=== PATIENT | male | born 1970 | race Two or more races ===

== ENCOUNTER 2024-01-07 17:06 | Inpatient (IN) | payer MEDICAID ==
[~2024-01-07] VITALS: Ht 162.6 cm; Wt 54.5 kg
[2024-01-07 18:02] LABS: Basophils # (auto) 0 10 ^3/uL (0-0.2); Basophils % (auto) 0.6 % (0.0-2.0); Eosinophils # (auto) 0.1 10 ^3/uL (0-0.8); Eosinophils % (auto) 0.9 % (0.0-7.0); Hematocrit 41.9 % (41.0-53.0); Hemoglobin 13.9 g/dL (13.5-17.5); Lymphocytes # (auto) 1.6 10 ^3/uL (0.4-5.4); Lymphocytes % (auto) 22.8 % (10.0-50.0); Mean Corpuscular Hgb Conc. 33.1 g/dL (32.0-36.0); Mean Corpuscular Volume 90.5 fL (80.0-100.0); Monocytes # (auto) 0.5 10 ^3/uL (0-1.3); Monocytes % (auto) 6.7 % (0.0-12.0); Neutrophils # (auto) 4.9 10 ^3/uL (1.6-8.6); Nucleated Red Blood Cells % 0.1 %; Red Blood Cells 4.63 10^6/uL (4.5-5.90); Red Cell Distribution Width 13.3 % (11.8-14.3); White Blood Cell 7.1 10^3/uL (4.4-10.8)
[2024-01-07 18:12] LABS: Chloride 102 mmol/L (98-107); Potassium 3.7 mmol/L (3.5-5.1); Sodium 135 mmol/L (136-145)
[2024-01-07 18:13] LABS: Anion Gap 7 (5-15); Carbon Dioxide 26 mmol/L (20-30)
[2024-01-07 18:14] LABS: Calcium 9.3 mg/dL (8.5-10.1)
[2024-01-07 18:18] LABS: BUN/Creatinine Ratio 11.3 (10.0-20.0); Blood Urea Nitrogen 9 mg/dL (9-23); Glucose 376 mg/dL (74-106)
[2024-01-07 18:24] LABS: Lactic Acid w/Reflex 3.9 mmol/L (0.4-2.0)
[2024-01-07] MEDS: SODIUM CHLORIDE 0.9% 1,650 ML IV ONE (20:32)
[2024-01-07] MEDS: VANCOMYCIN 1GM/200ML 200 ML IV ONE (20:32)
[2024-01-07] MEDS: cefTRIAXone 1GM/50ML D5W 50 ML IV ONE (20:32)
[2024-01-07] MEDS ORDERED: DEXTROSE (50%) 50ML SYRG IV PRN ×2 (22:15→22:30)
[2024-01-07] MEDS ORDERED: ONDANSETRON HCL 4 MG/2 ML VIAL IV PRN ×2 (22:15→22:30)
[2024-01-07] MEDS ORDERED: ACETAMINOPHEN 325 MG TAB PO PRN ×2 (22:15→22:30)
[2024-01-07] MEDS ORDERED: HYDROcodone-ACET 5/325MG TAB PO PRN (22:15)
[2024-01-07] MEDS: HYDROcodone-ACET 5/325MG TAB PO PRN (23:01)
[2024-01-08] MEDS ORDERED: InsuLIN REG 1unit/0.01ml Soln (100units/ml) SC SCH
[2024-01-08] MEDS ORDERED: ACCU-CHEK COMFORT CURVE STRIP VI SCH
[2024-01-08] MEDS: ACCU-CHEK COMFORT CURVE STRIP VI SCH (01:13)
[2024-01-08] MEDS: InsuLIN REG 1unit/0.01ml Soln (100units/ml) SC SCH (01:15)
[2024-01-08 02:52] VITALS: PULSE 93; RESP 15; O2SAT 100
[2024-01-08 04:32] LABS: Urine Bacteria NONE SEEN /hpf (None Seen); Urine Blood Negative /uL (Negative); Urine Clarity Clear (Clear); Urine Color Colorless (Yellow); Urine Protein, UAD Negative (Negative); Urine Specific Gravity 1.022 (1.001-1.035); Urine Urobilinogen Normal (Negative); Urine WBC 1 /hpf (0 - 3)
[2024-01-08] MEDS: CLINDAMYCIN 600MG IV 50 ML IV SCH (05:05)
[2024-01-08 05:16] LABS: Basophils # (auto) 0 10 ^3/uL (0-0.2); Basophils % (auto) 0.4 % (0.0-2.0); Eosinophils # (auto) 0.1 10 ^3/uL (0-0.8); Eosinophils % (auto) 1.3 % (0.0-7.0); Hematocrit 38.8 % (41.0-53.0); Hemoglobin 13.3 g/dL (13.5-17.5); Lymphocytes # (auto) 1.5 10 ^3/uL (0.4-5.4); Lymphocytes % (auto) 24.2 % (10.0-50.0); Mean Corpuscular Hemoglobin 30.6 pg (28.0-32.0); Mean Corpuscular Hgb Conc. 34.2 g/dL (32.0-36.0); Mean Corpuscular Volume 89.5 fL (80.0-100.0); Monocytes # (auto) 0.6 10 ^3/uL (0-1.3); Monocytes % (auto) 9.1 % (0.0-12.0); Nucleated Red Blood Cells % 0.1 %; Red Blood Cells 4.33 10^6/uL (4.5-5.90); Red Cell Distribution Width 13.2 % (11.8-14.3); White Blood Cell 6.1 10^3/uL (4.4-10.8)
[2024-01-08 05:42] LABS: Alanine Aminotransferase 12 U/L (7-40); Albumin 3.4 g/dL (3.2-4.8); Alkaline Phosphatase 176 U/L (46-116); Anion Gap 6 (5-15); Aspartate Aminotransferase 15 U/L (13-40); BUN/Creatinine Ratio 14.3 (10.0-20.0); Bilirubin, Total 0.5 mg/dL (0.2-1.0); Blood Urea Nitrogen 8 mg/dL (9-23); Calcium 9.3 mg/dL (8.7-10.4); Carbon Dioxide 26 mmol/L (20-30); Chloride 107 mmol/L (98-107); Potassium 3.1 mmol/L (3.5-5.1); Sodium 139 mmol/L (136-145); Total Protein 5.9 g/dL (5.7-8.2)
[2024-01-08 05:51] LABS: Glucose 118 mg/dL (74-106)
[2024-01-08] MEDS ORDERED: CLINDAMYCIN 600MG IV 50 ML IV SCH (06:00)
[2024-01-08] MEDS: hydrALAZINE HCL 20 MG/ML VL IV PRN (06:11)
[2024-01-08] MEDS: LISINOPRIL 5 MG TAB PO SCH (09:04)
[2024-01-08] MEDS ORDERED: LISINOPRIL 5 MG TAB PO SCH (10:00)
[2024-01-08 10:08] VITALS: PULSE 103; RESP 15
[2024-01-08] MEDS ORDERED: POTASSIUM EFFERVESENT TAB 25 MEQ GT ONE (11:00)
[2024-01-08 11:24] LABS: Triglycerides 163 mg/dL (< 150)
[2024-01-08 11:25] LABS: LDL Cholesterol 132 mg/dL (< 100)
[2024-01-08 11:26] LABS: Cholesterol 194 mg/dL (< 200); HDL Cholesterol 54 mg/dL (40-59)
[2024-01-08 12:07] VITALS: O2SAT 98
[2024-01-08] MEDS: ENOXAPARIN SOD 40 MG/0.4 ML SYRINGE SC ONE (12:25)
[2024-01-08] MEDS: POTASSIUM EFFERVESENT TAB 25 MEQ PO ONE (12:25)
[2024-01-08] MEDS: PANTOPRAZOLE 40 MG TAB PO ONE (12:26)
[2024-01-08] MEDS: ATORVASTATIN 20 MG TAB PO ONE (12:26)
[2024-01-08] MEDS ORDERED: CLIN-203 PO (13:47)
[2024-01-08] MEDS ORDERED: ERGO1CAP23 PO (14:57)
[2024-01-08] MEDS: CLINDAMYCIN HCL 150 MG CAP PO SCH (15:03)
[2024-01-08 16:15] VITALS: BP 154/98; TEMP 36.4
[2024-01-08] MEDS ORDERED: INSULIN LANTUS (GLARGINE) 1 /0.01ml (100units/ml) SC SCH (18:00)
[2024-01-08] MEDS ORDERED: ATORVASTATIN 20 MG TAB PO SCH (22:00)
[2024-01-09] MEDS ORDERED: ENOXAPARIN SOD 40 MG/0.4 ML SYRINGE SC SCH (10:00)
[2024-01-09] MEDS ORDERED: LISINOPRIL 5 MG TAB PO SCH (10:00)
[2024-01-09] MEDS ORDERED: PANTOPRAZOLE 40 MG TAB PO SCH (10:00)
== END 2024-01-08 17:44 | disposition home or self-care (01) | DRG 351 ==
LOC: ER 17:06 → OVERFLOW 22:22 → ER 22:22 → WEST WING 01-08 11:37
PROVIDERS: ADMIT Internal Medicine Pulmonary Disease; ATTEND Internal Medicine Pulmonary Disease
DX: M25.461 Effusion, right knee (principal); E87.20 Acidosis, unspecified; E11.621 Type 2 diabetes mellitus with foot ulcer; E11.65 Type 2 diabetes mellitus with hyperglycemia; L03.115 Cellulitis of right lower limb; L03.116 Cellulitis of left lower limb; F17.210 Nicotine dependence, cigarettes, uncomplicated; I10 Essential (primary) hypertension; E55.9 Vitamin D deficiency, unspecified; M48.061 Spinal stenosis, lumbar region without neurogenic claudication; Z79.4 Long term (current) use of insulin; Z90.49 Acquired absence of other specified parts of digestive tract
CPT/HCPCS: 36415; 72131; 73700; 73721; 80048; 80053; 80061; 81001; 82306; 82962; 83036; 83605; 84439; 84443; 85025; 87040; 93005; 96365; 96368; G0378; J1815; J3490

== ENCOUNTER 2024-01-18 20:10 | Inpatient (IN) | payer MEDICAID ==
[~2024-01-18] VITALS: Ht 165.1 cm; Wt 63.5 kg
[~2024-01-18 20:10] MED LIST: CLIN-203 PO; ERGO1CAP23 PO
[2024-01-18 21:28] LABS: Urine Bacteria None Seen /hpf (None Seen)
[2024-01-18 21:45] LABS: Urine Amorphous Crystal FEW /hpf (None Seen); Urine Blood Negative /uL (Negative); Urine Clarity Clear (Clear); Urine Color Light-Yellow (Yellow); Urine Protein, UAD Negative (Negative); Urine Specific Gravity 1.014 (1.001-1.035); Urine Urobilinogen Normal (Negative); Urine WBC 1 /hpf (0 - 3)
[2024-01-18 23:31] LABS: Basophils # (auto) 0 10 ^3/uL (0-0.2); Basophils % (auto) 0.3 % (0.0-2.0); Eosinophils # (auto) 0.1 10 ^3/uL (0-0.8); Eosinophils % (auto) 1.3 % (0.0-7.0); Hematocrit 39.8 % (41.0-53.0); Hemoglobin 13.4 g/dL (13.5-17.5); Lymphocytes # (auto) 1.6 10 ^3/uL (0.4-5.4); Lymphocytes % (auto) 16.4 % (10.0-50.0); Mean Corpuscular Hemoglobin 30.6 pg (28.0-32.0); Mean Corpuscular Hgb Conc. 33.6 g/dL (32.0-36.0); Mean Corpuscular Volume 91.1 fL (80.0-100.0); Monocytes # (auto) 0.7 10 ^3/uL (0-1.3); Monocytes % (auto) 7.5 % (0.0-12.0); Neutrophils # (auto) 7.4 10 ^3/uL (1.6-8.6); Neutrophils % (auto) 74.5 % (37.0-80.0); Red Blood Cells 4.36 10^6/uL (4.5-5.90); Red Cell Distribution Width 13.6 % (11.8-14.3); White Blood Cell 9.9 10^3/uL (4.4-10.8)
[2024-01-19 00:01] LABS: Alanine Aminotransferase 19 U/L (7-40); Albumin 3.8 g/dL (3.2-4.8); Alkaline Phosphatase 206 U/L (46-116); Anion Gap 6 (5-15); Aspartate Aminotransferase 20 U/L (13-40); BUN/Creatinine Ratio 10.3 (10.0-20.0); Bilirubin, Total 0.2 mg/dL (0.2-1.0); Blood Urea Nitrogen 12 mg/dL (9-23); Carbon Dioxide 27 mmol/L (20-30); Chloride 104 mmol/L (98-107); Glucose 294 mg/dL (74-106); Potassium 4.4 mmol/L (3.5-5.1); Sodium 137 mmol/L (136-145); Total Protein 6.7 g/dL (5.7-8.2)
[2024-01-19 00:14] LABS: Erythrocyte Sedimentation Rate 35 mm/hr (0-20)
[2024-01-19] MEDS: metroNIDAZOLE 500MG/100ML 100 ML IV ONE (06:38)
[2024-01-19 08:14] VITALS: O2SAT 99
[2024-01-19] MEDS: AMPICILLIN & SULBACTAM SODIUM 3 GM in SODIUM CHL 0.9% 100 ML IV SCH (08:43)
[2024-01-19] MEDS ORDERED: DEXTROSE (50%) 50ML SYRG IV PRN (09:15)
[2024-01-19] MEDS ORDERED: ONDANSETRON HCL 4 MG/2 ML VIAL IV PRN (09:15)
[2024-01-19] MEDS ORDERED: DOCUSATE SOD 100 MG CAP PO PRN (09:15)
[2024-01-19] MEDS: MORPHINE SULFATE INJ 2 MG/ml SYRG ONE ×2 (09:17→21:57)
[2024-01-19] MEDS: ONDANSETRON HCL 4 MG/2 ML VIAL ONE (09:17)
[2024-01-19] MEDS: MORPHINE SULFATE INJ 2 MG/ml SYRG IV ONE (09:20)
[2024-01-19] MEDS: ONDANSETRON HCL 4 MG/2 ML VIAL IV ONE (09:20)
[2024-01-19] MEDS: SODIUM CHLORIDE 0.9% 1,000 ML IV SCH (09:31)
[2024-01-19] MEDS: ENOXAPARIN SOD 40 MG/0.4 ML SYRINGE SC ONE (09:43)
[2024-01-19] MEDS: ENOXAPARIN SOD 40 MG/0.4 ML SYRINGE SC SCH (09:44)
[2024-01-19] MEDS ORDERED: LISINOPRIL 5 MG TAB PO ONE (11:45)
[2024-01-19] MEDS: ACCU-CHEK COMFORT CURVE STRIP VI SCH (12:22)
[2024-01-19] MEDS: InsuLIN REG 1unit/0.01ml Soln (100units/ml) ONE (12:24)
[2024-01-19] MEDS: LISINOPRIL 5 MG TAB ONE (12:25)
[2024-01-19] MEDS: PIPERACILLIN-TAZOB 3.375GM 100 ML IV ONE (12:25)
[2024-01-19] MEDS: LISINOPRIL 5 MG TAB PO ONE (12:27)
[2024-01-19] MEDS: InsuLIN REG 1unit/0.01ml Soln (100units/ml) SC SCH (12:27)
[2024-01-19] MEDS: PIPERACILLIN-TAZOB 3.375GM 100 ML IV SCH ×2 (12:27→21:57)
[2024-01-19 16:16] VITALS: PULSE 89; RESP 16; O2SAT 98
[2024-01-19] MEDS ORDERED: INSU100I70 SC (16:57)
[2024-01-19] MEDS ORDERED: INSU100I4 SC (16:57)
[2024-01-19] MEDS ORDERED: InsuLIN REG 1unit/0.01ml Soln (100units/ml) ONE (18:41)
[2024-01-19 21:00] VITALS: BP 125/98; PULSE 91; RESP 18; TEMP 97.9; O2SAT 98
[2024-01-19] MEDS: MORPHINE SULFATE INJ 2 MG/ml SYRG IV PRN (21:56)
[2024-01-20] VITALS (7 sets, daily range): BP systolic 109–148; BP diastolic 75–88; PULSE 89–96; RESP 17–19; TEMP 97.9–98.8; O2SAT 97–100
[2024-01-20] MEDS ORDERED: MORPHINE SULFATE INJ 2 MG/ml SYRG ONE ×3 (08:50→20:30)
[2024-01-20] MEDS: LISINOPRIL 5 MG TAB PO SCH (09:13)
[2024-01-20] MEDS ORDERED: LISINOPRIL 5 MG TAB PO SCH (10:00)
[2024-01-20] MEDS: InsuLIN REG 1unit/0.01ml Soln (100units/ml) ONE (11:55)
[2024-01-20 12:13] LABS: Basophils # (auto) 0 10 ^3/uL (0-0.2); Basophils % (auto) 0.5 % (0.0-2.0); Eosinophils # (auto) 0.1 10 ^3/uL (0-0.8); Eosinophils % (auto) 1.7 % (0.0-7.0); Hematocrit 35.9 % (41.0-53.0); Hemoglobin 11.8 g/dL (13.5-17.5); Lymphocytes # (auto) 1.5 10 ^3/uL (0.4-5.4); Lymphocytes % (auto) 22.6 % (10.0-50.0); Mean Corpuscular Hemoglobin 30.1 pg (28.0-32.0); Mean Corpuscular Volume 91.4 fL (80.0-100.0); Monocytes # (auto) 0.5 10 ^3/uL (0-1.3); Monocytes % (auto) 7.1 % (0.0-12.0); Neutrophils # (auto) 4.6 10 ^3/uL (1.6-8.6); Neutrophils % (auto) 68.1 % (37.0-80.0); Red Blood Cells 3.92 10^6/uL (4.5-5.90); Red Cell Distribution Width 13.8 % (11.8-14.3); White Blood Cell 6.8 10^3/uL (4.4-10.8)
[2024-01-20 12:25] LABS: Chloride 107 mmol/L (98-107); Potassium 3.6 mmol/L (3.5-5.1); Sodium 140 mmol/L (136-145)
[2024-01-20 12:26] LABS: Anion Gap 9 (5-15); Calcium 8.6 mg/dL (8.5-10.1); Carbon Dioxide 24 mmol/L (20-30)
[2024-01-20 12:31] LABS: BUN/Creatinine Ratio 18.3 (10.0-20.0); Blood Urea Nitrogen 11 mg/dL (9-23)
[2024-01-20 12:33] LABS: Glucose 143 mg/dL (74-106)
[2024-01-20] MEDS ORDERED: InsuLIN REG 1unit/0.01ml Soln (100units/ml) ONE (17:34)
[2024-01-21] VITALS (7 sets, daily range): BP systolic 112–163; BP diastolic 78–97; PULSE 88–98; RESP 18–20; TEMP 97.4–98.3; O2SAT 97–100
[2024-01-21] MEDS ORDERED: MORPHINE SULFATE INJ 2 MG/ml SYRG ONE (02:54)
[2024-01-21] MEDS: hydrALAZINE HCL 20 MG/ML VL IV PRN (06:41)
[2024-01-21 07:40] LABS: Basophils # (auto) 0 10 ^3/uL (0-0.2); Basophils % (auto) 0.7 % (0.0-2.0); Eosinophils # (auto) 0.1 10 ^3/uL (0-0.8); Eosinophils % (auto) 1.3 % (0.0-7.0); Hematocrit 39.4 % (41.0-53.0); Hemoglobin 12.6 g/dL (13.5-17.5); Lymphocytes # (auto) 1.4 10 ^3/uL (0.4-5.4); Lymphocytes % (auto) 20.8 % (10.0-50.0); Mean Corpuscular Hemoglobin 30.2 pg (28.0-32.0); Mean Corpuscular Hgb Conc. 31.9 g/dL (32.0-36.0); Mean Corpuscular Volume 94.7 fL (80.0-100.0); Monocytes # (auto) 0.6 10 ^3/uL (0-1.3); Monocytes % (auto) 8.2 % (0.0-12.0); Neutrophils # (auto) 4.8 10 ^3/uL (1.6-8.6); Nucleated Red Blood Cells % 0.1 %; Red Blood Cells 4.16 10^6/uL (4.5-5.90); White Blood Cell 6.9 10^3/uL (4.4-10.8)
[2024-01-21 07:51] LABS: Chloride 106 mmol/L (98-107)
[2024-01-21 07:52] LABS: Anion Gap 5 (5-15); Calcium 8.8 mg/dL (8.7-10.4); Carbon Dioxide 24 mmol/L (20-30)
[2024-01-21 07:57] LABS: Glucose 146 mg/dL (74-106); Magnesium 1.8 mg/dL (1.6-2.6)
[2024-01-21 08:01] LABS: BUN/Creatinine Ratio 8.9 (10.0-20.0); Blood Urea Nitrogen < 5 mg/dL (9-23); Sodium 135 mmol/L (136-145)
[2024-01-21] MEDS: LISINOPRIL 20 MG TAB PO SCH (10:06)
[2024-01-21] MEDS: HYDROcodone-ACET 5/325MG TAB PO ONE (11:22)
[2024-01-21] MEDS: HYDROcodone-ACET 5/325MG TAB PO PRN (16:01)
[2024-01-21] MEDS: MORPHINE SULFATE INJ 2 MG/ml SYRG IV PRN (21:13)
[2024-01-21 23:23] LABS: Amphetamine Screen, Urine Neg (NEGATIVE); Barbiturate Scree,Urine Neg (NEGATIVE); Benzodiazephine Screen, Urine Neg (NEGATIVE); Cocaine Screen, Urine Neg (NEGATIVE)
[2024-01-21 23:24] LABS: Cannabinoid Screen, Urine Pos (NEGATIVE); Opiate Scree,Urine Neg (NEGATIVE); Phencyclidine Screen, Urine Neg (NEGATIVE)
[2024-01-21 23:31] LABS: Urine Bacteria FEW /hpf (None Seen); Urine Blood 3+ /uL (Negative); Urine Clarity Turbid (Clear); Urine Color Colorless (Yellow); Urine Protein, UAD Negative (Negative); Urine Specific Gravity 1.017 (1.001-1.035); Urine Urobilinogen Normal (Negative); Urine WBC 8 /hpf (0 - 3); Urine pH 6.5 (5.0-9.0)
[2024-01-22 06:02] LABS: Basophils # (auto) 0 10 ^3/uL (0-0.2); Basophils % (auto) 0.4 % (0.0-2.0); Eosinophils # (auto) 0.1 10 ^3/uL (0-0.8); Eosinophils % (auto) 2.5 % (0.0-7.0); Hematocrit 32.9 % (41.0-53.0); Hemoglobin 11.2 g/dL (13.5-17.5); Lymphocytes # (auto) 1.2 10 ^3/uL (0.4-5.4); Mean Corpuscular Hemoglobin 30.8 pg (28.0-32.0); Mean Corpuscular Volume 90.5 fL (80.0-100.0); Monocytes # (auto) 0.6 10 ^3/uL (0-1.3); Monocytes % (auto) 10.7 % (0.0-12.0); Neutrophils # (auto) 3.8 10 ^3/uL (1.6-8.6); Neutrophils % (auto) 65.4 % (37.0-80.0); Red Blood Cells 3.63 10^6/uL (4.5-5.90); Red Cell Distribution Width 13.3 % (11.8-14.3); White Blood Cell 5.8 10^3/uL (4.4-10.8)
[2024-01-22 06:09] LABS: Anion Gap 4 (5-15); Carbon Dioxide 28 mmol/L (20-30); Chloride 102 mmol/L (98-107); Sodium 134 mmol/L (136-145)
[2024-01-22 06:10] LABS: Calcium 8.7 mg/dL (8.7-10.4)
[2024-01-22 06:11] VITALS: BP 155/96; PULSE 79; RESP 19; TEMP 98.7; O2SAT 97
[2024-01-22 06:15] LABS: BUN/Creatinine Ratio 12.7 (10.0-20.0); Blood Urea Nitrogen 8 mg/dL (9-23); Magnesium 1.7 mg/dL (1.6-2.6)
[2024-01-22 06:26] LABS: Glucose 344 mg/dL (74-106)
[2024-01-22 09:00] VITALS: BP 134/84; PULSE 90; RESP 20; TEMP 98.3; O2SAT 96
[2024-01-22] MEDS: INSULIN LANTUS (GLARGINE) 1 /0.01ml (100units/ml) SC SCH (10:00)
[2024-01-22 12:06] LABS: PSA Free 0.08 ng/mL; Prostate Specific Antigen 0.8 ng/mL (0.0-4.0)
[2024-01-22 12:45] VITALS: BP 130/69; PULSE 93; RESP 20; TEMP 98.2; O2SAT 97
[2024-01-22] MEDS ORDERED: KETOROLAC TROMETH 30 MG/ML 1ML VIAL IV PRN (14:00)
[2024-01-22] MEDS: HYDROcodone-ACET 7.5/325MG TAB PO PRN (16:29)
[2024-01-22] MEDS: cefTRIAXone 1GM/50ML D5W 50 ML IV ONE (16:29)
[2024-01-22 17:00] VITALS: BP 143/87; PULSE 85; RESP 18; TEMP 97.9; O2SAT 97
[2024-01-22] MEDS ORDERED: CIPR-214 PO (18:13)
[2024-01-22] MEDS ORDERED: LISI20TA56 PO (18:13)
[2024-01-23] MEDS ORDERED: cefTRIAXone 1GM/50ML D5W 50 ML IV SCH (09:00)
[2024-01-23 09:06] LABS: PSA Free 0.08 ng/mL; Prostate Specific Antigen 0.8 ng/mL (0.0-4.0)
== END 2024-01-22 20:50 | disposition home or self-care (01) | DRG 466 ==
LOC: ER 20:10 → OVERFLOW 01-19 11:40 → ER 01-19 11:40 → CENTRAL 01-19 16:00
PROVIDERS: ADMIT Internal Medicine Pulmonary Disease; ATTEND Internal Medicine Pulmonary Disease
DX: T83.511A Infection and inflammatory reaction due to indwelling urethral catheter, initial encounter (principal); E11.621 Type 2 diabetes mellitus with foot ulcer; L97.519 Non-pressure chronic ulcer of other part of right foot with unspecified severity; E11.65 Type 2 diabetes mellitus with hyperglycemia; D64.9 Anemia, unspecified; F17.210 Nicotine dependence, cigarettes, uncomplicated; N39.0 Urinary tract infection, site not specified; K52.9 Noninfective gastroenteritis and colitis, unspecified; R33.9 Retention of urine, unspecified; I10 Essential (primary) hypertension; M48.061 Spinal stenosis, lumbar region without neurogenic claudication; L97.529 Non-pressure chronic ulcer of other part of left foot with unspecified severity; Z90.49 Acquired absence of other specified parts of digestive tract
CPT/HCPCS: 36415; 71250; 72131; 72170; 73721; 74176; 76775; 80048; 80053; 80307; 81001; 82962; 83605; 83735; 83880; 84154; 84484; 85025; 85652; 87040; 87086; 97110; 97116; 97530; G0378; J1815; J2405; J2543; J3490

== ENCOUNTER 2024-09-12 18:00 | Inpatient (IN) | payer MEDICAID ==
[~2024-09-12] VITALS: Ht 170.2 cm; Wt 55.0 kg
[~2024-09-12 18:00] MED LIST changes: +CIPR-214 PO; +INSU100I4 SC; +INSU100I70 SC; +LISI20TA56 PO
[2024-09-12] MEDS: INSULIN LISPRO (HUMAN) 100 UNITS/ML ML SC ONE (18:15)
[2024-09-12 18:20] VITALS: PULSE 95; RESP 16; O2SAT 100
--- NOTE | 2024-09-12 18:25 | ED.PDOC ---
HPI Comments 54 y.o male with PMH of HTN and DM, presents to the ED via EMS for a chief complaint of sternal chest pain that started 2 hours ago. Patient describes pain as a pressure sensation, is non radiating and constant. EMS reports administrating one 324mg ASA and one NTG dose with some relief and state they later gave another NTG dose which brought patient's blood pressure down to 90/62. Patient received 500 bolus en route as well due to high blood glucose reading 557. Patient mentions he is not compliant with medications. No associating symptoms reported. Chief Complaint: Chest Pain Time Seen by MD: 18:15 Reviewed Notes: Nurses Notes, Job Setter Honing Notes, Medications, Allergies Allergies: Coded Allergies: NO KNOWN ALLERGIES (Unverified , 01/07/24) Home Meds Active Scripts Ciprofloxacin HCl (Ciprofloxacin Hydrochlori) 500 Mg Tab, 500 MG PO DAILY for 7 Days, #7 TAB Prov:CHARLIE ROJAS RESIDENT 01/22/24 Lisinopril (Lisinopril) 20 Mg Tab, 20 MG PO DAILY for 30 Days, #30 TAB Prov:CHARLIE ROJAS RESIDENT 01/22/24 Ergocalciferol (VITAMIN D 82314 UNIT) 50,000 [place], [address]87 UNIT PO ONCE A WEEK, #6 CAP Prov:JOSH TORREZ RESIDENT 01/08/24 Clindamycin HCl (Clindamycin Hydrochloride) 300 Mg Cap, 300 MG PO QID for 5 Days, #20 CAP Prov:JOSH TORERZ RESIDENT 01/08/24 Reported Medications Insulin Glargine-Yfgn (Insulin Glargine) 100 Unit/Ml Inj, 100 UNIT SC for DIABETES, INJ 01/19/24 Insulin Lispro (Humalog Kwikpen) 100 Unit/Ml Inj, 100 UNIT SC for DIABETES, INJ 01/19/24 Information Source: Patient, Emergency Med Personnel Mode of Arrival: EMS Severity: Moderate Timing: Hours Duration: Since onset Prehospital treatment: 12 Lead EKG, Accucheck (557), ASA, Service Center Representative, IVF, NTG (x2) Location: Substernal Radiation: No Radiation Quality: Pressure Onset: At Rest Cardiac Risk Factors: HTN, Diabetes PE Risk Factors: None History of: None Modifying Factors: Nothing Past Medical History PAST MEDICAL HISTORY: DM, HTN Surgical History: Appendectomy, Denies all surgeries Family History Family History: Reviewed,noncontributory to illness Social History Smoker: Cigarettes Alcohol: Occasionally Drugs: Marijuana Lives In: Home Constitutional: reports: weakness; denies: chills, diaphoresis, fatigue, fever, malaise, sweats, others EENTM: denies: blurred vision, double vision, ear bleeding, ear discharge, ear drainage, ear pain, ear ringing, eye pain, eye redness, hearing loss, mouth pain, mouth swelling, nasal discharge, nose bleeding, nose congestion, nose pain, photophobia, tearing, throat pain, throat swelling, voice changes, others Respiratory: denies: cough, hemoptysis, orthopnea, SOB at rest, shortness of breath, SOB with excertion, stridor, wheezing, others Cardiovascular: reports: chest pain; denies: dizzy spells, diaphoresis, Dyspnea on exertion, edema, irregular heart beat, left arm pain, lightheadedness, palpitations, PND, syncope, others Gastrointestinal: denies: abdomen distended, abdominal pain, blood streaked bowels, constipated, diarrhea, dysphagia, difficulty swallowing, hematemesis, melena, nausea, poor appetite, poor fluid intake, rectal bleeding, rectal pain, vomiting, others Genitourinary: denies: burning, dysuria, flank pain, frequency, hematuria, incontinence, penile discharge, penile sore, pain, testicle pain, testicle swelling, urgency, others Neurological: denies: dizziness, fainting, headache, left sided numbness, left sided weakness, numbness, paresthesia, pre-existing deficit, right sided numbness, right sided weakness, seizure, speech problems, tingling, tremors, weakness, others Musculoskeletal: denies: back pain, gout, joint pain, joint swelling, muscle pain, muscle stiffness, neck pain, others Integumetry: denies: bruises, change in color, change in hair/nails, dryness, laceration, lesions, lumps, rash, wounds, others Allergic/Immunocompromised: denies: Difficulty Healing, Frequent Infections, Hives, Itching, others Hematologic/Lymphatic: denies: anemia, blood clots, easy bleeding, easy bruising, swollen glands, others Endocrine: denies: excessive hunger, excessive sweating, excessive thirst, excessive urination, flushing, intolerance to cold, intolerance to heat, unexplained weight gain, unexplained weight loss, others Psychiatric: denies: anxiety, bipolar disorder, depression, hopeless, panic disorder, schizophrenia, sleepless, suicidal, others All Other Systems: Reviewed and Negative Physical Exam General Appearance: Moderate Distress (Moderate distress due to chest pain concerns.), Normal HEENT: Normal ENT Inspection, Pharynx Normal, TMs Normal Neck: Full Range of Motion, Non-Tender, Normal, Normal Inspection Respiratory: Chest Non-Tender, Lungs Clear, No Accessory Muscle Use, No Respiratory Distress, Normal Breath Sounds Cardiovascular: No Edema, No JVD, No Murmur, No Gallop, Normal Peripheral Puls es, Regular Rate/Rhythm Breast Exam: Deferred Gastrointestinal: No Organomegaly, Non Tender, No Pulsatile Mass, Normal Bowel Sounds, Soft Genitalia: Deferred Pelvic: Deferred Rectal: Deferred Extremities: No calf tenderness, Normal capillary refill, Normal inspection, Normal range of motion, Non-tender, No pedal edema Musculoskeletal : Apperance: Normal Neurologic: Alert, No Motor Deficits, Normal Affect, Normal Mood, No Sensory Deficits Cerebellar Function: Normal Reflexes: Normal Skin: Dry, Normal Color, Warm Lymphatic: No Adenopathy Was a procedure done? Was a procedure done?: No CP Differential Dx Differential Diagnosis: A-fib, Atrial Dysrhythmia, AV Block 1st Degree, VA, N/A Differential Diagnosis: Angina, Chest Wall Pain, Gastritis, Myocardial Infarction, Pericarditis, Pneumonia X-Ray, Labs, Meds, VS Vital Signs Date Time Temp Pulse Resp B/P (MAP) Pulse Ox O2 Delivery O2 Flow Rate FiO2 09/12/24 20:44 56 14 100 Room Air* 0 21 09/12/24 20:30 94 09/12/24 20:04 98.7 55 16 109/79 (89) 100 98.7 09/12/24 18:20 95 16 100 Room Air* 0 21 09/12/24 18:20 98.6 95 16 102/68 (79) 100 98.6 09/12/24 18:12 98.2 97 18 88/61 (70) 96 09/12/24 18:02 95 Lab Test 09/12/24 21:38 09/12/24 19:31 09/12/24 18:57 09/12/24 18:50 Range/Units Troponin I High Sensitivity 3 L < 3 L </=54 ng/L Urine Color Light-yellow Yellow Urine Clarity Clear Clear Urine pH 6.0 5.0-9.0 Urine Specific [place] 1.027 1.001-1.035 Urine Protein Negative Negative Urine Ketones Negative Negative Urine Blood Negative Negative /uL Urine Nitrite Negative Negative Urine Bilirubin Negative Negative Urine Urobilinogen Normal Negative mg/dL Urine Leukocyte Esterase Negative Negative /uL Urine RBC <1 0 - 3 /hpf Urine WBC 1 0 - 3 /hpf Urine Squamous Epithelial Cells Few <5 /hpf Urine Bacteria None seen None Seen /hpf Urine Glucose 4+ H Normal mg/dL Blood Gas Specimen Type Arterial Blood Gas Sample Site Left radial Blood Gas Patient Temperature 37.0 Arterial Blood Date Drawn [id number] Arterial Blood pH 7.418 7.350-7.450 Arterial Blood Partial Pressure CO2 37.7 35.0-48.0 mmHg Arterial Blood Partial Pressure O2 88.3 83.0-108.0 mmHg Arterial Blood HCO3 23.8 21.0-28.0 mmol/L Arterial Blood Oxygen Saturation 96.3 94.0-98.0 % Arterial Blood Base Excess -0.5 -2.0-3.0 mmol/L Arterial Blood Oxyhemoglobin 95.0 94.0-98.0 % Arterial Blood Carboxyhemoglobin 1.0 0.5-1.5 % Arterial Blood Methemoglobin 0.4 0.0-1.5 % Freeman Test Yes Blood Gas Total Hemoglobin 11.10 L 13.5-17.5 g/dL Blood Gas Liter Flow 3.00 Blood Gas Modality Nasal cannula FiO2 % 32.0 Test 09/12/24 18:27 Range/Units White Blood Count 7.0 4.4-10.8 10^3/uL Red Blood Count 3.90 L 4.5-5.90 10^6/uL Hemoglobin 11.0 L 13.5-17.5 g/dL Hematocrit 34.1 L 41.0-53.0 % Mean Corpuscular Volume 87.4 80.0-100.0 fL Mean Corpuscular Hemoglobin 28.2 28.0-32.0 pg Mean Corpuscular Hemoglobin Concent 32.2 32.0-36.0 g/dL Red Cell Distribution Width 14.7 H 11.8-14.3 % Platelet Count 402 140-450 10^3/uL Mean Platelet Volume 7.1 6.9-10.8 fL Neutrophils (%) (Auto) 64.7 37.0-80.0 % Lymphocytes (%) (Auto) 24.3 10.0-50.0 % Monocytes (%) (Auto) 9.6 0.0-12.0 % Eosinophils (%) (Auto) 1.0 0.0-7.0 % Basophils (%) (Auto) 0.4 0.0-2.0 % Neutrophils # (Auto) 4.5 1.6-8.6 10 ^3/uL Lymphocytes # (Auto) 1.7 0.4-5.4 10 ^3/uL Monocytes # (Auto) 0.7 0-1.3 10 ^3/uL Eosinophils # (Auto) 0.1 0-0.8 10 ^3/uL Basophils # (Auto) 0 0-0.2 10 ^3/uL Nucleated Red Blood Cells 0.0 % Prothrombin Time 10.6 9.3-11.8 sec Prothrombin Time INR 1.00 0.9-1.15 Activated Partial Thromboplast Time 25.3 24.5-34.5 SEC Sodium Level 133 L 136-145 mmol/L Potassium Level 4.8 3.5-5.1 mmol/L Chloride Level 99 98-107 mmol/L Carbon Dioxide Level 22 20-31 mmol/L Anion Gap 12 5-15 Blood Urea Nitrogen 16 9-23 mg/dL Creatinine 0.94 0.700-1.30 mg/dL Glomerular Filtration Rate Calc 96 >90 mL/min BUN/Creatinine Ratio 17.0 10.0-20.0 Serum Glucose 379 H 74-106 mg/dL Calcium Level 9.2 8.7-10.4 mg/dL Magnesium Level 1.4 L 1.6-2.6 mg/dL Total Bilirubin 0.4 0.2-1.0 mg/dL Aspartate Amino Transferase (AST) 10 L 13-40 U/L Alanine Aminotransferase (ALT) 12 7-40 U/L Alkaline Phosphatase 168 H 46-116 U/L Troponin I High Sensitivity < 3 L </=54 ng/L B-Type Natriuretic Peptide 49.80 0-100 pg/mL Total Protein 6.1 5.7-8.2 g/dL Albumin 3.6 3.2-4.8 g/dL Beta-Hydroxybutyric Acid 0.130 < 0.4 mmol/L Current Medications Medications (Trade) Dose Ordered Sig/Gemma Route Start Time Stop Time Status Last Admin Sodium Chloride 1,000 ml @ 200 mls/hr Q5H ONCE IV 09/12/24 18:15 09/12/24 23:14 09/12/24 18:43 Insulin Human Lispro (HumaLOG) 15 units ONCE ONCE SC 09/12/24 18:15 09/12/24 18:16 DC 09/12/24 18:15 X-Ray, Labs, Meds, VS Comment All studies performed the ED were evaluated by me personally. Imaging studies of chest were unremarkable for any acute process. No cardiomegaly or consolidation noted. EKG revealed a sinus rhythm with a rate of 95. Borderline right axis deviation with borderline T-wave abnormalities. SD interval 138 and a QT interval of 362. Laboratories revealed a mild anemia, hyponatremia and a hyperglycemic concern. Patient states he does not have medications available and has not been able to secure them through her primary care provider. Patient will be admitted for his significant hyperglycemic event as well as a cardiac evaluation to address his acute coronary syndrome. Time of 1ST Reevaluation: 22:47 Reevaluation 1ST: Improved Consultation: PCP, Cardiology Patient Education/Counseling: Diagnosis, Treatment, Prognosis Family Education/Counseling: Diagnosis, Treatment, No Family Present Departure 1 Departure Time of Disposition: 22:48 Impression: Primary Impression: Acute coronary syndrome Additional Impressions: Hyperglycemia due to diabetes mellitus Anemia Hyponatremia Disposition: ADMITTED INPATIENT Condition: Stable Discharged With: Self Critical Care Note Critical Care Time?: No Stability Stability form required: No Heart Score Heart Score: Heart Score Response (Comments) Value History Slightly Suspicious 0 EKG Normal 0 Age 45-64 1 Risk Factors >3 or Hx ASHD 2 Troponin Normal limit 0 Total 3 I personally scribed for NEIL HINTON PAC ([email or web address]) on 09/12/24 at 18:25. Electronically submitted by Aundrea Whipple ([facility]). NEIL HINTON PAC Sep 12, 2024 18:25
[2024-09-12] MEDS: SODIUM CHLORIDE 0.9% 1,000 ML IV ONE (18:43)
--- NOTE | 2024-09-12 18:50 | DVH ---
EXAM: XY CHEST PORTABLE TECHNIQUE: Single frontal chest radiograph CLINICAL HISTORY: cp COMPARISON: None Findings/Impression: Frontal chest radiograph demonstrates no acute osseous or superficial soft tissue abnormalities. The trachea is midline. The cardiac silhouette and mediastinum are within normal limits. No pneumothorax, pleural effusions, or consolidations.
[2024-09-12 18:51] LABS: Basophils # (auto) 0 10 ^3/uL (0-0.2); Basophils % (auto) 0.4 % (0.0-2.0); Eosinophils # (auto) 0.1 10 ^3/uL (0-0.8); Hematocrit 34.1 % (41.0-53.0); Lymphocytes # (auto) 1.7 10 ^3/uL (0.4-5.4); Lymphocytes % (auto) 24.3 % (10.0-50.0); Mean Corpuscular Hemoglobin 28.2 pg (28.0-32.0); Mean Corpuscular Hgb Conc. 32.2 g/dL (32.0-36.0); Mean Corpuscular Volume 87.4 fL (80.0-100.0); Monocytes # (auto) 0.7 10 ^3/uL (0-1.3); Monocytes % (auto) 9.6 % (0.0-12.0); Neutrophils # (auto) 4.5 10 ^3/uL (1.6-8.6); Neutrophils % (auto) 64.7 % (37.0-80.0); Platelet Count (auto) 402 10^3/uL (140-450); Red Cell Distribution Width 14.7 % (11.8-14.3)
[2024-09-12 19:03] LABS: Base Excess -0.5 mmol/L (-2.0-3.0)
[2024-09-12 19:04] LABS: Partial Thromboplastin Time 25.3 SEC (24.5-34.5); Prothrombin Time 10.6 sec (9.3-11.8)
[2024-09-12 19:13] LABS: Urine Bacteria None Seen /hpf (None Seen)
[2024-09-12 19:30] LABS: Urine Blood Negative /uL (Negative); Urine Clarity Clear (Clear); Urine Color Light-Yellow (Yellow); Urine Protein, UAD Negative (Negative); Urine Specific Gravity 1.027 (1.001-1.035); Urine Urobilinogen Normal (Negative); Urine WBC 1 /hpf (0 - 3)
[2024-09-12 20:03] LABS: Alanine Aminotransferase 12 U/L (7-40); Albumin 3.6 g/dL (3.2-4.8); Anion Gap 12 (5-15); Blood Urea Nitrogen 16 mg/dL (9-23); Calcium 9.2 mg/dL (8.7-10.4); Carbon Dioxide 22 mmol/L (20-31); Chloride 99 mmol/L (98-107); Potassium 4.8 mmol/L (3.5-5.1)
[2024-09-12 20:04] LABS: Bilirubin, Total 0.4 mg/dL (0.2-1.0); Total Protein 6.1 g/dL (5.7-8.2)
[2024-09-12 20:07] LABS: Alkaline Phosphatase 168 U/L (46-116); Aspartate Aminotransferase 10 U/L (13-40); Glucose 379 mg/dL (74-106); Sodium 133 mmol/L (136-145)
[2024-09-12 20:44] VITALS: PULSE 56; RESP 14; O2SAT 100
[2024-09-12] MEDS ORDERED: NITROGLYCERIN 0.4 MG SL TAB SL PRN (23:30)
[2024-09-12] MEDS ORDERED: ACETAMINOPHEN 325 MG TAB PO PRN (23:30)
[2024-09-12] MEDS ORDERED: MORPHINE SULFATE INJ 2 MG/ml SYRG IV PRN ×2 (23:30)
[2024-09-12] MEDS ORDERED: ONDANSETRON HCL 4 MG/2 ML VIAL IV PRN (23:30)
[2024-09-12] MEDS: ACCU-CHEK COMFORT CURVE STRIP VI ONE (23:45)
[2024-09-12] MEDS: DEXTROSE (50%) 50ML SYRG IV ONE (23:45)
[2024-09-12] MEDS: LACTATED RINGER'S 2,000 ML IV ONE (23:45)
[2024-09-13] VITALS (7 sets, daily range): BP systolic 120–139; BP diastolic 75–101; PULSE 77–90; RESP 16–20; TEMP 97.9–98.2; O2SAT 97–100
[2024-09-13] MEDS: ERGOCALCIFEROL 50,000 UNIT(1.25MG) CAP PO SCH (00:30)
[2024-09-13] MEDS: MAGNESIUM SULFATE 1GM/100ML 100 ML IV ONE ×2 (00:30→20:12)
[2024-09-13] MEDS: InsuLIN REG 1unit/0.01ml Soln (100units/ml) SC ONE (00:32)
[2024-09-13] MEDS: LACTATED RINGER'S 1,000 ML IV ONE (00:48)
[2024-09-13 00:53] LABS: Urine Bacteria None Seen /hpf (None Seen); Urine Blood Negative /uL (Negative); Urine Clarity Clear (Clear); Urine Color Light-Yellow (Yellow); Urine Hyaline Cast FEW /lpf (0 - 2); Urine Protein, UAD Negative (Negative); Urine Urobilinogen Normal (Negative); Urine WBC None Seen /hpf (0 - 3)
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
[2024-09-13] MEDS: INSULIN LANTUS (GLARGINE) 1 /0.01ml (100units/ml) SC SCH (06:20)
[2024-09-13 07:24] LABS: Basophils # (auto) 0 10 ^3/uL (0-0.2); Basophils % (auto) 0.3 % (0.0-2.0); Eosinophils # (auto) 0.1 10 ^3/uL (0-0.8); Eosinophils % (auto) 1.5 % (0.0-7.0); Hematocrit 33.1 % (41.0-53.0); Hemoglobin 10.7 g/dL (13.5-17.5); Lymphocytes # (auto) 1.4 10 ^3/uL (0.4-5.4); Lymphocytes % (auto) 24.1 % (10.0-50.0); Mean Corpuscular Hemoglobin 28.2 pg (28.0-32.0); Mean Corpuscular Hgb Conc. 32.4 g/dL (32.0-36.0); Monocytes # (auto) 0.5 10 ^3/uL (0-1.3); Monocytes % (auto) 8.1 % (0.0-12.0); Nucleated Red Blood Cells % 0.1 %; Platelet Count (auto) 397 10^3/uL (140-450); Red Blood Cells 3.81 10^6/uL (4.5-5.90)
[2024-09-13 07:31] LABS: INR 1.01 (0.9-1.15); Prothrombin Time 10.7 sec (9.3-11.8)
[2024-09-13 07:37] LABS: Albumin 3.6 g/dL (3.2-4.8); Anion Gap 7 (5-15); BUN/Creatinine Ratio 15.9 (10.0-20.0); Bilirubin, Total 0.5 mg/dL (0.2-1.0); Blood Urea Nitrogen 13 mg/dL (9-23); Calcium 9.2 mg/dL (8.7-10.4); Carbon Dioxide 27 mmol/L (20-31); Chloride 102 mmol/L (98-107); Sodium 136 mmol/L (136-145)
[2024-09-13 07:38] LABS: % Iron Saturation 9.4 % (20-55); Alanine Aminotransferase 9 U/L (7-40); Alkaline Phosphatase 149 U/L (46-116); Aspartate Aminotransferase < 8 U/L (13-40); Glucose 241 mg/dL (74-106)
[2024-09-13] MEDS ORDERED: DEXTROSE (50%) 50ML SYRG IV PRN (12:00)
[2024-09-13] MEDS: ACCU-CHEK COMFORT CURVE STRIP VI SCH (12:15)
[2024-09-13] MEDS: InsuLIN REG 1unit/0.01ml Soln (100units/ml) SC SCH (12:23)
--- NOTE | 2024-09-13 15:05 | DVHINCON2 ---
Date Seen: Sep 13, 2024 Referring Physician Allan Reason for Consultation Chest Pain, R/O ACS History of Present Illness 54-year-old male with PMH for HTN, poorly-controlled DM, lumbar spinal stenosis, tobacco use, presents to the hospital with chest pain. Patient states he got into argument with neighbor at home and started to have increased retrosternal chest pain sharp/pressure in nature, radiating to left side, that was constant, associated with shortness of breath and finally subsided when he was more calm. Patient denies ever having any previous cardiac symptoms of chest pain, palpitation, shortness of breath in the past. Upon evaluation in the ER patient noted to be hypotensive with BP of 88/61. Glucose 379. Troponin trending negative x3. Negative proBNP. Past Medical History HTN HLD Diabetes Diabetic foot ulcers Tobacco use Lumbar spine stenosis Past Surgical History Gallbladder surgery Toe amputation Family History: Patient reports no known family medical history. Family History Denies pertinent family cardiac history Social History Patient endorses continues to smoke occasionally, does occasionally binge drink, and has a history of amphetamine/cocaine use states more than 10 years ago. Allergies: Coded Allergies: NO KNOWN ALLERGIES (Unverified , 01/07/24) Home Meds Active Scripts Ciprofloxacin HCl (Ciprofloxacin Hydrochlori) 500 Mg Tab, 500 MG PO DAILY for 7 Days, #7 TAB Prov:CHARLIE ROJAS RESIDENT 01/22/24 Lisinopril (Lisinopril) 20 Mg Tab, 20 MG PO DAILY for 30 Days, #30 TAB Prov:CHARLIE ROJAS RESIDENT 01/22/24 Ergocalciferol (VITAMIN D 68165 UNIT) 50,000 [place], [address] UNIT PO ONCE A WEEK, #6 CAP Prov:JOSH TORREZ RESIDENT 01/08/24 Clindamycin HCl (Clindamycin Hydrochloride) 300 Mg Cap, 300 MG PO QID for 5 Days, #20 CAP Prov:JOSH TORREZ RESIDENT 01/08/24 Reported Medications Insulin Glargine-Yfgn (Insulin Glargine) 100 Unit/Ml Inj, 100 UNIT SC for DIABETES, INJ 01/19/24 Insulin Lispro (Humalog Kwikpen) 100 Unit/Ml Inj, 100 UNIT SC for DIABETES, INJ 01/19/24 Current Medications Current Medications Medications (Trade) Dose Ordered Sig/Gemma Route PRN Reason Start Time Stop Time Status Last Admin Ondansetron HCl (Zofran) 4 mg Q4HP PRN IV NAUSEA / VOMITING 09/12/24 23:30 Acetaminophen (Tylenol Tablet) 650 mg Q6HP PRN PO PAIN SCALE 1-3 OR TEMP>100.4 09/12/24 23:30 Morphine Sulfate 2 mg Q4HPRN PRN IV SEVERE PAIN (7-10 PAIN SCALE) 09/12/24 23:30 Nitroglycerin (Ntrostat Sublingual) 0.4 mg Q5MINP PRN SL FOR CHEST PAIN 09/12/24 23:30 Morphine Sulfate 2 mg Q30M PRN IV FOR CHEST PAIN 09/12/24 23:30 Insulin Glargine (Lantus) 15 units QAM SC 09/13/24 07:00 09/13/24 06:20 Ergocalciferol (Vitamin D 50,000 Unit) 50,000 unit Q7D PO 09/12/24 23:45 09/13/24 00:30 Atorvastatin Calcium (Lipitor) 40 mg DAILY@DINNER PO 09/13/24 17:30 Diagnostic Test (Pha) (Accu-Chek Comfort Curve T) 1 strip IQ4HR 09/13/24 12:00 09/13/24 12:15 Insulin Human Regular (InsuLIN R) IQ4HR SC 09/13/24 12:00 09/13/24 12:23 Dextrose 50 ml UD PRN IV Blood Sugar LESS THAN 60 09/13/24 12:00 Review of Systems Constitutional: No: Fever, Chills, Sweats, Weakness, Malaise, Other Eyes: No: Pain, Vision change, Conjunctivae inflammation, Eyelid inflammation, Other, Redness ENT: No: Ear pain, Ear discharge, Nose pain, Nose discharge, Nose congestion, Mouth pain, Mouth swelling, Throat pain, Throat swelling, Other Respiratory: No: Cough, Dry, Shortness of breath, SOB with exertion, Wheezing, Hemoptysis, Pleuritic Pain, Sputum, Wheezing, Other Cardiovascular: ; No: Chest Pain Palpitations, Orthopnea, Paroxysmal Noc. Dyspnea, Edema, Lt Headedness, Other Gastrointestinal: No: Nausea, Vomiting, Abdominal Pain, Diarrhea, Constipation, Melena, Hematochezia, Other Genitourinary: No Dysuria, No Frequency, No Incontinence, No Hematuria, No Retention, No Other Musculoskeletal: neck pain; No: other, shoulder pain, arm pain, back pain, hand pain, leg pain, foot pain Skin: No: Rash, Lesions, Jaundice, Bruising, Other Neurological: Other (Dizziness, headache.); No: Weakness, Numbness, Incoordination, Change in speech, Confusion, Seizures Vital Signs Vital Signs Date Time Temp Pulse Resp B/P (MAP) Pulse Ox O2 Delivery O2 Flow Rate FiO2 09/13/24 14:48 98.0 89 14 108/83 (91) 100 98.0 09/13/24 08:00 Room Air* 0 21 Physical Exam General appearance: Patient is well-developed, well-nourished, in no acute distress. HEENT: Exam shows: Normocephalic, atraumatic, PERRLA, EOMI Neck: Supple, no bruits Chest: Equal chest excursion bilaterally. Breath sounds normal-no rales or wheezes. Heart: Rhythm: Regular rate; no murmur or gallop Abdomen: Exam shows: Soft, nontender, nondistended Musculoskeletal: No clubbing, no cyanosis, no lower extremity edema Dermatology: Skin warm, moist. Neurological: Exam shows: Alert and oriented x4, normal speech Available prior records, labs, EKG, rhythm strips reviewed and interpreted Labs/Diagnostic Data Labs Test 09/13/24 12:14 09/13/24 06:30 09/12/24 21:38 09/12/24 20:39 Range/Units POC Glucose 232 H 70-106 mg/dl White Blood Count 6.0 4.4-10.8 10^3/uL Red Blood Count 3.81 L 4.5-5.90 10^6/uL Hemoglobin 10.7 L 13.5-17.5 g/dL Hematocrit 33.1 L 41.0-53.0 % Mean Corpuscular Volume 87.0 80.0-100.0 fL Mean Corpuscular Hemoglobin 28.2 28.0-32.0 pg Mean Corpuscular Hemoglobin Concent 32.4 32.0-36.0 g/dL Red Cell Distribution Width 15.0 H 11.8-14.3 % Platelet Count 397 140-450 10^3/uL Mean Platelet Volume 7.3 6.9-10.8 fL Neutrophils (%) (Auto) 66.0 37.0-80.0 % Lymphocytes (%) (Auto) 24.1 10.0-50.0 % Monocytes (%) (Auto) 8.1 0.0-12.0 % Eosinophils (%) (Auto) 1.5 0.0-7.0 % Basophils (%) (Auto) 0.3 0.0-2.0 % Neutrophils # (Auto) 4.0 1.6-8.6 10 ^3/uL Lymphocytes # (Auto) 1.4 0.4-5.4 10 ^3/uL Monocytes # (Auto) 0.5 0-1.3 10 ^3/uL Eosinophils # (Auto) 0.1 0-0.8 10 ^3/uL Basophils # (Auto) 0 0-0.2 10 ^3/uL Nucleated Red Blood Cells 0.1 % Prothrombin Time 10.7 9.3-11.8 sec Prothrombin Time INR 1.01 0.9-1.15 Sodium Level 136 136-145 mmol/L Potassium Level 4.0 3.5-5.1 mmol/L Chloride Level 102 98-107 mmol/L Carbon Dioxide Level 27 20-31 mmol/L Anion Gap 7 5-15 Blood Urea Nitrogen 13 9-23 mg/dL Creatinine 0.82 0.700-1.30 mg/dL Glomerular Filtration Rate Calc 104 >90 mL/min BUN/Creatinine Ratio 15.9 10.0-20.0 Serum Glucose 241 #H 74-106 mg/dL Hemoglobin A1c 10.9 H <5.7 % A1C Calcium Level 9.2 8.7-10.4 mg/dL Iron Level 28 L 65-175 ug/dL Total Iron Binding Capacity 299 250-425 ug/dL Percent Iron Saturation 9.4 L 20-55 % Ferritin 10.4 L 22-322 ng/mL Total Bilirubin 0.5 0.2-1.0 mg/dL Aspartate Amino Transferase (AST) < 8 L 13-40 U/L Alanine Aminotransferase (ALT) 9 7-40 U/L Alkaline Phosphatase 149 H 46-116 U/L Total Protein 6.0 5.7-8.2 g/dL Albumin 3.6 3.2-4.8 g/dL Thyroid Stimulating Hormone (TSH) 2.13 0.55-4.78 uIU/mL Troponin I High Sensitivity 3 L </=54 ng/L Urine Color Light-yellow Yellow Urine Clarity Clear Clear Urine pH 6.0 5.0-9.0 Urine Specific [place] 1.020 1.001-1.035 Urine Protein Negative Negative Urine Ketones Negative Negative Urine Blood Negative Negative /uL Urine Nitrite Negative Negative Urine Bilirubin Negative Negative Urine Urobilinogen Normal Negative mg/dL Urine Leukocyte Esterase Negative Negative /uL Urine RBC None seen 0 - 3 /hpf Urine WBC None seen 0 - 3 /hpf Urine Squamous Epithelial Cells None seen <5 /hpf Urine Bacteria None seen None Seen /hpf Urine Hyaline Casts Few 0 - 2 /lpf Urine Glucose 4+ H Normal mg/dL Test 09/12/24 18:50 09/12/24 18:27 Range/Units Blood Gas Specimen Type Arterial Blood Gas Sample Site Left radial Blood Gas Patient Temperature 37.0 Arterial Blood Date Drawn [id number] Arterial Blood pH 7.418 7.350-7.450 Arterial Blood Partial Pressure CO2 37.7 35.0-48.0 mmHg Arterial Blood Partial Pressure O2 88.3 83.0-108.0 mmHg Arterial Blood HCO3 23.8 21.0-28.0 mmol/L Arterial Blood Oxygen Saturation 96.3 94.0-98.0 % Arterial Blood Base Excess -0.5 -2.0-3.0 mmol/L Arterial Blood Oxyhemoglobin 95.0 94.0-98.0 % Arterial Blood Carboxyhemoglobin 1.0 0.5-1.5 % Arterial Blood Methemoglobin 0.4 0.0-1.5 % Freeman Test Yes Blood Gas Total Hemoglobin 11.10 L 13.5-17.5 g/dL Blood Gas Liter Flow 3.00 Blood Gas Modality Nasal cannula FiO2 % 32.0 Activated Partial Thromboplast Time 25.3 24.5-34.5 SEC Magnesium Level 1.4 L 1.6-2.6 mg/dL B-Type Natriuretic Peptide 49.80 0-100 pg/mL Beta-Hydroxybutyric Acid 0.130 < 0.4 mmol/L Assessment * Chest Pain - troponins negative. EKG negative for acute ischemic changes. Continue on aspirin and statin. Follow up echo. Due to comorbidities recommend ischemic workup with coronary angiogram, we will plan for Sunday. * Hx HTN - stable, continue trending. * HLD - statin * Uncontrolled DM - management per primary team * Toabcco use - counseled and strongly advised cessation of use * Hypokalemia - monitoring replace electrolytes Case Discussed with Dr Shoemaker. Chest pain, rule out ACS. Troponin negative. Follow-up echo. Plan for coronary angiogram on Sunday. Continue aspirin and statin. NPO after midnight 09/15/2024 Critical care, time spent: 48 minutes This medical document was created using an electronic medical record system with voice recognition software and computerized dictation system. Although this document has been carefully reviewed, there might still be some phonetic and typographical errors. Occasional wrong-word or ``sound-alike substitutions may have occurred due to the inherent limitations of voice recognition software. These areas are purely typographical due to imperfections of the software programs and do not reflect any compromise in the patient's medical care. Mendel donnelly read the chart carefully and recognize, using context, where these substitutions have occurred. Plan discussed with: Patient Date of Service: Sep 13, 2024 Billing Provider: GETACHEW SHOEMAKER MD Cardiology Common Codes: 84996-[id number] INP/OBS CARE (High), [id number] CARE 30-74 MIN CONSTANCE DENNISON AGACN Sep 13, 2024 15:04
--- NOTE | 2024-09-13 17:22 | ECG ---
[facility] Test Date: 2024-09-12 Test Time: 18:02:04 Pat Name: ISAIAH RAMOS Department: er Room: [facility]0T B Gender: M Health Care Coach: myranda : 1970 Requested By: NEIL HINTON Order Number: [id number] Reading MD: Julian Alvarez Measurements Intervals [place] Rate: 95 P: 55 DE: 138 QRS: 98 QRSD: 95 T: -10 QT: 362 QTc: 455 Interpretive Statements Sinus rhythm Borderline right axis deviation Borderline T wave abnormalities Electronically Signed On 09-19-2024 12:13:01 PST by Julian Alvarez Please click the below link to view image of tracing.
[2024-09-13] MEDS ORDERED: OMEP-434 PO (18:05)
[2024-09-13] MEDS ORDERED: NIC21P TOP (18:06)
[2024-09-13] MEDS ORDERED: GABA-1250 PO (18:08)
[2024-09-13] MEDS ORDERED: HYDR-4902 PO (18:09)
[2024-09-13 18:13] LABS: Amphetamine Screen, Urine Neg (NEGATIVE); Barbiturate Scree,Urine Neg (NEGATIVE); Benzodiazephine Screen, Urine Neg (NEGATIVE); Cannabinoid Screen, Urine Neg (NEGATIVE); Cocaine Screen, Urine Neg (NEGATIVE); Opiate Scree,Urine Neg (NEGATIVE)
[2024-09-13] MEDS: ATORVASTATIN 20 MG TAB PO SCH (18:37)
[2024-09-13 19:13] LABS: Phencyclidine Screen, Urine Neg (NEGATIVE)
[2024-09-13] MEDS: GABAPENTIN 300 MG CAP PO SCH (20:12)
--- NOTE | 2024-09-13 20:20 | DVHPNRES ---
Progress Note Date Seen: Sep 13, 2024 Resident Creating Document: SLAVA CARRINGTONTELLY RESIDENT Medical Necessity Reason Pt with a Central, PICC or Fol: No Subjective Review of Systems Patient is a 54-year-old male with a past medical history as described below came to the ED with a chief complaint chest pain for a few hours prior to admission. Patient reported that 1 day prior to admission, patient reported t hat a person came to his house and had an argument after which the patient got anxious and started shivering and had chest pain which was substernal pressure- like, radiating to the left shoulder, associated with the shortness of breath and palpitations, denied nausea, vomiting, sweating, lasted for 10-15 mins and that relieved due in the EMS gave him tablet to put under his tongue. Patient has a history of lumbar stenosis with multiple level degenerative changes and since the past 1 year has not been able to walk and uses wheelchair to move around. Twelve lead ECG was done which revealed sinus rhythm without evidence of acute ischemia, no ST segment changes. Troponin levels were within normal limits. The patient is wheelchair-bound due to chronic pain in the lower extremities . Imaging from previous admission revealed: -6 mm subcortical cyst in the right femoral hip (MRI from January 21). 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 Home medications: Insulin lispro 4 units 3 times before meals and 24 units insulin Lantus once daily, lisinopril 20 mg daily, gabapentin 300 mg p.o. t.i.d. Review of systems Patient seen and examined at the bedside. Alert and oriented x4. At the time of examination patient denies chest pain, palpitations, shortness of breath. Vitals stable. Objective vital signs Vital Sign Date Time Temp Pulse Resp B/P (MAP) Pulse Ox O2 Delivery O2 Flow Rate FiO2 09/13/24 17:23 85 20 100 Room Air* 0 21 09/13/24 16:20 97.9 126/75 (92) 97.9 medications Current Medications Medications Dose Ordered Sig/Gemma Route Start Time Stop Time Status Last Admin Dose Admin Ondansetron HCl 4 mg Q4HP PRN IV 09/12/24 23:30 Acetaminophen 650 mg Q6HP PRN PO 09/12/24 23:30 Morphine Sulfate 2 mg Q4HPRN PRN IV 09/12/24 23:30 Nitroglycerin 0.4 mg Q5MINP PRN SL 09/12/24 23:30 Morphine Sulfate 2 mg Q30M PRN IV 09/12/24 23:30 Insulin Glargine 15 units QAM SC 09/13/24 07:00 09/13/24 06:20 15 UNITS Ergocalciferol 50,000 unit Q7D PO 09/12/24 23:45 09/13/24 00:30 50,000 UNIT Atorvastatin Calcium 40 mg DAILY@DINNER PO 09/13/24 17:30 09/13/24 18:37 40 MG Diagnostic Test (Pha) 1 strip IQ4HR 09/13/24 12:00 09/13/24 18:24 1 STRIP Insulin Human Regular IQ4HR SC 09/13/24 12:00 09/13/24 18:37 9 UNITS Dextrose 50 ml UD PRN IV 09/13/24 12:00 Examination Physical Examination Gen - no pallor, no icterus, no cyanosis, no clubbing, no LAD, no edema . Skin - Patients skin is warm and dry. HEENT - normocephalic, atraumatic, moist mucous membranes. Neck - full ROM, no LAD, no JVD. Pulmonary - B/L vesicular breath sounds. no crackles , no wheezing, no stridor. cardiovascular - normal S1,S2 heard. no murmurs heard. peripheral pulses radial 2+, pedal 1+. capillary refill normal <2 secs. GI - soft abdomen without tenderness to palpation. no hepatosplenomegaly. Bowel sounds normoactive Neurological - Patient is A/O X 3. Bilateral upper extremity strength 5/5, bilateral lower extremity strength 3/5, no facial droop, normal speech, no tremor, decreased touch sensation in the bilateral lower extremities. laboratory and microbiology Laboratory Tests 09/13/24 06:30 Test 09/13/24 06:30 Range/Units Serum Glucose 241 #H 74-106 mg/dL Labs and/or images reviewed: Labs reviewed by me, Image(s) reviewed by me Problem List/Assessment/Plan Problem List/Assessment/Plan Assessment and plan # Acute chest pain- Typical chest pain ?Unstable angina - 12 lead EKG showed partial LBBB, with no acute ischemic change - troponin negative - echo report pending - high risk factors like uncontrolled T2DM, smoking, immobility - cardiology consulted with Dr. Pierce who recommended patient may benefit from a coronary angiogram given typical chest pain and high-risk factors. - echocardiogram showed LVEF 60%, grade 1 diastolic dysfunction. - coronary angiogram to be done on Sunday09/15/24 - on aspirin 81 mg and atorvastatin 40 mg daily - nitroglycerin p.r.n. for chest pain # uncontrolled type 2 diabetes mellitus with hyperglycemia - insulin Lantus 18 units once daily - moderate insulin sliding scale q.4 hours - goal blood glucose level 140-180 mg/dL # hypertensive heart disease - on lisinopril 20 mg once daily # peripheral neuropathy - on gabapentin 300 mg t.i.d. # mild anemia likely due to iron-deficiency - hemoglobin 10.7 - iron panel showed low iron and ferritin #Tobacco use disorder Counseled on cessation for 18 minutes Goals of care discussed with the patient for 20 minutes with the help of a sheeter waxer operator. Full code Plan discussed with Plan discussed with: Patient, Other (Nurse) My Orders My Orders Orders - HORACIO CARRINGTON RESIDENT Procedure Category Date Status Time Glucose Blood PHA 09/13/24 In Process (Accu-Chek Comfort 12:00 Insulin R (Human) PHA 09/13/24 In Process (Insulin R) 12:00 Dextrose 50% Syringe PHA 09/13/24 In Process 12:00 Addendum Addendum Addendum I was physically present for the sandoval portions of the service provided to patient by THE RESIDENT. I have reviewed the documentation, discussed the case with resident and agree with the resident's documentation except as noted. Also the patient's clinical case was discussed with the patient's nurse. This medical document was created using an electronic medical record system with computerized dictation system. Although this document has been carefully reviewed, there might still be some phonetic and typographical errors. These areas are purely typographical due to imperfections of the software programs, and do not reflect any compromise in the patient's medical care. Late signature. Date of Service: Sep 13, 2024 Billing Provider: EUN RIVAS MD Common Visit Codes: [id number] INP/OBS CARE(HIGH) Secondary Visit Codes: [id number] CHNG SMOKING >10MIN (18 minutes), 51858- ADVANCED CARE PLAN 30 MINUTES (20 Minutes) HORACIO CARRINGTON RESIDENT Sep 13, 2024 20:20 EUN RIVAS MD Sep 15, 2024 11:16
--- NOTE | 2024-09-13 21:23 | DVHSR ---
APPROVED REPORT EXAM: Two-dimensional and M-mode echocardiogram with Doppler and color Doppler. Blood Pressure: 127/80 mmHg INDICATION Acute coronary syndrome RISK FACTORS Height: 5'7", Weight: 150 DIMENSIONS LVDd4.3 (3.8-5.7cm)LA (2D)3.7 (1.9-4.0cm)Aortic Root3.6 (2.0-3.7cm) LVDs3.3 (2.5-4.0cm)LA (MM) (1.9-4.0cm)Aortic Cusp Exc1.9 (1.5-2.0cm) EF (%) 47.0 (55-70%)Rt. Atrium3.8 (1.9-4.0cm)Asc. Aorta cm IVSd1.0 (0.7-1.1cm)RV (D)3.6 (1.8-2.4cm) PWd1.0 (0.7-1.1cm) Mitral Valve MitralMitral Stenosis E wave0.67m/sMV Mean GR.mmHg A wave1.03m/sMV Peak GR.mmHg E/A ratio0.72D MVAcm2 DECEL [id number] 1/2 Timems Aortic Valve Aortic ValveAortic Stenosis V10.89m/Telly Mean GR.2mmHg V21.00m/Telly Peak GR.4mmHg LVOT Diameter2.1 (1.8-2.4cm)Doppler AVA3.08cm2 Pulmonic Valve V20.86m/s Other Information Technically limited study due to body habitus, patient restless and moving during study. Conclusion Normal left ventricular size and dimension. Normal left ventricular systolic function estimated ejec tion fraction of 60%. There is a grade 1 diastolic dysfunction. Normal l right ventricular size and dimension. Normal right ventricular systolic function. Normal biatrial size and dimension. Normal aortic valve structure and function. Normal mitral valve structure and function.. Normal tricuspid structure and function. The pulmonary valve is grossly normal. No pericardial effusion.
[2024-09-14] VITALS (8 sets, daily range): BP systolic 92–131; BP diastolic 65–73; PULSE 60–94; RESP 17–20; TEMP 98–98.1; O2SAT 92–98
[2024-09-14] MEDS: INSULIN LANTUS (GLARGINE) 1 /0.01ml (100units/ml) SC SCH (05:08)
[2024-09-14 06:33] LABS: Basophils # (auto) 0 10 ^3/uL (0-0.2); Basophils % (auto) 0.3 % (0.0-2.0); Eosinophils # (auto) 0.1 10 ^3/uL (0-0.8); Eosinophils % (auto) 1.2 % (0.0-7.0); Hematocrit 34.6 % (41.0-53.0); Hemoglobin 11.3 g/dL (13.5-17.5); Lymphocytes # (auto) 1.1 10 ^3/uL (0.4-5.4); Lymphocytes % (auto) 15.8 % (10.0-50.0); Mean Corpuscular Hemoglobin 28.2 pg (28.0-32.0); Mean Corpuscular Hgb Conc. 32.8 g/dL (32.0-36.0); Mean Corpuscular Volume 85.9 fL (80.0-100.0); Monocytes # (auto) 0.7 10 ^3/uL (0-1.3); Monocytes % (auto) 9.7 % (0.0-12.0); Neutrophils # (auto) 5.3 10 ^3/uL (1.6-8.6); Platelet Count (auto) 409 10^3/uL (140-450); Red Blood Cells 4.03 10^6/uL (4.5-5.90); Red Cell Distribution Width 14.9 % (11.8-14.3); White Blood Cell 7.3 10^3/uL (4.4-10.8)
[2024-09-14 06:52] LABS: Alanine Aminotransferase 10 U/L (7-40); Anion Gap 5 (5-15); BUN/Creatinine Ratio 18.3 (10.0-20.0); Blood Urea Nitrogen 15 mg/dL (9-23); Calcium 9.3 mg/dL (8.7-10.4); Carbon Dioxide 28 mmol/L (20-31); Chloride 102 mmol/L (98-107); Magnesium 1.8 mg/dL (1.6-2.6); Potassium 4.6 mmol/L (3.5-5.1)
[2024-09-14 06:53] LABS: Albumin 3.5 g/dL (3.2-4.8); Bilirubin, Total 0.5 mg/dL (0.2-1.0); Total Protein 6.1 g/dL (5.7-8.2)
[2024-09-14 06:55] LABS: Glucose 224 mg/dL (74-106); Sodium 135 mmol/L (136-145)
[2024-09-14 06:56] LABS: Alkaline Phosphatase 149 U/L (46-116); Aspartate Aminotransferase < 8 U/L (13-40)
[2024-09-14] MEDS: LISINOPRIL 20 MG TAB PO SCH (09:44)
[2024-09-14] MEDS: ASPirin 81 mg TAB PO SCH (09:45)
--- NOTE | 2024-09-14 13:33 | DVHPN2 ---
Consult Progress Note Subjective Patient reports: No new complaints Other Systems: Denies current or overnight cardiac symptoms of chest pain, palpitation, shortness of breath, diaphoresis, lightheadedness. Objective vital signs Vital Sign Date Time Temp Pulse Resp B/P (MAP) Pulse Ox O2 Delivery O2 Flow Rate FiO2 09/14/24 09:44 153/96 09/14/24 09:00 98.1 88 17 98 98.1 09/14/24 08:00 Room Air* 0 21 Total Intake and Output 09/13/24 09/13/24 09/14/24 15:00 23:00 07:00 Intake Total 300 ml Output Total 400 ml Balance -100 ml medications Current Medications Medications Dose Ordered Sig/Gemma Route Start Time Stop Time Status Last Admin Dose Admin Ondansetron HCl 4 mg Q4HP PRN IV 09/12/24 23:30 Acetaminophen 650 mg Q6HP PRN PO 09/12/24 23:30 Morphine Sulfate 2 mg Q4HPRN PRN IV 09/12/24 23:30 Nitroglycerin 0.4 mg Q5MINP PRN SL 09/12/24 23:30 Morphine Sulfate 2 mg Q30M PRN IV 09/12/24 23:30 Ergocalciferol 50,000 unit Q7D PO 09/12/24 23:45 09/13/24 00:30 50,000 UNIT Atorvastatin Calcium 40 mg DAILY@DINNER PO 09/13/24 17:30 09/13/24 18:37 40 MG Diagnostic Test (Pha) 1 strip IQ4HR 09/13/24 12:00 09/14/24 11:22 1 STRIP Insulin Human Regular IQ4HR SC 09/13/24 12:00 09/14/24 11:27 6 UNITS Dextrose 50 ml UD PRN IV 09/13/24 12:00 Insulin Glargine 18 units QAM SC 09/14/24 07:00 Gabapentin 300 mg TID PO 09/13/24 22:00 09/14/24 05:00 300 MG Lisinopril 20 mg DAILY PO 09/14/24 10:00 09/14/24 09:44 20 MG Aspirin 81 mg DAILY PO 09/14/24 10:00 09/14/24 09:45 81 MG Examination: CVS:Normal (Telemetry consistent with sinus rhythm at 81 beats per minute.) laboratory and microbiology Laboratory Tests 09/14/24 05:23 Test 09/14/24 05:23 Range/Units Serum Glucose 224 H 74-106 mg/dL Problem List/Assessment/Plan Problem List/Assessment/Plan * Chest Pain - troponins negative. EKG negative for acute ischemic changes. Continue on aspirin and statin. Follow up echo. Due to comorbidities recommend ischemic workup with coronary angiogram, we will plan for Sunday. * Hx HTN - stable, continue trending. * HLD - statin * Uncontrolled DM - management per primary team * Toabcco use - counseled and strongly advised cessation of use * Hypokalemia - monitoring replace electrolytes Case Discussed with Dr Pierce. Chest pain, rule out ACS. Troponin negative. Follow-up echo shows normal EF 60%, no significant valvular structural abnormalities noted. Recommend cardiac catheterization +/- PCI. All risks, benefits, and alternatives of cardiac catheterization explained to the patient including the risk of stroke, ID, , coronary perforation, pericardial tamponade, contrast induced nephropathy, need for emergent CABG, mechanical support, mechanical ventilation, and bleeding from vascular complications from the procedure. Patient is agreeable to proceed with procedure. Continue aspirin and statin. NPO after midnight. Critical care, time spent: 37 minutes This medical document was created using an electronic medical record system with voice recognition software and computerized dictation system. Although this document has been carefully reviewed, there might still be some phonetic and typographical errors. Occasional wrong-word or ``sound-alike substitutions may have occurred due to the inherent limitations of voice recognition software. These areas are purely typographical due to imperfections of the software programs and do not reflect any compromise in the patient's medical care. Please read the chart carefully and recognize, using context, where these substitutions have occurred. Plan discussed with: Patient Date of Service: Sep 14, 2024 Billing Provider: GETACHEW PIERCE MD Common Visit Codes: [id number] INP/OBS CARE(HIGH) [facility] Sep 14, 2024 13:33
--- NOTE | 2024-09-14 16:03 | DVHPNRES ---
Progress Note Date Seen: Sep 14, 2024 Resident Creating Document: WANDER MERCER RESIDENT Medical Necessity Reason Pt with a Central, PICC or Fol: No Subjective Review of Systems Patient seen and examined at the bedside. Alert and oriented x4. At the time of examination patient denies chest pain, palpitations, shortness of breath. Patient will be NPO tonight after midnight, left heart catheterization will be performed tomorrow morning. Objective vital signs Vital Sign Date Time Temp Pulse Resp B/P (MAP) Pulse Ox O2 Delivery O2 Flow Rate FiO2 09/14/24 13:00 98.1 94 17 92/65 (74) 98 98.1 09/14/24 08:00 Room Air* 0 21 Total Intake and Output 09/13/24 09/13/24 09/14/24 15:00 23:00 07:00 Intake Total 300 ml Output Total 400 ml Balance -100 ml medications Current Medications Medications Dose Ordered Sig/Gemma Route Start Time Stop Time Status Last Admin Dose Admin Ondansetron HCl 4 mg Q4HP PRN IV 09/12/24 23:30 Acetaminophen 650 mg Q6HP PRN PO 09/12/24 23:30 Morphine Sulfate 2 mg Q4HPRN PRN IV 09/12/24 23:30 Nitroglycerin 0.4 mg Q5MINP PRN SL 09/12/24 23:30 Morphine Sulfate 2 mg Q30M PRN IV 09/12/24 23:30 Ergocalciferol 50,000 unit Q7D PO 09/12/24 23:45 09/13/24 00:30 50,000 UNIT Atorvastatin Calcium 40 mg DAILY@DINNER PO 09/13/24 17:30 09/13/24 18:37 40 MG Diagnostic Test (Pha) 1 strip IQ4HR 09/13/24 12:00 09/14/24 11:22 1 STRIP Insulin Human Regular IQ4HR SC 09/13/24 12:00 09/14/24 11:27 6 UNITS Dextrose 50 ml UD PRN IV 09/13/24 12:00 Insulin Glargine 18 units QAM SC 09/14/24 07:00 Gabapentin 300 mg TID PO 09/13/24 22:00 09/14/24 13:51 300 MG Lisinopril 20 mg DAILY PO 09/14/24 10:00 09/14/24 09:44 20 MG Aspirin 81 mg DAILY PO 09/14/24 10:00 09/14/24 09:45 81 MG Examination General: Awake, alert, comfortable appearing, in no acute distress. HEENT: Head is normocephalic and atraumatic. Pupils are equal, round, and reactive to light. Extraocular muscles are intact. No nasal discharge. No facial trauma. Intraoral exam shows moist mucous membranes with no tonsillar enlargement or exudate. Neck: Supple with no cervical lymphadenopathy No meningismus. No goiter. Heart: Regular rate without murmur, rub, or gallop. Lungs: Equal breath sounds bilaterally with no wheezing, rales, or rhonchi. There is no chest wall tenderness or instability. Abdomen: No external sign of injury. Bowel sounds are present. Abdomen is soft, nontender. No rebound, no guarding, no rigidity. There are no palpable masses. There is no flank pain on exam. Extremities: Strong peripheral pulses. There is no clubbing, no cyanosis, and no edema. Skin: No rash. Neurologic: Cranial nerves II-XII intact without motor, sensory, or cerebellar deficit, no asterixis. laboratory and microbiology Laboratory Tests 09/14/24 05:23 Test 09/14/24 05:23 Range/Units Serum Glucose 224 H 74-106 mg/dL Labs and/or images reviewed: Labs reviewed by me, Image(s) reviewed by me Problem List/Assessment/Plan Problem List/Assessment/Plan # Acute chest pain- Typical chest pain ?Unstable angina - 12 lead EKG showed partial LBBB, with no acute ischemic change - troponin negative - echo report shows ejection fraction of 60% - high risk factors like uncontrolled T2DM, smoking, immobility - cardiology consulted with Dr. Pierce who recommended patient may benefit from a coronary angiogram given typical chest pain and high-risk factors. - echocardiogram showed LVEF 60%, grade 1 diastolic dysfunction. - coronary angiogram to be done on Sunday09/15/24 - on aspirin 81 mg and atorvastatin 40 mg daily - nitroglycerin p.r.n. for chest pain # uncontrolled type 2 diabetes mellitus with hyperglycemia - insulin Lantus 18 units once daily - moderate insulin sliding scale q.4 hours - goal blood glucose level 140-180 mg/dL # hypertensive heart disease - on lisinopril 20 mg once daily # peripheral neuropathy - on gabapentin 300 mg t.i.d. # mild anemia likely due to iron-deficiency - hemoglobin 10.7 - iron panel showed low iron and ferritin #Tobacco use disorder Counseled on cessation Plan discussed with Plan discussed with: Patient, Other (RN) My Orders My Orders Orders - WANDER MERCER RESIDENT Procedure Category Date Status Time * Cashier Receptionist CONS 09/14/24 Transmitted Consult Basic Metabolic Panel LAB 09/15/24 Verified 04:00 Addendum Addendum Addendum I was physically present for the sandoval portions of the service provided to patient by THE RESIDENT. I have reviewed the documentation, discussed the case with resident and agree with the resident's documentation except as noted. Also the patient's clinical case was discussed with the patient's nurse. This medical document was created using an electronic medical record system with computerized dictation system. Although this document has been carefully reviewed, there might still be some phonetic and typographical errors. These areas are purely typographical due to imperfections of the software programs, and do not reflect any compromise in the patient's medical care. Late signature. Date of Service: Sep 14, 2024 Billing Provider: EUN RIVAS MD Common Visit Codes: [id number] INP/OBS CARE(HIGH) WANDER MERCER RESIDENT Sep 14, 2024 16:03 EUN RIVAS MD Sep 15, 2024 11:22
[2024-09-15] VITALS (10 sets, daily range): BP systolic 75–127; BP diastolic 30–88; PULSE 72–89; RESP 12–18; TEMP 97.5–98.6; O2SAT 95–100
[2024-09-15 06:25] LABS: Anion Gap 4 (5-15); Carbon Dioxide 28 mmol/L (20-31); Chloride 105 mmol/L (98-107); Potassium 4.4 mmol/L (3.5-5.1); Sodium 137 mmol/L (136-145)
[2024-09-15 06:26] LABS: Calcium 9.3 mg/dL (8.7-10.4)
[2024-09-15 06:32] LABS: Blood Urea Nitrogen 18 mg/dL (9-23)
[2024-09-15 06:41] LABS: Glucose 161 mg/dL (74-106)
[2024-09-15 09:27] LABS: Hepatitis B Surface Antigen Negative (Negative)
[2024-09-15 09:49] LABS: Hepatitis C Antibody Negative (Negative)
[2024-09-15] MEDS ORDERED: HEPARIN IN NS 1000Units/500mL 1,500 ML ONE (11:56)
[2024-09-15] MEDS ORDERED: IODIXANOL 320MG/ML 100ML BTL IV ONE (11:56)
[2024-09-15] MEDS ORDERED: fentaNYL CITRATE 100 MCG/2 ML VL ONE (13:11)
[2024-09-15] MEDS ORDERED: ANGIOMAX 250 MG VIAL IV ONE (13:11)
[2024-09-15] MEDS ORDERED: HEPARIN SODIUM (PORCINE) 5000 UNITS/ML 1ML VIAL ONE (13:11)
[2024-09-15] MEDS ORDERED: VERAPAMIL 2.5MG/ML INJ 2ML VIAL IV ONE (13:11)
[2024-09-15] MEDS ORDERED: MIDAZOLAM HCL 2MG/2ML 2ml VIAL (1mg/ml) ONE (13:11)
[2024-09-15] MEDS ORDERED: SODIUM CHL 0.9% 50 ML ONE (13:12)
[2024-09-15] MEDS ORDERED: LIDOCAINE 2%HCL (LOCAL ANESTH.) INJ 20ML MDV ONE (13:12)
[2024-09-15] MEDS ORDERED: CLOPIDOGREL BISULFATE 75 MG TAB ONE (13:58)
--- NOTE | 2024-09-15 14:32 | DVHOP2 ---
Operative Report -Cardiology Report Details Date: 09/15/24 Preop Diagnosis: Non ST-elevation myocardial infarction. Postop Diagnosis: Coronary angiography revealed sluggish flow to all three-vessel is involving the left system. There is an ostial diagonal 75% stenosis in the small vessels which left for medical therapy. There is chronic total occlusion of the right coronary artery with a all the collateral from the left system. Attempted PTCA to the chronically occluded right coronary artery is failed. Patient will be better treated with a aggressive medical therapy at this point in time. Surgeon: Dre Pierce MD Anesthesiologist: Conscious sedation using25 mcg of fentanyl as well as a mg IV midazolam. It was given under my direct supervision in the presence of nurses. The patient total monitored time was 45 minutes without obvious complication. Anesthesia: Local Consent: The patient was informed of the risks and benefits of the procedure. These i nclude but are not limited to complications of anesthesia, postoperative infection, incomplete relief of symptoms, recurrence of symptoms, damage to blood vessels, nerves and tendons, deep venous thrombosis, pulmonary embolism and possible need for repeat surgery in the future. Indications for Surgery: 54-year-old male with PMH for HTN, poorly-controlled DM, lumbar spinal stenosis, tobacco use, presents to the hospital with chest pain. Patient states he got into argument with neighbor at home and started to have increased retrosternal chest pain sharp/pressure in nature, radiating to left side, that was constant, associated with shortness of breath and finally subsided when he was more calm. Patient denies ever having any previous cardiac symptoms of chest pain, palpitation, shortness of breath in the past. Upon evaluation in the ER patient noted to be hypotensive with BP of 88/61. Glucose 379. Troponin trending negative x3. Negative proBNP. Name of Procedure Performed 1. Left heart catheterization with left ventricular end-diastolic pressure measurement. 2. Selective right and left coronary angiography utilizing right transradial approach. 3. Conscious sedation using25 mcg of fentanyl as well as a mg IV midazolam. 4. Attempted PTCA to right coronary artery chronic occlusion is failed due to inability to cross the distal cap of the lesion. Procedure Details Procedure Details: Procedure note and vascular access: After informed consent was obtained, risks, benefits, complications, and alternatives were discussed in details with the patient who agrees to have the procedure done. At the beginning of the procedure, the right wrist and the right groin area were prepped and draped in the regular sterile fashion. Patient received total of 2 cc of 1% xylocaine to the right wrist area before a six Micronesian sheath was used using modified Seldinger technique. Patient also received conscious sedation during the procedure. At the beginning of the procedure, a cocktail of 2.5 mg of verapamil as well as 100 mcg of nitroglycerin were given intra-arterial to prevent vasospasm. A diagnostic tiger as well as the J-tip wire were used to cross the aortic valve and measured left ventricular end-diastolic pressure. Before a Danny right guiding catheter was used to engage right coronary system for attempted PTCA to chronically occluded mid RCA lesion. Findings were as follows: 1. Left heart catheterization with left ventricular end-diastolic pressure measurement: With the help of a tiger five Micronesian catheter as well as a J-tip wire we were able to cross the aortic valve and measured left ventricular end-diastolic pressure which was low at 7 mm of mercury. There was no significant gradient across the aortic valve on the pullback. 2. Selective right and left coronary angiography utilizing right transradial approach: 1. Right coronary artery comes off the right coronary cusp, it has diffuse long lesion proximal to mid segment at 80% followed by a chronic total occlusion after the mid segment followed by a 2nd occlusion distally. There is collateral from the left to right coronary system via the left circumflex system. 2. The left main comes off the left coronary cusp it is widely patent it bifurcates distally into large left anterior descending artery and medium-sized left circumflex vessel. Left main has no significant stenosis. 3. The left anterior descending artery is a large with a transapical course, it gives rise to a medium-sized 1st diagonal branch of the ostium of the diagonal branch there is an ostial 75% stenosis. 4. The left circumflex artery bifurcates into large 1st and 2nd obtuse marginal branches both of which has mild irregularity but no significant stenosis. 3. Attempted PTCA to chronically occluded right coronary artery: The diagnostic catheter was exchanged for a guiding catheter, it was a Danny right four, six Micronesian system, and a C-arm blue wire was used to traverse the lesion, despite multiple attempts to pass the wire through the distal cap we could not achieve crossing. Procedure omitted, and patient received a loading dose of 100 Plavix as well as 162 of aspirin. But this point in time patient denies any chest pain. Impression and plan: 1. Non ST-elevation myocardial infarction secondary to likely acute on chronic right coronary artery occlusion attempted PTCA failed due to we will organize the calcific lesion of the distal part of the right coronary artery. His medical therapy was warranted. 2. Patient would need aggressive medical therapy including diabetes control, hyperlipidemia with the LDL target of less than 50 with a moderate to high intensity statins. 3. Patient would need an echocardiogram to assess left ventricular ejection fraction and proceed with goal-directed therapy as needed. Condition Good [facility] Clinical Frailty Scale [facility] Clinical Frailty Scale: Managing Well Dominance Dominance: Right HELLEN HELLEN Flow: Post- Intervention (HELLEN-0), Pre-Intervention (HELLEN-0) Lesion Residual Stenosis post procedu: Other Disposition DRE PIERCE MD Sep 15, 2024 14:32
[2024-09-15] MEDS ORDERED: ASPI-325 PO (16:52)
[2024-09-15] MEDS ORDERED: ATOR20TA50 PO (16:52)
[2024-09-15] MEDS ORDERED: METO25TA93 PO (16:52)
[2024-09-15] MEDS ORDERED: CLOP75TA28 PO (16:52)
--- NOTE | 2024-09-15 17:38 | DVHPN2 ---
Consult Progress Note Date Seen: Sep 15, 2024 Subjective Review of Systems: CVS:Normal, RESPIRATORY:Normal, NEURO:Normal Objective vital signs Vital Sign Date Time Temp Pulse Resp B/P (MAP) Pulse Ox O2 Delivery O2 Flow Rate FiO2 09/15/24 17:10 97.5 83 17 106/65 (79) 100 97.5 09/15/24 08:00 Room Air* 0 21 Total Intake and Output 09/14/24 09/14/24 09/15/24 15:00 23:00 07:00 Intake Total 750 ml 480 ml Output Total 500 ml Balance 750 ml 480 ml -500 ml medications Current Medications Medications Dose Ordered Sig/Gemma Route Start Time Stop Time Status Last Admin Dose Admin Ondansetron HCl 4 mg Q4HP PRN IV 09/12/24 23:30 Acetaminophen 650 mg Q6HP PRN PO 09/12/24 23:30 Morphine Sulfate 2 mg Q4HPRN PRN IV 09/12/24 23:30 Nitroglycerin 0.4 mg Q5MINP PRN SL 09/12/24 23:30 Morphine Sulfate 2 mg Q30M PRN IV 09/12/24 23:30 Ergocalciferol 50,000 unit Q7D PO 09/12/24 23:45 09/13/24 00:30 50,000 UNIT Atorvastatin Calcium 40 mg DAILY@DINNER PO 09/13/24 17:30 09/14/24 16:40 40 MG Diagnostic Test (Pha) 1 strip IQ4HR 09/13/24 12:00 09/15/24 03:45 1 STRIP Insulin Human Regular IQ4HR SC 09/13/24 12:00 09/14/24 23:48 9 UNITS Dextrose 50 ml UD PRN IV 09/13/24 12:00 Insulin Glargine 18 units QAM SC 09/14/24 07:00 Gabapentin 300 mg TID PO 09/13/24 22:00 09/14/24 20:37 300 MG Lisinopril 20 mg DAILY PO 09/14/24 10:00 09/14/24 09:44 20 MG Aspirin 81 mg DAILY PO 09/14/24 10:00 09/14/24 09:45 81 MG Examination: LUNGS:Normal, CVS:Normal, NEURO:Normal laboratory and microbiology Laboratory Tests 09/15/24 05:11 09/14/24 05:23 Test 09/15/24 05:11 Range/Units Serum Glucose 161 H 74-106 mg/dL Problem List/Assessment/Plan Problem List/Assessment/Plan (Dr. Shoemaker) * Chest Pain s/p [facility] with [employer]IPMENT [employer]CH[employer]IC of the RCA and ostial diagonal with 75% stenosis * Continue DAPT, lipid-lowering agent, and BB. * Counseled on Mediterranean diet, medical compliance * Hx HTN - stable, continue trending. * HLD - statin * Uncontrolled DM, HgbA1C 10.9 - management per primary team. Tight glycemic control. * Toabcco use - counseled and strongly advised cessation of use * Hypokalemia - monitoring replace electrolytes Coronary artery disease with acute on chronic right coronary artery occlusion attempted PTCA failed due to we will organize the calcific lesion of the distal part of the right coronary artery. Patient would need aggressive medical therapy including diabetes control, hyperlipidemia with the LDL target of less than 50 with a moderate to high intensity statins. Transthoracic echocardiogram revealed left ventricular ejection fraction of 60%. There is no further cardiac work-up indicated at this time. Kindly call in need to re-consult. This medical document was created using an electronic medical record system with voice recognition software and computerized dictation system. Although this document has been carefully reviewed, there might still be some phonetic and typographical errors. Occasional wrong-word or ``sound-alike substitutions may have occurred due to the inherent limitations of voice recognition software. These areas are purely typographical due to imperfections of the software programs and do not reflect any compromise in the patient's medical care. Please read the chart carefully and recognize, using context, where these substitutions have occurred. Plan discussed with: Patient, Other Dietary Evaluation Review Comments: 1) Consider a CCHO 60g diet 2) Consider APURVA 1 pkt BID 3) Continue current plan of care Expected Outcomes/Goals: F/U in 3-5 days Date of Service: Sep 15, 2024 Billing Provider: GETACHEW SHOEMAKER MD Cardiology Common Codes: 05724-HTK/OBS SAME DATE (Mod) NESSA CALLAHAN SKEIN BANDER Sep 15, 2024 17:38
--- NOTE | 2024-09-15 19:10 | DVHDSRES ---
Discharge Summary Date of Admission Resident Creating Document: HORACIO CARRINGTON RESIDENT Sep 12, 2024 at 23:25 Date of Discharge: Sep 15, 2024 Admitting Diagnosis #Acute chest pain likely noncardiac, underlying coronary artery disease can not be ruled out given risk factors, HELLEN score 1 point, ASCVD 20 25%(high-risk due to diabetes and hypertension) HEART score 4 points #?Stress related or musculoskeletal chest pain #Hypokalemia 3.3 #Uncontrolled type 2 diabetes, glucose level at admission 379 mg/dL #History of amputation of the right hallux #Lumbar spinal stenosis #Essential Hypertension stage I, BP 139/101 mm Hg #History of wheelchair-bound, currently uses a walker #Hypochromic normocytic anemia #Psychosocial support Wounds: no wounds Labs/Diagnostic Data: Laboratory Results Test 09/15/24 08:44 09/15/24 05:11 09/14/24 05:23 09/13/24 21:00 POC Glucose 183 mg/dl (70-106) Sodium Level 137 mmol/L (136-145) Potassium Level 4.4 mmol/L (3.5-5.1) Chloride Level 105 mmol/L (98-107) Carbon Dioxide Level 28 mmol/L (20-31) Anion Gap 4 (5-15) Blood Urea Nitrogen 18 mg/dL (9-23) Creatinine 0.90 mg/dL (0.700-1.30) Glomerular Filtration Rate Calc 101 mL/min (>90) BUN/Creatinine Ratio 20.0 (10.0-20.0) Serum Glucose 161 mg/dL (74-106) Calcium Level 9.3 mg/dL (8.7-10.4) White Blood Count 7.3 10^3/uL (4.4-10.8) Red Blood Count 4.03 10^6/uL (4.5-5.90) Hemoglobin 11.3 g/dL (13.5-17.5) Hematocrit 34.6 % (41.0-53.0) Mean Corpuscular Volume 85.9 fL (80.0-100.0) Mean Corpuscular Hemoglobin 28.2 pg (28.0-32.0) Mean Corpuscular Hemoglobin Concent 32.8 g/dL (32.0-36.0) Red Cell Distribution Width 14.9 % (11.8-14.3) Platelet Count 409 10^3/uL (140-450) Mean Platelet Volume 7.3 fL (6.9-10.8) Neutrophils (%) (Auto) 73.0 % (37.0-80.0) Lymphocytes (%) (Auto) 15.8 % (10.0-50.0) Monocytes (%) (Auto) 9.7 % (0.0-12.0) Eosinophils (%) (Auto) 1.2 % (0.0-7.0) Basophils (%) (Auto) 0.3 % (0.0-2.0) Neutrophils # (Auto) 5.3 10 ^3/uL (1.6-8.6) Lymphocytes # (Auto) 1.1 10 ^3/uL (0.4-5.4) Monocytes # (Auto) 0.7 10 ^3/uL (0-1.3) Eosinophils # (Auto) 0.1 10 ^3/uL (0-0.8) Basophils # (Auto) 0 10 ^3/uL (0-0.2) Nucleated Red Blood Cells 0.0 % Magnesium Level 1.8 mg/dL (1.6-2.6) Total Bilirubin 0.5 mg/dL (0.2-1.0) Aspartate Amino Transferase (AST) < 8 U/L (13-40) Alanine Aminotransferase (ALT) 10 U/L (7-40) Alkaline Phosphatase 149 U/L (46-116) Total Protein 6.1 g/dL (5.7-8.2) Albumin 3.5 g/dL (3.2-4.8) Hepatitis B Surface Antigen Negative (Negative) Hepatitis C Antibody Negative (Negative) Test 09/13/24 06:30 09/12/24 21:38 09/12/24 20:39 09/12/24 20:30 Prothrombin Time 10.7 sec (9.3-11.8) Prothrombin Time INR 1.01 (0.9-1.15) Hemoglobin A1c 10.9 % A1C (<5.7) Iron Level 28 ug/dL (65-175) Total Iron Binding Capacity 299 ug/dL (250-425) Percent Iron Saturation 9.4 % (20-55) Ferritin 10.4 ng/mL (22-322) Thyroid Stimulating Hormone (TSH) 2.13 uIU/mL (0.55-4.78) Troponin I High Sensitivity 3 ng/L (</=54) Urine Color Light-yellow (Yellow) Urine Clarity Clear (Clear) Urine pH 6.0 (5.0-9.0) Urine Specific [place] 1.020 (1.001-1.035) Urine Protein Negative (Negative) Urine Ketones Negative (Negative) Urine Blood Negative /uL (Negative) Urine Nitrite Negative (Negative) Urine Bilirubin Negative (Negative) Urine Urobilinogen Normal mg/dL (Negative) Urine Leukocyte Esterase Negative /uL (Negative) Urine RBC None seen /hpf (0 - 3) Urine WBC None seen /hpf (0 - 3) Urine Squamous Epithelial Cells None seen /hpf (<5) Urine Bacteria None seen /hpf (None Seen) Urine Hyaline Casts Few /lpf (0 - 2) Urine Glucose 4+ mg/dL (Normal) Urine Opiates Screen Neg (NEGATIVE) Urine Fentanyl Screen Neg (NEGATIVE) Urine Barbiturates Screen Neg (NEGATIVE) Urine Phencyclidine Screen Neg (NEGATIVE) Urine Amphetamines Screen Neg (NEGATIVE) Urine Benzodiazepines Screen Neg (NEGATIVE) Urine Cocaine Screen Neg (NEGATIVE) Urine Cannabinoids Screen Neg (NEGATIVE) Test 09/12/24 18:50 09/12/24 18:27 Blood Gas Specimen Type Arterial Blood Gas Sample Site Left radial Blood Gas Patient Temperature 37.0 Arterial Blood Date Drawn [id number] Arterial Blood pH 7.418 (7.350-7.450) Arterial Blood Partial Pressure CO2 37.7 mmHg (35.0-48.0) Arterial Blood Partial Pressure O2 88.3 mmHg (83.0-108.0) Arterial Blood HCO3 23.8 mmol/L (21.0-28.0) Arterial Blood Oxygen Saturation 96.3 % (94.0-98.0) Arterial Blood Base Excess -0.5 mmol/L (-2.0-3.0) Arterial Blood Oxyhemoglobin 95.0 % (94.0-98.0) Arterial Blood Carboxyhemoglobin 1.0 % (0.5-1.5) Arterial Blood Methemoglobin 0.4 % (0.0-1.5) Freeman Test Yes Blood Gas Total Hemoglobin 11.10 g/dL (13.5-17.5) Blood Gas Liter Flow 3.00 Blood Gas Modality Nasal cannula FiO2 % 32.0 Activated Partial Thromboplast Time 25.3 SEC (24.5-34.5) B-Type Natriuretic Peptide 49.80 pg/mL (0-100) Beta-Hydroxybutyric Acid 0.130 mmol/L (< 0.4) Other Laboratory Tests 09/15/24 05:11 09/14/24 05:23 Brief Hx & Hospital Course: HPI Patient is a 54-year-old male with a past medical history as described below came to the ED with a chief complaint chest pain for a few hours prior to admission. Patient reported that 1 day prior to admission, patient reported t hat a person came to his house and had an argument after which the patient got anxious and started shivering and had chest pain which was substernal pressure- like, radiating to the left shoulder, associated with the shortness of breath and palpitations, denied nausea, vomiting, sweating, lasted for 10-15 mins and that relieved due in the EMS gave him tablet to put under his tongue. Patient has a history of lumbar stenosis with multiple level degenerative changes and since the past 1 year has not been able to walk and uses wheelchair to move around. The patient is wheelchair-bound due to chronic pain in the lower extremities . Imaging from previous admission revealed:-6 mm subcortical cyst in the right femoral hip (MRI from January 21), Multilevel degenerative changes in the lumbar spine with narrowing of the disc space and moderate to severe neural foraminal stenosis at L4-L5 and L5-S1( CT lumbar spine from January 17) Past medical history: Hypertension, type 2 diabetes mellitus, lumbar stenosis with multiple level degenerative changes, osteoarthritis, right femoral hip subcortical cyst, prior amputation of right hallux due to ulcer Past surgical history: Right great toe amputation Social history: Lives with family and reports occasional alcohol use, smokes a pack of cigarettes once a week has a history of 15 pack year. Home medications: Insulin lispro 4 units 3 times before meals and 24 units insulin Lantus once daily, lisinopril 20 mg daily, gabapentin 300 mg p.o. t.i.d. Hospital course In the ER. Twelve lead ECG was done which revealed sinus rhythm without evidence of acute ischemia, no ST segment changes. Troponin levels were within normal limits. Patient was started on aspirin and atorvastatin was continued on home medications with insulin Lantus and moderate insulin sliding scale with a goal blood glucose level in the hospital 140-180 mg/dL. Cardiology were consulted with Dr. Pierce, who recommended with the patient may benefit from a coronary angiogram. The procedure was done and reported right coronary artery occlusion at 80%, PTCA failed due to well organized calcific lesion of the distal part of the coronary artery despite multiple attempts to pass the wire through the distal, procedure was admitted and the patient received a loading dose of Plavix 100 mg and aspirin 162 mg, patient denied any chest pain. Patient was observed in the post cath was stable and was sent to [facility]. Patient was stable and denied any chest pain. Patient sent home in stable condition and was advised to follow up in the discharge clinic and in the cardiology Outpatient Clinic. Review of Systems Patient seen and examined at the bedside. Alert and oriented x4. At the time of examination patient denies chest pain, palpitations, shortness of breath. Physical Examination Gen - no pallor, no icterus, no cyanosis, no clubbing, no LAD, no edema . Skin - Patients skin is warm and dry. HEENT - normocephalic, atraumatic, moist mucous membranes. Neck - full ROM, no LAD, no JVD. Pulmonary - B/L vesicular breath sounds. no crackles , no wheezing, no stridor. cardiovascular - normal S1,S2 heard. no murmurs heard. peripheral pulses radial 2+, pedal 1+. capillary refill normal <2 secs. GI - soft abdomen without tenderness to palpation. no hepatosplenomegaly. Bowel sounds normoactive Neurological - Patient is A/O X 3. Bilateral upper extremity strength 5/5, bilateral lower extremity strength 3/5, no facial droop, normal speech, no tremor, decreased touch sensation in the bilateral lower extremities. Discharge plan Patient discharged in stable condition to home advised to follow up in the discharge clinic in 1 week and will be referred to the cardiology outpatient clinic in 2 weeks Medications prescribed: Aspirin 81 mg daily, clopidogrel 75 mg daily, atorvastatin 40 mg HS, metoprolol succinate 25 mg daily. . Lisinopril and continued on rest of the home medications Consults/Reason for consult Cardiology consultation for Acute chest pain Operations or Procedures Operative Report -Cardiology Report Details Date: 09/15/24 Preop Diagnosis: Non ST-elevation myocardial infarction. Postop Diagnosis: Coronary angiography revealed sluggish flow to all three-vessel is involving the left system. There is an ostial diagonal 75% stenosis in the small vessels which left for medical therapy. There is chronic total occlusion of the right coronary artery with a all the collateral from the left system. Attempted PTCA to the chronically occluded right coronary artery is failed. Patient will be better treated with a aggressive medical therapy at this point in time. Surgeon: Dre Pierce MD Anesthesiologist: Conscious sedation using25 mcg of fentanyl as well as a mg IV midazolam. It was given under my direct supervision in the presence of nurses. The patient total monitored time was 45 minutes without obvious complication. Anesthesia: Local Consent: The patient was informed of the risks and benefits of the procedure. These include but are not limited to complications of anesthesia, postoperative infection, incomplete relief of symptoms, recurrence of symptoms, damage to blood vessels, nerves and tendons, deep venous thrombosis, pulmonary embolism and possible need for repeat surgery in the future. Indications for Surgery: 54-year-old male with PMH for HTN, poorly-controlled DM, lumbar spinal stenosis, tobacco use, presents to the hospital with chest pain. Patient states he got into argument with neighbor at home and started to have increased retrosternal chest pain sharp/pressure in nature, radiating to left side, that was constant, associated with shortness of breath and finally subsided when he was more calm. Patient denies ever having any previous cardiac symptoms of chest pain, palpitation, shortness of breath in the past. Upon evaluation in the ER patient noted to be hypotensive with BP of 88/61. Glucose 379. Troponin trending negative x3. Negative proBNP. Name of Procedure Performed 1. Left heart catheterization with left ventricular end-diastolic pressure measurement. 2. Selective right and left coronary angiography utilizing right transradial approach. 3. Conscious sedation using25 mcg of fentanyl as well as a mg IV midazolam. 4. Attempted PTCA to right coronary artery chronic occlusion is failed due to inability to cross the distal cap of the lesion. Procedure Details Procedure Details: Procedure note and vascular access: After informed consent was obtained, risks, benefits, complications, and alternatives were discussed in details with the patient who agrees to have the procedure done. At the beginning of the procedure, the right wrist and the right groin area were prepped and draped in the regular sterile fashion. Patient received total of 2 cc of 1% xylocaine to the right wrist area before a six Ghanaian sheath was used using modified Seldinger technique. Patient also received conscious sedation during the procedure. At the beginning of the procedure, a cocktail of 2.5 mg of verapamil as well as 100 mcg of nitroglycerin were given intra-arterial to prevent vasospasm. A diagnostic tiger as well as the J-tip wire were used to cross the aortic valve and measured left ventricular end-diastolic pressure. Before a Danny right guiding catheter was used to engage right coronary system for attempted PTCA to chronically occluded mid RCA lesion. Findings were as follows: 1. Left heart catheterization with left ventricular end-diastolic pressure measurement: With the help of a tiger five Ghanaian catheter as well as a J-tip wire we were able to cross the aortic valve and measured left ventricular end-diastolic pressure which was low at 7 mm of mercury. There was no significant gradient across the aortic valve on the pullback. 2. Selective right and left coronary angiography utilizing right transradial approach: 1. Right coronary artery comes off the right coronary cusp, it has diffuse long lesion proximal to mid segment at 80% followed by a chronic total occlusion after the mid segment followed by a 2nd occlusion distally. There is collateral from the left to right coronary system via the left circumflex system. 2. The left main comes off the left coronary cusp it is widely patent it bifurcates distally into large left anterior descending artery and medium-sized left circumflex vessel. Left main has no significant stenosis. 3. The left anterior descending artery is a large with a transapical course, it gives rise to a medium-sized 1st diagonal branch of the ostium of the diagonal branch there is an ostial 75% stenosis. 4. The left circumflex artery bifurcates into large 1st and 2nd obtuse marginal branches both of which has mild irregularity but no significant stenosis. 3. Attempted PTCA to chronically occluded right coronary artery: The diagnostic catheter was exchanged for a guiding catheter, it was a Danny right four, six Ghanaian system, and a C-arm blue wire was used to traverse the lesion, despite multiple attempts to pass the wire through the distal cap we could not achieve crossing. Procedure omitted, and patient received a loading dose of 100 Plavix as well as 162 of aspirin. But this point in time patient denies any chest pain. Impression and plan: 1. Non ST-elevation myocardial infarction secondary to likely acute on chronic right coronary artery occlusion attempted PTCA failed due to we will organize the calcific lesion of the distal part of the right coronary artery. His medical therapy was warranted. 2. Patient would need aggressive medical therapy including diabetes control, hyperlipidemia with the LDL target of less than 50 with a moderate to high intensity statins. 3. Patient would need an echocardiogram to assess left ventricular ejection fraction and proceed with goal-directed therapy as needed. Condition at Discharge: Good Final Diagnosis/Problems List # Acute chest pain- Typical chest pain , ?unstable angina # NSTEMI # uncontrolled type 2 diabetes mellitus with hyperglycemia # hypertensive heart disease # peripheral neuropathy # mild anemia likely due to iron-deficiency #Tobacco use disorder Discharge Disposition: Home Discharge Instruct/Medications Diet: Cardiac 2g Na,low cholest Activity: No Restrictions, As Tolerated Follow Up/Referral: Follow up in the discharge clinic in one week Follow up in the outpatient cardiology clinic in 2-4 weeks Medications: as per EMR Discharge Statement: "Patient was advised to return to the ER or call 911 if any headaches, dizziness, shortness of breath, chest pain, abdominal pain, bleeding, fevers, or worsening of medical condition. Patient was counseled about treatment plan, medications, possible side effects, patientverbalized understanding. All questions were answered to the best of my ability. This discharge took greater then 30 minutes in planning, reviewing documentation, counseling the patient, and discussing with other team members." ASSESSMENT ASSESSMENT Assessment # Acute chest pain- Typical chest pain , ?unstable angina # NSTEMI # uncontrolled type 2 diabetes mellitus with hyperglycemia # hypertensive heart disease # peripheral neuropathy # mild anemia likely due to iron-deficiency #Tobacco use disorder Date of Service: Sep 15, 2024 Billing Provider: JANET MACEDO MD Common Visit Codes: 07200-ADS/OBS DISCH DAY >30min HORACIO CARRINGTON RESIDENT Sep 15, 2024 19:10 JANET MACEDO MD Sep 17, 2024 10:30
== END 2024-09-15 17:05 | disposition home or self-care (01) | DRG 190 ==
LOC: EDBD 18:00 → ER 18:00 → TELE 23:25 → TELE-WESTW 09-13 16:20
PROVIDERS: ADMIT Student in an Organized Health Care Education/Training Program; ATTEND Student in an Organized Health Care Education/Training Program
PROC: 4A023N7 Measurement of Cardiac Sampling and Pressure, Left Heart, Percutaneous Approach (ICD-10-PCS; principal; 2024-09-15)
PROC: B211YZZ Fluoroscopy of Multiple Coronary Arteries using Other Contrast (ICD-10-PCS; 2024-09-15)
DX: I21.4 Non-ST elevation (NSTEMI) myocardial infarction (principal); E44.0 Moderate protein-calorie malnutrition; E11.42 Type 2 diabetes mellitus with diabetic polyneuropathy; I95.9 Hypotension, unspecified; E11.65 Type 2 diabetes mellitus with hyperglycemia; I11.9 Hypertensive heart disease without heart failure; D50.9 Iron deficiency anemia, unspecified; E78.5 Hyperlipidemia, unspecified; E87.6 Hypokalemia; G89.29 Other chronic pain; F17.210 Nicotine dependence, cigarettes, uncomplicated; I25.110 Atherosclerotic heart disease of native coronary artery with unstable angina pectoris; Z79.899 Other long term (current) drug therapy; Z68.1 Body mass index [BMI] 19.9 or less, adult
CPT/HCPCS: 36415; 36600; 71045; 80048; 80053; 80307; 81001; 82010; 82728; 82805; 82962; 83036; 83540; 83550; 83735; 83880; 84443; 84484; 85025; 85610; 85730; 86803; 86850; 86900; 86901; 87340; 93005; 93306; 93458; 97163; 99152; G0378; J1815; J2250; Q9967

== ENCOUNTER 2024-11-01 22:33 | Inpatient (IN) | payer MEDICAID ==
[~2024-11-01] VITALS: Ht 152.4 cm; Wt 58.7 kg
[2024-11-01] MEDS: CEFEPIME 2GM/50ML NS 50 ML IV ONE (04:26)
[~2024-11-01 22:33] MED LIST changes: +ASPI-325 PO; +ATOR20TA50 PO; -CIPR-214 PO; -CLIN-203 PO; +CLOP75TA28 PO; +GABA-1250 PO; +HYDR-4902 PO; -LISI20TA56 PO; +METO25TA93 PO; +NIC21P TOP; +OMEP-434 PO
[2024-11-01] MEDS: ONDANSETRON HCL 4 MG/2 ML VIAL IV ONE (23:15)
--- NOTE | 2024-11-01 23:18 | ED.PDOC ---
History of Present Illness(SKN HPI Comments 54-year-old male came to emergency room for wound check. Patient is homeless, has history of hypertension and diabetes, status post amputation of right great toe. He is wheelchair bound. Patient claims he started developing ulcerations/ blisters/ rashes just yesterday. Noted ulcerations on his right foot, forehead and penile head. Denies any fever. Chief Complaint: Wound Check Time Seen by MD: 23:17 Primary Care Provider: NONE History of Present Illness: Nurses Notes Allergies: Coded Allergies: NO KNOWN ALLERGIES (Unverified , 01/07/24) Home Meds Active Scripts Metoprolol Succinate (Metoprolol Succinate Er) 25 Mg Tab, 1 TAB PO DAILY for 30 Days, #30 TAB 1 Refill Prov:WANDER MERCER RESIDENT 09/15/24 Clopidogrel Bisulfate (Plavix) 75 Mg Tab, 1 TAB PO DAILY for 30 Days, #30 TAB 2 Refills Prov:WANDER MERCER RESIDENT 09/15/24 Atorvastatin Calcium (ATORVASTATIN CALCIUM) 20 Mg Tab, 40 MG PO DAILY@DINNER for 30 Days, #60 TAB 1 Refill Prov:WANDER MERCER RESIDENT 09/15/24 Aspirin (Aspirin Low Dose) 81 Mg Tab, 81 MG PO DAILY for 30 Days, #30 TAB 1 Refill Prov:WANDER MERCER RESIDENT 09/15/24 Ergocalciferol (VITAMIN D 29997 UNIT) 50,000 [place], [address] UNIT PO ONCE A WEEK, #6 CAP Prov:JOSH TORREZ RESIDENT 01/08/24 Reported Medications Hydrocodone-Acetaminophen (Hydrocodone Bitartrate/AC 5-325 mg) 1 Tab Tab, 1 TAB PO, TAB 09/13/24 Gabapentin (Gabapentin) 300 Mg Cap, 300 MG PO TID for 30 Days, MG 09/13/24 Nicotine (Nicoderm 21MG/24HR) 1 Patch Ph, 1 PATCH TOP DAILY, #28 PATCH 1 Refill 09/13/24 Omeprazole Magnesium (Omeprazole) 20 Mg Tab, 20 MG PO, TAB 09/13/24 Insulin Glargine-Yfgn (Insulin Glargine) 100 Unit/Ml Inj, 100 UNIT SC for DIABETES, INJ 01/19/24 Insulin Lispro (Humalog Kwikpen) 100 Unit/Ml Inj, 100 UNIT SC for DIABETES, INJ 01/19/24 Information Source: Patient Mode of Arrival: Wheelchair Severity: Moderate Timing: Days Duration: Since onset Prehospital treatment: None Location: Extremities (right foot), Face, Pelvis (penis) Mechanism: Spontaneous Onset Developed: Generalized erythema, Rash Associated Signs and Symptoms: Redness, Swelling Past Medical History PAST MEDICAL HISTORY: DM, HTN Past Medical History (Other): Wheelchair-bound Surgical History: Appendectomy, Denies all surgeries Surgical History (Other): Amputation right great toe Family History Family History: Reviewed,noncontributory to illness Social History Smoker: Cigarettes Alcohol: Denies ETOH Use Drugs: Denies Drug Use Lives In: Homeless Constitutional: denies: chills, diaphoresis, fatigue, fever, malaise, sweats, weakness, others EENTM: denies: blurred vision, double vision, ear bleeding, ear discharge, ear drainage, ear pain, ear ringing, eye pain, eye redness, hearing loss, mouth pain, mouth swelling, nasal discharge, nose bleeding, nose congestion, nose pain, photophobia, tearing, throat pain, throat swelling, voice changes, others Respiratory: denies: cough, hemoptysis, orthopnea, SOB at rest, shortness of breath, SOB with excertion, stridor, wheezing, others Cardiovascular: denies: chest pain, dizzy spells, diaphoresis, Dyspnea on exertion, edema, irregular heart beat, left arm pain, lightheadedness, palpitations, PND, syncope, others Gastrointestinal: denies: abdomen distended, abdominal pain, blood streaked bowels, constipated, diarrhea, dysphagia, difficulty swallowing, hematemesis, melena, nausea, poor appetite, poor fluid intake, rectal bleeding, rectal pain, vomiting, others Genitourinary: denies: burning, dysuria, flank pain, frequency, hematuria, incontinence, penile discharge, penile sore, pain, testicle pain, testicle s welling, urgency, others Musculoskeletal: denies: back pain, gout, joint pain, joint swelling, muscle pain, muscle stiffness, neck pain, others Integumetry: reports: wounds (Right foot, penis, forehead); denies: bruises, change in color, change in hair/nails, dryness, laceration, lesions, lumps, rash, others Allergic/Immunocompromised: denies: Difficulty Healing, Frequent Infections, Hives, Itching, others Hematologic/Lymphatic: denies: anemia, blood clots, easy bleeding, easy bruising, swollen glands, others Endocrine: denies: excessive hunger, excessive sweating, excessive thirst, excessive urination, flushing, intolerance to cold, intolerance to heat, unexplained weight gain, unexplained weight loss, others Psychiatric: denies: anxiety, bipolar disorder, depression, hopeless, panic disorder, schizophrenia, sleepless, suicidal, others Physical Exam General Appearance: No Apparent Distress, Normal HEENT: Normal ENT Inspection, Pharynx Normal, TMs Normal Neck: Full Range of Motion, Non-Tender, Normal, Normal Inspection Respiratory: Chest Non-Tender, Lungs Clear, No Accessory Muscle Use, No Respiratory Distress, Normal Breath Sounds Cardiovascular: No Edema, No JVD, No Murmur, No Gallop, Normal Peripheral Pulses, Regular Rate/Rhythm Breast Exam: Deferred Gastrointestinal: No Organomegaly, Non Tender, No Pulsatile Mass, Normal Bowel Sounds, Soft Genitalia: Deferred Pelvic: Deferred Rectal: Deferred Extremities: No calf tenderness, Normal capillary refill, Normal inspection, Normal range of motion, Non-tender, No pedal edema Musculoskeletal : Apperance: Normal Neurologic: Alert, speech and language clinician II-XII nml as Tested, No Motor Deficits, Normal Affect, Normal Mood, No Sensory Deficits Cerebellar Function: Normal Reflexes: Normal Skin: Dry, Warm, Wounds (Ulceration/blisters at the right foot, penis and forehead) Lymphatic: No Adenopathy Was a procedure done? Was a procedure done?: No Differential Diagnosis (INTG) Differential Diagnosis: Abscess, Candidiasis, Cellulitis, Contact Dermatitis, Herpes Zoster/Simplex, Osteomyelitis Differential Diagnosis: Cellulitis Abscess: Abscess, Cellulitis X-Ray, Labs, Meds, VS Vital Signs Date Time Temp Pulse Resp B/P (MAP) Pulse Ox O2 Delivery O2 Flow Rate FiO2 11/02/24 00:47 99.6 11/01/24 23:13 97.4 100 14 105/74 (84) 99 Lab Test 11/01/24 23:29 Range/Units White Blood Count 9.4 4.4-10.8 10^3/uL Red Blood Count 4.42 L 4.5-5.90 10^6/uL Hemoglobin 11.8 L 13.5-17.5 g/dL Hematocrit 36.4 L 41.0-53.0 % Mean Corpuscular Volume 82.5 80.0-100.0 fL Mean Corpuscular Hemoglobin 26.8 L 28.0-32.0 pg Mean Corpuscular Hemoglobin Concent 32.5 32.0-36.0 g/dL Red Cell Distribution Width 16.4 H 11.8-14.3 % Platelet Count 392 140-450 10^3/uL Mean Platelet Volume 7.2 6.9-10.8 fL Neutrophils (%) (Auto) 78.9 37.0-80.0 % Lymphocytes (%) (Auto) 12.2 10.0-50.0 % Monocytes (%) (Auto) 8.0 0.0-12.0 % Eosinophils (%) (Auto) 0.5 0.0-7.0 % Basophils (%) (Auto) 0.4 0.0-2.0 % Neutrophils # (Auto) 7.4 1.6-8.6 10 ^3/uL Lymphocytes # (Auto) 1.1 0.4-5.4 10 ^3/uL Monocytes # (Auto) 0.8 0-1.3 10 ^3/uL Eosinophils # (Auto) 0.1 0-0.8 10 ^3/uL Basophils # (Auto) 0 0-0.2 10 ^3/uL Nucleated Red Blood Cells 0.0 % Sodium Level 138 136-145 mmol/L Potassium Level 3.1 L 3.5-5.1 mmol/L Chloride Level 104 98-107 mmol/L Carbon Dioxide Level 26 20-31 mmol/L Anion Gap 8 5-15 Blood Urea Nitrogen 10 9-23 mg/dL Creatinine 0.77 0.700-1.30 mg/dL Glomerular Filtration Rate Calc 106 >90 mL/min BUN/Creatinine Ratio 13.0 10.0-20.0 Serum Glucose 125 H 74-106 mg/dL Lactic Acid Level 3.1 *H 0.4-2.0 mmol/L Calcium Level 9.4 8.7-10.4 mg/dL Total Bilirubin 0.6 0.2-1.0 mg/dL Aspartate Amino Transferase (AST) 24 13-40 U/L Alanine Aminotransferase (ALT) 16 7-40 U/L Alkaline Phosphatase 205 H 46-116 U/L Troponin I High Sensitivity 3 L </=54 ng/L B-Type Natriuretic Peptide 15.89 0-100 pg/mL Total Protein 7.0 5.7-8.2 g/dL Albumin 4.1 3.2-4.8 g/dL Lipase 28 12-53 U/L Rapid Plasma Reagin Pending Current Medications Medications (Trade) Dose Ordered Sig/Gemma Route Start Time Stop Time Status Last Admin Sodium Chloride 1,000 ml @ 1,000 mls/hr Q1H ONCE IV 11/01/24 23:15 11/02/24 00:14 DC 11/02/24 00:46 Vancomycin HCl 200 ml @ 200 mls/hr ONCE ONCE IV 11/01/24 23:15 11/02/24 00:14 DC 11/02/24 00:46 Acetaminophen (Tylenol Tablet) 650 mg ONCE ONCE PO 11/01/24 23:15 11/01/24 23:16 DC 11/02/24 00:47 XY R FOOT 3 VIEW XRAY, INDICATION: ulcers TECHNICAL DATA: Frontal, oblique and lateral views were obtained of the right foot. COMPARISON: None Findings/ IMPRESSION: Status post amputation of the 1st digit. Amputation versus erosive changes of the 2nd digit distal phalanx. No acute fracture or dislocation. CHEST RADIOGRAPH Indication: weakness Technique: Single frontal view of the chest was obtained Comparison: XY CHEST PORTABLE on DOS: 09/12/24 FINDINGS: Lines and Tubes: None Lungs: Clear Pleura: No effusion. No pneumothorax. Cardiomediastinal contours: Unremarkable Bones: Unremarkable IMPRESSION: Clear lungs. Time of 1ST Reevaluation: 23:07 Reevaluation 1ST: Unchanged Patient Education/Counseling: Diagnosis, Treatment Family Education/Counseling: No Family Present Departure 1 Departure Time of Disposition: 01:19 (Patient with worsening ulcerations and generalized weakness. Is concerning for sepsis. We will cover patient with antibiotics give fluids admit patient for further workup) Impression: Primary Impression: Ulcers of both lower extremities Qualified Codes: L97.913 - Non-pressure chronic ulcer of unspecified part of right lower leg with necrosis of muscle; L97.923 - Non-pressure chronic ulcer of unspecified part of left lower leg with necrosis of muscle Additional Impressions: Penile ulcer Generalized weakness Cellulitis Qualified Codes: L03.119 - Cellulitis of unspecified part of limb Disposition: ADMITTED INPATIENT Admit to: Med Surg Condition: Serious Critical Care Note Critical Care Time?: No Stability Stability form required: No Heart Score Heart Score: Heart Score Response (Comments) Value History N/A 0 EKG N/A 0 Age N/A 0 Risk Factors N/A 0 Troponin N/A 0 Total 0 I personally scribed for MAK ARREDONDO MD ([facility]) on 11/01/24 at 23:18. Electronically submitted by Jaden Hernández ([facility]). I personally scribed for MAK ARREDONDO MD ([facility]) on 11/02/24 at 01:14. Electronically submitted by Jaden Hernández ([facility] I personally scribed for MAK ARREDONDO MD ([facility]) on 11/02/24 at 01:17. Electronically submitted by Jaden Hernández ([facility]). MAK ARREDONDO MD Nov 01, 2024 23:18
[2024-11-01 23:44] LABS: Eosinophils # (auto) 0.1 10 ^3/uL (0-0.8); Hemoglobin 11.8 g/dL (13.5-17.5); Monocytes # (auto) 0.8 10 ^3/uL (0-1.3); White Blood Cell 9.4 10^3/uL (4.4-10.8)
[2024-11-01 23:45] LABS: Basophils # (auto) 0 10 ^3/uL (0-0.2); Basophils % (auto) 0.4 % (0.0-2.0); Eosinophils % (auto) 0.5 % (0.0-7.0); Hematocrit 36.4 % (41.0-53.0); Lymphocytes # (auto) 1.1 10 ^3/uL (0.4-5.4); Lymphocytes % (auto) 12.2 % (10.0-50.0); Mean Corpuscular Hemoglobin 26.8 pg (28.0-32.0); Mean Corpuscular Hgb Conc. 32.5 g/dL (32.0-36.0); Mean Corpuscular Volume 82.5 fL (80.0-100.0); Neutrophils # (auto) 7.4 10 ^3/uL (1.6-8.6); Neutrophils % (auto) 78.9 % (37.0-80.0); Platelet Count (auto) 392 10^3/uL (140-450); Red Blood Cells 4.42 10^6/uL (4.5-5.90); Red Cell Distribution Width 16.4 % (11.8-14.3)
[2024-11-02 00:02] LABS: Alanine Aminotransferase 16 U/L (7-40); Albumin 4.1 g/dL (3.2-4.8); Anion Gap 8 (5-15); Aspartate Aminotransferase 24 U/L (13-40); Blood Urea Nitrogen 10 mg/dL (9-23); Calcium 9.4 mg/dL (8.7-10.4); Carbon Dioxide 26 mmol/L (20-31); Chloride 104 mmol/L (98-107); Lipase 28 U/L (12-53); Sodium 138 mmol/L (136-145)
[2024-11-02 00:03] LABS: Alkaline Phosphatase 205 U/L (46-116); Bilirubin, Total 0.6 mg/dL (0.2-1.0); Glucose 125 mg/dL (74-106); Potassium 3.1 mmol/L (3.5-5.1)
[2024-11-02 00:05] LABS: Lactic Acid w/Reflex 3.1 mmol/L (0.4-2.0)
[2024-11-02] MEDS: SODIUM CHLORIDE 0.9% 1,000 ML IV ONE (00:46)
[2024-11-02] MEDS: VANCOMYCIN 1GM/250ML KIT 200 ML IV ONE (00:46)
[2024-11-02] MEDS: ACETAMINOPHEN 325 MG TAB PO ONE (00:47)
--- NOTE | 2024-11-02 00:49 | DVH ---
CHEST RADIOGRAPH Indication: weakness Technique: Single frontal view of the chest was obtained Comparison: XY CHEST PORTABLE on DOS: 09/12/24 FINDINGS: Lines and Tubes: None Lungs: Clear Pleura: No effusion. No pneumothorax. Cardiomediastinal contours: Unremarkable Bones: Unremarkable IMPRESSION: Clear lungs.
--- NOTE | 2024-11-02 00:56 | DVH ---
XY R FOOT 3 VIEW XRAY, INDICATION: ulcers TECHNICAL DATA: Frontal, oblique and lateral views were obtained of the right foot. COMPARISON: None Findings/ IMPRESSION: Status post amputation of the 1st digit. Amputation versus erosive changes of the 2nd digit distal ph alanx. No acute fracture or dislocation.
[2024-11-02 01:30] VITALS: PULSE 100; RESP 14; O2SAT 99
[2024-11-02] MEDS: SODIUM CHLORIDE 0.9% 2,000 ML IV ONE (04:26)
[2024-11-02 07:30] VITALS: PULSE 79; RESP 16; O2SAT 100
[2024-11-02] MEDS ORDERED: ONDANSETRON HCL 4 MG/2 ML VIAL IV PRN (08:15)
[2024-11-02] MEDS ORDERED: HYDROcodone-ACET 5/325MG TAB PO PRN (08:15)
[2024-11-02] MEDS ORDERED: ACETAMINOPHEN 325 MG TAB PO PRN (08:15)
--- NOTE | 2024-11-02 08:15 | DVHHP2 ---
History of Present Illness Reason for Visit: Wound check History of Present Illness This 54-year-old male presents in the ED for a wound check. The patient with past medical history of uncontrolled diabetes, status post amputation of right great toe, presents in the ED with a chief complaint of multiple open sores. The patient is currently homeless, wheelchair-bound, states multiple open sores from possible bedbugs bites. Denies fever, chest pain, shortness of breath, or other acute symptoms. Past medical history of hypertension, CAD s/p pci, diabetes type 2, hyperlipidemia, tobacco abuse, and obesity. Past Medical History As stated in HPI Past Surgical History Right great toe amputation Family History Reviewed, non-contributory to the management of this case. Past Social History Tobacco use Review of Systems Constitutional: Yes: Malaise; No: Fever, Chills, Sweats, Weakness, Other Eyes: No: Pain, Vision change, Conjunctivae inflammation, Eyelid inflammation, Other, Redness ENT: No: Ear pain, Ear discharge, Nose pain, Nose discharge, Nose congestion, Mouth pain, Mouth swelling, Throat pain, Throat swelling, Other Respiratory: No: Cough, Dry, Shortness of breath, SOB with excertion, Wheezing, Hemoptysis, Pleuritic Pain, Sputum, Wheezing, Other Cardiovascular: No: Chest Pain, Palpitations, Orthopnea, Paroxysmal Noc. Dyspnea, Edema, Lt Headedness, Other Gastrointestinal: No: Nausea, Vomiting, Abdominal Pain, Diarrhea, Constipation, Melena, Hematochezia, Other Genitourinary: No Dysuria, No Frequency, No Incontinence, No Hematuria, No Retention, No Other Musculoskeletal: No: other, neck pain, shoulder pain, arm pain, back pain, hand pain, leg pain, foot pain Skin: Rash, Lesions, Other (Diabetic foot ulcer, multiple open sores) Neurological: No: Weakness, Numbness, Incoordination, Change in speech, Confusion, Seizures, Other Allergies: Coded Allergies: NO KNOWN ALLERGIES (Unverified , 01/07/24) Exam Vital Signs Vital Signs Date Time Temp Pulse Resp B/P (MAP) Pulse Ox O2 Delivery O2 Flow Rate FiO2 11/02/24 07:30 79 16 100 Room Air* 0 21 11/02/24 07:30 97.9 161/92 (115) 97.9 General Appearance: Alert, Oriented X3, Cooperative, mild distress HEENT: Atraumatic, PERRLA, EOMI Respiratory: Clear to auscultation, Normal air movement Cardiovascular: Regular rate, Normal S1, Normal S2 Abdominal: Normal bowel sounds, Soft, No tenderness Extremities: Other (Diabetic foot ulcer bilateral foot, lesions on right foot, forehead, and penile head) Neuro: Normal speech, Strength at 5/5 X4 ext, Normal tone Psych/Mental Status: Mental status NL Labs/Xrays Labs Test 11/02/24 01:25 11/01/24 23:29 Range/Units Lactic Acid Level 1.0 0.4-2.0 mmol/L White Blood Count 9.4 4.4-10.8 10^3/uL Red Blood Count 4.42 L 4.5-5.90 10^6/uL Hemoglobin 11.8 L 13.5-17.5 g/dL Hematocrit 36.4 L 41.0-53.0 % Mean Corpuscular Volume 82.5 80.0-100.0 fL Mean Corpuscular Hemoglobin 26.8 L 28.0-32.0 pg Mean Corpuscular Hemoglobin Concent 32.5 32.0-36.0 g/dL Red Cell Distribution Width 16.4 H 11.8-14.3 % Platelet Count 392 140-450 10^3/uL Mean Platelet Volume 7.2 6.9-10.8 fL Neutrophils (%) (Auto) 78.9 37.0-80.0 % Lymphocytes (%) (Auto) 12.2 10.0-50.0 % Monocytes (%) (Auto) 8.0 0.0-12.0 % Eosinophils (%) (Auto) 0.5 0.0-7.0 % Basophils (%) (Auto) 0.4 0.0-2.0 % Neutrophils # (Auto) 7.4 1.6-8.6 10 ^3/uL Lymphocytes # (Auto) 1.1 0.4-5.4 10 ^3/uL Monocytes # (Auto) 0.8 0-1.3 10 ^3/uL Eosinophils # (Auto) 0.1 0-0.8 10 ^3/uL Basophils # (Auto) 0 0-0.2 10 ^3/uL Nucleated Red Blood Cells 0.0 % Sodium Level 138 136-145 mmol/L Potassium Level 3.1 L 3.5-5.1 mmol/L Chloride Level 104 98-107 mmol/L Carbon Dioxide Level 26 20-31 mmol/L Anion Gap 8 5-15 Blood Urea Nitrogen 10 9-23 mg/dL Creatinine 0.77 0.700-1.30 mg/dL Glomerular Filtration Rate Calc 106 >90 mL/min BUN/Creatinine Ratio 13.0 10.0-20.0 Serum Glucose 125 H 74-106 mg/dL Calcium Level 9.4 8.7-10.4 mg/dL Total Bilirubin 0.6 0.2-1.0 mg/dL Aspartate Amino Transferase (AST) 24 13-40 U/L Alanine Aminotransferase (ALT) 16 7-40 U/L Alkaline Phosphatase 205 H 46-116 U/L Troponin I High Sensitivity 3 L </=54 ng/L B-Type Natriuretic Peptide 15.89 0-100 pg/mL Total Protein 7.0 5.7-8.2 g/dL Albumin 4.1 3.2-4.8 g/dL Lipase 28 12-53 U/L PROCEDURE(s): CXRP - CHEST PORTABLE REASON: weakness ORDER NUMBER(s): [id number], ACCESSION NUMBER(s): [id number] CHEST RADIOGRAPH Indication: weakness Technique: Single frontal view of the chest was obtained Comparison: XY CHEST PORTABLE on DOS: 09/12/24 FINDINGS: Lines and Tubes: None Lungs: Clear Pleura: No effusion. No pneumothorax. Cardiomediastinal contours: Unremarkable Bones: Unremarkable IMPRESSION: Clear lungs. Assessment/Plan Assessment/Plan # diabetic foot ulcer # multiple open wounds, ?Bedbugs infestation # s/p amputation of right great toe # rule out PAD Admit to medical-surgical unit Podiatry consult [place] Wound cultures Wound Care consult Arterial Doppler bilateral lower extremity # hypertension Continue with current antihypertensive Hydralazine as needed # CAD s/p PCI Continue with DAPT, lipid lowering agent, and beta christopher # hyperlipidemia Statins # uncontrolled diabetes type 2 Insulin sliding scale Lantus 24units qhs Check A1c # tobacco abuse Counseling on cessation DVT prophylaxis Medical plan discussed with patient and RN Plan discussed with: Patient My Orders Orders - NICHOLE BORJA INFORMATION ASSURANCE Procedure Category Date Status Time Admit ADMIT 11/02/24 Verified 08:13 Code Status CODE 11/02/24 Verified 08:13 Hydrocodone-Acet PHA 11/02/24 Verified 5/325mg Tab ([place] 08:15 Ondansetron Hcl PHA 11/02/24 Verified (Zofran) 08:15 Enoxaparin Sodium PHA 11/02/24 Verified (Lovenox) 10:00 Complete Blood Count LAB 11/03/24 Verified 04:00 Comprehensive LAB 11/03/24 Verified Metabolic Panel 04:00 Cardiac DIET 11/02/24 Verified Diet-2gna,Lofat,Lochol Breakfast Condition: Fair LILA 11/02/24 Verified 08:13 Acetaminophen Tablet PHA 11/02/24 Verified (Tylenol Tablet) 08:15 Morphine Sulfate PHA 11/02/24 Verified Injection 08:15 Date of Service: Nov 02, 2024 Billing Provider: NICHOLE BORJA Common Visit Codes: [id number] INP/OBS CARE (HIGH) NICHOLE BORJA Nov 02, 2024 08:15
[2024-11-02] MEDS ORDERED: VANCOMYCIN PER PHARMACY 0 MG IV SCH (09:15)
[2024-11-02] MEDS: ENOXAPARIN SOD 40 MG/0.4 ML SYRINGE SC SCH (09:25)
[2024-11-02] MEDS: PIPERACILLIN-TAZOB 3.375GM 100 ML IV ONE (09:28)
[2024-11-02] MEDS ORDERED: DEXTROSE (50%) 50ML SYRG IV PRN (09:30)
[2024-11-02] MEDS: ASPirin-EC 81 mg tab PO SCH (09:41)
[2024-11-02] MEDS: CLOPIDOGREL BISULFATE 75 MG TAB PO SCH (09:42)
[2024-11-02] MEDS: NICOTINE 21MG/24 HR TOPICAL PATCH TD SCH (09:42)
[2024-11-02] MEDS: METOPROLOL SUCCINATE XL 50 MG TAB PO SCH (09:46)
--- NOTE | 2024-11-02 11:09 | DVH ---
Bilateral Lower Extremity Arterial Duplex Clinical History: bilateral lower extremity diabetic foot ulcer Comparison: None Technique: Duplex Doppler evaluation including color Doppler and spectral/pulsed waveform analysis of the lower extremity arteries was performed. Findings: RIGHT: Peak systolic velocities are less than 150 centimeter/second. The waveforms are monophasic in the popliteal artery and calf. LEFT: Peak systolic velocities are as follows: [employer] 84 cm/s Deep femoral 55 cm/s SFA proximal 168 cm/s SFA mid-portion 154 cm/s SFA distal 111 cm/s Popliteal 102 cm/s Posterior tibial 54 cm/s Anterior tibial 72 cm/s Dorsalis pedis 72 cm/s The waveforms are monophasic with diastolic flow. IMPRESSION: No hemodynamically significant stenosis based on peak systolic velocity criteria on the right. 20-49% stenosis of the left proximal and mid superficial femoral artery based on peak systolic veloci ty criteria. Bilateral abnormal monophasic arterial waveforms are suggestive of underlying peripheral arterial dis ease. REFERENCE VALUES, [facility] ([facility]) vascular Imaging Lab Criteria: Peak systolic velocity ranges (in cm/sec) are as follows: <150 cm/s - <20 % stenosis 150-200 cm/s - 20-49% stenosis 200-300 cm/s - 50-75% stenosis >300 cm/s -> 75% stenosis
[2024-11-02] MEDS: OMEPRAZOLE-SOD BICARB 20 MG POWDER PO ONE (11:21)
[2024-11-02] MEDS: ACCU-CHEK COMFORT CURVE STRIP VI SCH (11:30)
[2024-11-02] MEDS: PANTOPRAZOLE 40 MG/10 ML VIAL INJ IV SCH (11:38)
[2024-11-02] MEDS: InsuLIN REG 1unit/0.01ml Soln (100units/ml) SC SCH (12:31)
[2024-11-02] MEDS ORDERED: VANCOMYCIN 1GM/250ML KIT 250 ML IV SCH (14:00)
[2024-11-02] MEDS: GABAPENTIN 300 MG CAP PO SCH (14:20)
[2024-11-02] MEDS: VANCOMYCIN 750MG KIT 100 ML IV SCH (14:21)
[2024-11-02] MEDS: ATORVASTATIN 20 MG TAB PO SCH (17:24)
[2024-11-02] MEDS: PIPERACILLIN-TAZOB 3.375GM 100 ML IV SCH (17:24)
[2024-11-02 19:30] VITALS: BP 109/76; PULSE 77; RESP 18; TEMP 97.9; O2SAT 100
[2024-11-02 19:54] VITALS: BP 109/76; PULSE 77; PULSE 84; RESP 18; TEMP 97.9; O2SAT 100; O2SAT 99
[2024-11-02 20:00] VITALS: PULSE 82; RESP 18; O2SAT 99
[2024-11-02 21:00] VITALS: BP 123/76; PULSE 78; RESP 20; TEMP 98; O2SAT 99
[2024-11-02] MEDS: INSULIN LANTUS (GLARGINE) 1 /0.01ml (100units/ml) SC SCH (23:18)
[2024-11-02] MEDS: MORPHINE SULFATE INJ 2 MG/ml SYRG IV PRN (23:50)
[2024-11-03] VITALS (8 sets, daily range): BP systolic 104–128; BP diastolic 65–85; PULSE 62–89; RESP 14–20; TEMP 98–98.9; O2SAT 96–100
[2024-11-03 05:41] LABS: Basophils # (auto) 0 10 ^3/uL (0-0.2); Basophils % (auto) 0.2 % (0.0-2.0); Eosinophils # (auto) 0.1 10 ^3/uL (0-0.8); Hemoglobin 10.2 g/dL (13.5-17.5); Lymphocytes # (auto) 1.1 10 ^3/uL (0.4-5.4)
[2024-11-03 05:42] LABS: Anion Gap 5 (5-15); BUN/Creatinine Ratio 11.7 (10.0-20.0); Carbon Dioxide 26 mmol/L (20-31); Sodium 139 mmol/L (136-145)
[2024-11-03 05:43] LABS: Albumin 3.2 g/dL (3.2-4.8); Bilirubin, Total 0.5 mg/dL (0.2-1.0); Eosinophils % (auto) 1.2 % (0.0-7.0); Hematocrit 31.6 % (41.0-53.0); Lymphocytes % (auto) 15.9 % (10.0-50.0); Mean Corpuscular Hemoglobin 26.6 pg (28.0-32.0); Mean Corpuscular Hgb Conc. 32.3 g/dL (32.0-36.0); Mean Corpuscular Volume 82.4 fL (80.0-100.0); Monocytes # (auto) 0.5 10 ^3/uL (0-1.3); Monocytes % (auto) 8.2 % (0.0-12.0); Neutrophils % (auto) 74.5 % (37.0-80.0); Platelet Count (auto) 337 10^3/uL (140-450); Red Blood Cells 3.83 10^6/uL (4.5-5.90); Red Cell Distribution Width 16.7 % (11.8-14.3); White Blood Cell 6.7 10^3/uL (4.4-10.8)
[2024-11-03 05:48] LABS: Alanine Aminotransferase < 9 U/L (7-40); Alkaline Phosphatase 145 U/L (46-116); Aspartate Aminotransferase 11 U/L (13-40); Blood Urea Nitrogen 9 mg/dL (9-23); Calcium 8.5 mg/dL (8.7-10.4); Chloride 108 mmol/L (98-107); Glucose 110 mg/dL (74-106); Potassium 2.9 mmol/L (3.5-5.1); Total Protein 5.5 g/dL (5.7-8.2)
[2024-11-03 09:00] LABS: Hepatitis B Surface Antigen Negative (Negative)
[2024-11-03] MEDS: POTASSIUM CHL 20MEQ/100ML 100 ML IV SCH ×2 (09:00→17:15)
[2024-11-03 09:17] LABS: Hepatitis C Antibody Negative (Negative)
[2024-11-03] MEDS ORDERED: LINA290C OR (11:13)
[2024-11-03] MEDS ORDERED: ALPR1TAB7 PO (11:13)
[2024-11-03] MEDS ORDERED: ACETAMINOPHEN 325 MG TAB PO PRN (13:30)
[2024-11-03] MEDS: DOXYCYCLINE 100MG/100ML 100 ML IV SCH (14:00)
[2024-11-03] MEDS: cefTRIAXone 1GM/50ML D5W 50 ML IV SCH (15:38)
--- NOTE | 2024-11-03 16:03 | DVHPNRES ---
Progress Note Date Seen: Nov 03, 2024 Resident Creating Document: CESAR FRANCO RESIDENT Has the PT tested + for MRSA If YES, has PT been informed?: No Medical Necessity Reason Pt with a Central, PICC or Fol: No Subjective Review of Systems A 54-year-old male with PMHx hypertension, Nonrevascularizable coronary artery disease, diabetes type 2, hyperlipidemia, tobacco abuse Presents in the ED for a wound check. The patient with past medical history of uncontrolled diabetes, status post amputation of right great toe, presents in the ED with a chief complaint of multiple open sores. The patient is currently homeless, wheelchair-bound, states multiple open sores, 3 in his right foot, one in his face and one in his penis Objective vital signs Vital Sign Date Time Temp Pulse Resp B/P (MAP) Pulse Ox O2 Delivery O2 Flow Rate FiO2 11/03/24 12:40 98.9 74 18 119/85 (96) 100 98.9 11/03/24 08:00 Nasal Cannula* 2 28 Total Intake and Output 11/02/24 11/02/24 11/03/24 15:00 23:00 07:00 Intake Total 300 ml Output Total 0 ml Balance 300 ml medications Current Medications Medications Dose Ordered Sig/Gemma Route Start Time Stop Time Status Last Admin Dose Admin Acetaminophen/ Hydrocodone Bitart 1 tab Q4HP PRN PO 11/02/24 08:15 Ondansetron HCl 4 mg Q4HP PRN IV 11/02/24 08:15 Enoxaparin Sodium 40 mg DAILY SC 11/02/24 10:00 11/03/24 09:49 40 MG Morphine Sulfate 2 mg Q4HPRN PRN IV 11/02/24 08:15 11/02/24 23:50 2 MG Aspirin 81 mg DAILY PO 11/02/24 10:00 11/03/24 09:48 81 MG Atorvastatin Calcium 40 mg DAILY@DINNER PO 11/02/24 17:30 11/02/24 17:24 40 MG Clopidogrel Bisulfate 75 mg DAILY PO 11/02/24 10:00 11/03/24 09:48 75 MG Gabapentin 300 mg TID PO 11/02/24 14:00 11/03/24 15:32 300 MG Nicotine 1 patch DAILY TD 11/02/24 10:00 11/03/24 15:34 1 PATCH Metoprolol Succinate 25 mg DAILY PO 11/02/24 10:00 11/03/24 09:49 25 MG Diagnostic Test (Pha) 1 strip ACHS 11/02/24 11:30 11/03/24 11:54 1 STRIP Insulin Human Regular ACHS SC 11/02/24 11:30 11/03/24 12:25 4 UNITS Dextrose 50 ml UD PRN IV 11/02/24 09:30 Insulin Glargine 24 units HS SC 11/02/24 22:00 11/02/24 23:18 24 UNITS Pantoprazole Sodium 40 mg DAILY IV 11/02/24 11:30 11/03/24 09:48 40 MG Vancomycin HCl 250 ml @ 250 mls/hr Q12H IV 11/02/24 14:00 UNV Ceftriaxone Sodium 50 ml @ 100 mls/hr DAILY@09 IV 11/03/24 13:32 11/03/24 15:38 100 MLS/HR Doxycycline Hyclate 100 ml @ 50 mls/hr Q12HR IV 11/03/24 14:00 Mupirocin 1 applic BID TOP 11/03/24 22:00 Acetaminophen 325 mg Q6HP PRN PO 11/03/24 13:30 Examination General Appearance: Alert, Oriented X3, Cooperative, mild distress HEENT: Atraumatic, PERRLA, EOMI Respiratory: Clear to auscultation, Normal air movement Cardiovascular: Regular rate, Normal S1, Normal S2 Abdominal: Normal bowel sounds, Soft, No tenderness Extremities: lesions on right foot medial and lateral, with blisters, excoriation in the, forehead and balanitis in his penis Neuro: Normal speech, Strength at 5/5 X4 ext, Normal tone Psych/Mental Status: Mental status NL laboratory and microbiology Laboratory Tests 11/03/24 04:55 Test 11/03/24 04:55 Range/Units Serum Glucose 110 H 74-106 mg/dL Microbiology Date/Time Source Procedure Growth Status 11/02/24 11:00 Foot Gram Stain - Final Resulted 11/02/24 11:00 Foot Wound Culture - Preliminary Resulted 11/01/24 23:30 Blood Blood Culture - Preliminary NO GROWTH AFTER 24 HOURS OF INCUBATION. Resulted Problem List/Assessment/Plan Problem List/Assessment/Plan #diabetic foot? #balanitis #multiple excorations # uncontrolled type 2 diabetes mellitus with hyperglycemia # hypertensive heart disease with diastolic disfunction # peripheral neuropathy # mild anemia likely due to iron-deficiency #Tobacco use disorder #lumbar spinal stenosis #chronically occluded right coronary artery #Hypokalemia Telemetry due to hypokalemia K IV+ Doxycycline IV Ceftriaxone IV Mupirocin topical in the penis Lantus 24 UI DAPT Metoprolol Pending podiatry consult Case discussed with Dr Ashton Time spent on care 23 min Plan discussed with: Patient, Other (rn) My Orders My Orders Orders - CESAR FRANCO RESIDENT Procedure Category Date Status Time Doxycycline PHA 11/03/24 In Process 100mg/100ml 14:00 Mupirocin 2% Ointment PHA 11/03/24 In Process (Bactroban 2% Oint 22:00 Acetaminophen Tablet PHA 11/03/24 In Process (Tylenol Tablet) 13:30 Ceftriaxone 1gm/50ml PHA 11/03/24 In Process D5w (Rocephin) 13:32 Transfer Orders XFER 11/03/24 Transmitted 14:17 Date of Service: Nov 03, 2024 Billing Provider: MARILUZ ASHTON MD Common Visit Codes: [id number] INP/OBS CARE(HIGH) CESAR FRANCO RESIDENT Nov 03, 2024 16:03 MARILUZ ASHTON MD Nov 05, 2024 16:39
[2024-11-03] MEDS: MUPIROCIN 2% OINT 15gm or 22gm TOP SCH (22:05)
[2024-11-04] VITALS (7 sets, daily range): BP systolic 105–164; BP diastolic 67–94; PULSE 79–85; RESP 14–18; TEMP 97.8–98.4; O2SAT 99–100
[2024-11-04 06:03] LABS: Basophils # (auto) 0 10 ^3/uL (0-0.2); Basophils % (auto) 0.4 % (0.0-2.0); Eosinophils # (auto) 0.1 10 ^3/uL (0-0.8); Eosinophils % (auto) 1.5 % (0.0-7.0); Hematocrit 32.7 % (41.0-53.0); Hemoglobin 10.7 g/dL (13.5-17.5); Lymphocytes # (auto) 1.5 10 ^3/uL (0.4-5.4); Lymphocytes % (auto) 20.1 % (10.0-50.0); Mean Corpuscular Hemoglobin 27.1 pg (28.0-32.0); Mean Corpuscular Hgb Conc. 32.6 g/dL (32.0-36.0); Monocytes # (auto) 0.6 10 ^3/uL (0-1.3); Monocytes % (auto) 8.3 % (0.0-12.0); Neutrophils # (auto) 5.3 10 ^3/uL (1.6-8.6); Neutrophils % (auto) 69.7 % (37.0-80.0); Platelet Count (auto) 385 10^3/uL (140-450); Red Blood Cells 3.94 10^6/uL (4.5-5.90); Red Cell Distribution Width 16.7 % (11.8-14.3); White Blood Cell 7.5 10^3/uL (4.4-10.8)
[2024-11-04 06:29] LABS: Alanine Aminotransferase 10 U/L (7-40); Albumin 3.4 g/dL (3.2-4.8); Anion Gap 6 (5-15); BUN/Creatinine Ratio 13.4 (10.0-20.0); Bilirubin, Total 0.3 mg/dL (0.2-1.0); Blood Urea Nitrogen 9 mg/dL (9-23); Calcium 9.6 mg/dL (8.7-10.4); Carbon Dioxide 27 mmol/L (20-31); Chloride 104 mmol/L (98-107); Potassium 3.9 mmol/L (3.5-5.1); Sodium 137 mmol/L (136-145); Total Protein 6.1 g/dL (5.7-8.2)
[2024-11-04 06:49] LABS: Alkaline Phosphatase 141 U/L (46-116); Aspartate Aminotransferase 9 U/L (13-40); Glucose 137 mg/dL (74-106)
[2024-11-04 07:06] LABS: RPR Non Reactive (Non Reactive)
--- NOTE | 2024-11-04 13:26 | DVHINCON2 ---
Date Seen: Nov 04, 2024 Reason for Consultation Right foot wounds History of Present Illness This 54-year-old male presents in the ED for a wound check. The patient with past medical history of uncontrolled diabetes, status post amputation of right great toe, presents in the ED with a chief complaint of multiple open sores. The patient is currently homeless, wheelchair-bound, states multiple open sores from possible bedbugs bites. Denies fever, chest pain, shortness of breath, or other acute symptoms. Past medical history of hypertension, CAD s/p pci, diabetes type 2, hyperlipidemia, tobacco abuse, and obesity. Past Medical History See H&P Past Surgical History See H&P Family History: Cardiovascular disease G8 FATHER, , Age: 25 (HEART ATTACK) Allergies: Coded Allergies: NO KNOWN ALLERGIES (Unverified , 01/07/24) Home Meds Active Scripts Metoprolol Succinate (Metoprolol Succinate Er) 25 Mg Tab, 1 TAB PO DAILY for 30 Days, #30 TAB 1 Refill Prov:WANDER MERCER RESIDENT 09/15/24 Clopidogrel Bisulfate (Plavix) 75 Mg Tab, 1 TAB PO DAILY for 30 Days, #30 TAB 2 Refills Prov:WANDER MERCER RESIDENT 09/15/24 Atorvastatin Calcium (ATORVASTATIN CALCIUM) 20 Mg Tab, 40 MG PO DAILY@DINNER for 30 Days, #60 TAB 1 Refill Prov:WANDER MERCER RESIDENT 09/15/24 Aspirin (Aspirin Low Dose) 81 Mg Tab, 81 MG PO DAILY for 30 Days, #30 TAB 1 Refill Prov:WANDER MERCER RESIDENT 09/15/24 Ergocalciferol (VITAMIN D 05952 UNIT) 50,000 [place], [address] UNIT PO ONCE A WEEK, #6 CAP Prov:JOSH TORREZ RESIDENT 01/08/24 Reported Medications Alprazolam (Alprazolam) 1 Mg Tab, 1 TAB PO TID for anxiety, #90 TAB 11/03/24 Linaclotide Base (LINZESS) 290 Mcg Cap, 290 MCG OR, CAP 11/03/24 Hydrocodone-Acetaminophen (Hydrocodone Bitartrate/AC 5-325 mg) 1 Tab Tab, 1 TAB PO, TAB 09/13/24 Gabapentin (Gabapentin) 300 Mg Cap, 300 MG PO TID for 30 Days, MG 09/13/24 Nicotine (Nicoderm 21MG/24HR) 1 Patch Ph, 1 PATCH TOP DAILY, #28 PATCH 1 Refill 09/13/24 Omeprazole Magnesium (Omeprazole) 20 Mg Tab, 20 MG PO, TAB 09/13/24 Insulin Glargine-Yfgn (Insulin Glargine) 100 Unit/Ml Inj, 100 UNIT SC for DIABETES, INJ 01/19/24 Insulin Lispro (Humalog Kwikpen) 100 Unit/Ml Inj, 100 UNIT SC for DIABETES, INJ 01/19/24 Current Medications Current Medications Medications (Trade) Dose Ordered Sig/Gemma Route PRN Reason Start Time Stop Time Status Last Admin Ceftriaxone Sodium 50 ml @ 100 mls/hr DAILY@09 IV 11/03/24 13:32 11/04/24 09:49 Doxycycline Hyclate 100 ml @ 50 mls/hr Q12HR IV 11/03/24 14:00 11/04/24 09:53 Mupirocin (Bactroban 2% Ointment) 1 applic BID TOP 11/03/24 22:00 11/04/24 11:08 Acetaminophen (Tylenol Tablet) 325 mg Q6HP PRN PO MILD PAIN (1-3 PAIN SCALE) 11/03/24 13:30 Potassium Chloride 100 ml @ 50 mls/hr Q2H IV 11/03/24 17:15 11/03/24 21:14 DC Vital Signs Vital Signs Date Time Temp Pulse Resp B/P (MAP) Pulse Ox O2 Delivery O2 Flow Rate FiO2 11/04/24 09:54 80 132/85 11/04/24 09:00 98.1 18 100 98.1 11/04/24 08:00 Nasal Cannula* 2 28 Physical Exam DERMATOLOGIC EXAM: - Skin is dry and cool to the touch dry bilaterally. - Nails 1-5 of the bilateral foot are thickened, discolored, dystrophic, and tender to palpate with subungual debris - Hair loss noted to bilateral feet - superficial eschar of the medial and lateral aspect of the right foot VASCULAR EXAM: - DP and PT pulses are palpable bilaterally. - THERMAL ENGINEER is brisk to all digits. - Feet are cool to touch compared to lower legs bilaterally. NEUROLOGIC EXAM: - Normal light touch sensation to the superficial peroneal, deep peroneal, sural, saphenous, and tibial nerve branches. - Protective sensation is diminished as tested with a 5.07 10g Sunflower-Julián bilaterally. MUSCULOSKELETAL EXAM: - No gross deformities - Muscle strength is 5/5 and active motion is pain-free and symmetrical bilaterally - No pain or crepitation with passive range of motion bilaterally to all major pedal joints Labs/Diagnostic Data Labs Test 11/04/24 11:16 11/04/24 05:08 11/03/24 19:44 11/03/24 04:55 Range/Units POC Glucose 208 H 70-106 mg/dl White Blood Count 7.5 4.4-10.8 10^3/uL Red Blood Count 3.94 L 4.5-5.90 10^6/uL Hemoglobin 10.7 L 13.5-17.5 g/dL Hematocrit 32.7 L 41.0-53.0 % Mean Corpuscular Volume 83.0 80.0-100.0 fL Mean Corpuscular Hemoglobin 27.1 L 28.0-32.0 pg Mean Corpuscular Hemoglobin Concent 32.6 32.0-36.0 g/dL Red Cell Distribution Width 16.7 H 11.8-14.3 % Platelet Count 385 140-450 10^3/uL Mean Platelet Volume 7.3 6.9-10.8 fL Neutrophils (%) (Auto) 69.7 37.0-80.0 % Lymphocytes (%) (Auto) 20.1 10.0-50.0 % Monocytes (%) (Auto) 8.3 0.0-12.0 % Eosinophils (%) (Auto) 1.5 0.0-7.0 % Basophils (%) (Auto) 0.4 0.0-2.0 % Neutrophils # (Auto) 5.3 1.6-8.6 10 ^3/uL Lymphocytes # (Auto) 1.5 0.4-5.4 10 ^3/uL Monocytes # (Auto) 0.6 0-1.3 10 ^3/uL Eosinophils # (Auto) 0.1 0-0.8 10 ^3/uL Basophils # (Auto) 0 0-0.2 10 ^3/uL Nucleated Red Blood Cells 0.0 % Sodium Level 137 136-145 mmol/L Potassium Level 3.9 3.5-5.1 mmol/L Chloride Level 104 98-107 mmol/L Carbon Dioxide Level 27 20-31 mmol/L Anion Gap 6 5-15 Blood Urea Nitrogen 9 9-23 mg/dL Creatinine 0.67 L 0.700-1.30 mg/dL Glomerular Filtration Rate Calc 111 >90 mL/min BUN/Creatinine Ratio 13.4 10.0-20.0 Serum Glucose 137 H 74-106 mg/dL Calcium Level 9.6 8.7-10.4 mg/dL Total Bilirubin 0.3 0.2-1.0 mg/dL Aspartate Amino Transferase (AST) 9 L 13-40 U/L Alanine Aminotransferase (ALT) 10 7-40 U/L Alkaline Phosphatase 141 H 46-116 U/L Total Protein 6.1 5.7-8.2 g/dL Albumin 3.4 3.2-4.8 g/dL Vancomycin Level Trough 5.1 5-10 ug/mL Hepatitis B Surface Antigen Negative Negative Hepatitis C Antibody Negative Negative Test 11/02/24 01:25 11/01/24 23:29 Range/Units Lactic Acid Level 1.0 0.4-2.0 mmol/L Hemoglobin A1c 9.9 H <5.7 % A1C Troponin I High Sensitivity 3 L </=54 ng/L B-Type Natriuretic Peptide 15.89 0-100 pg/mL Lipase 28 12-53 U/L Rapid Plasma Reagin Non reactive Non Reactive Microbiology Date/Time Source Procedure Growth Status 11/02/24 11:00 Foot Gram Stain - Final Resulted 11/02/24 11:00 Wound Culture - Preliminary Methicillin Resistant S.aureus Resulted 11/01/24 23:30 Blood Blood Culture - Preliminary NO GROWTH AFTER 48 HOURS OF INCUBATION. Resulted Problems(with codes): (1) Hyperglycemia (2) Elevated lactic acid level (3) Bilateral lower leg cellulitis (4) Urinary retention (5) Back pain (6) Colitis (7) Impaired gait (8) Anemia (9) Hyponatremia (10) Acute coronary syndrome (11) Hyperglycemia due to diabetes mellitus (12) Generalized weakness (13) Cellulitis (14) Penile ulcer (15) Ulcers of both lower extremities Plan/Recommendation ASSESSMENT: Patient is a 54 year old who was seen in clinic for DM ulcer care PLAN: - The patients chart was reviewed, clinical findings were discussed with the patient, the etiologies of the conditions were discussed in detail, and a treatment plan was agreed to at this time, with both oral and written instructions provided. - reviewed advanced imaging - discussed with the patient that the wounds appear to be superficial at this point - our goal would be to paint the wounds with Betadine prevent any infection - patient will need to establish wound and diabetic foot care - patient can weightbear as tolerated in postoperative shoe - patient will follow up with me when he is discharged All questions were answered and concerns addressed to the patient's satisfact ion. The patient was given the phone number to the clinic and was told how to make contact with the clinic should any concerns or questions arise. Patient understands that if any questions or concerns arise prior to the next appointment, we should be contacted immediately. FOLLOW-UP: Patient will follow up with me in 1 week for continued wound care Plan discussed with: Patient Date of Service: Nov 04, 2024 Billing Provider: GREGG VINSON DPM Common Visit Codes: CONSULT ONLY Consultation Codes: [id number] CONSULT <80MIN GREGG VINSON DPM Nov 04, 2024 13:26
[2024-11-04] MEDS ORDERED: [UNRECOGNIZED DRUG - CODE] EX ×2 (13:44)
[2024-11-04] MEDS ORDERED: MUPI2CRE17 EX ×2 (13:44)
--- NOTE | 2024-11-04 15:49 | DVHDSRES ---
Discharge Summary Date of Admission Resident Creating Document: CESAR FRANCO RESIDENT Nov 02, 2024 at 08:13 Date of Discharge: Nov 04, 2024 Admitting Diagnosis diabetic foot Labs/Diagnostic Data: Laboratory Results Test 11/04/24 11:16 11/04/24 05:08 11/03/24 19:44 11/03/24 04:55 POC Glucose 208 mg/dl (70-106) White Blood Count 7.5 10^3/uL (4.4-10.8) Red Blood Count 3.94 10^6/uL (4.5-5.90) Hemoglobin 10.7 g/dL (13.5-17.5) Hematocrit 32.7 % (41.0-53.0) Mean Corpuscular Volume 83.0 fL (80.0-100.0) Mean Corpuscular Hemoglobin 27.1 pg (28.0-32.0) Mean Corpuscular Hemoglobin Concent 32.6 g/dL (32.0-36.0) Red Cell Distribution Width 16.7 % (11.8-14.3) Platelet Count 385 10^3/uL (140-450) Mean Platelet Volume 7.3 fL (6.9-10.8) Neutrophils (%) (Auto) 69.7 % (37.0-80.0) Lymphocytes (%) (Auto) 20.1 % (10.0-50.0) Monocytes (%) (Auto) 8.3 % (0.0-12.0) Eosinophils (%) (Auto) 1.5 % (0.0-7.0) Basophils (%) (Auto) 0.4 % (0.0-2.0) Neutrophils # (Auto) 5.3 10 ^3/uL (1.6-8.6) Lymphocytes # (Auto) 1.5 10 ^3/uL (0.4-5.4) Monocytes # (Auto) 0.6 10 ^3/uL (0-1.3) Eosinophils # (Auto) 0.1 10 ^3/uL (0-0.8) Basophils # (Auto) 0 10 ^3/uL (0-0.2) Nucleated Red Blood Cells 0.0 % Sodium Level 137 mmol/L (136-145) Potassium Level 3.9 mmol/L (3.5-5.1) Chloride Level 104 mmol/L (98-107) Carbon Dioxide Level 27 mmol/L (20-31) Anion Gap 6 (5-15) Blood Urea Nitrogen 9 mg/dL (9-23) Creatinine 0.67 mg/dL (0.700-1.30) Glomerular Filtration Rate Calc 111 mL/min (>90) BUN/Creatinine Ratio 13.4 (10.0-20.0) Serum Glucose 137 mg/dL (74-106) Calcium Level 9.6 mg/dL (8.7-10.4) Total Bilirubin 0.3 mg/dL (0.2-1.0) Aspartate Amino Transferase (AST) 9 U/L (13-40) Alanine Aminotransferase (ALT) 10 U/L (7-40) Alkaline Phosphatase 141 U/L (46-116) Total Protein 6.1 g/dL (5.7-8.2) Albumin 3.4 g/dL (3.2-4.8) Vancomycin Level Trough 5.1 ug/mL (5-10) Hepatitis B Surface Antigen Negative (Negative) Hepatitis C Antibody Negative (Negative) Test 11/02/24 01:25 11/01/24 23:29 Lactic Acid Level 1.0 mmol/L (0.4-2.0) Hemoglobin A1c 9.9 % A1C (<5.7) Troponin I High Sensitivity 3 ng/L (</=54) B-Type Natriuretic Peptide 15.89 pg/mL (0-100) Lipase 28 U/L (12-53) Rapid Plasma Reagin Non reactive (Non Reactive) Other Laboratory Tests 11/04/24 05:08 Brief Hx & Hospital Course: A 54-year-old male with a history of poorly controlled type 2 diabetes mellitus, hypertensive heart disease with diastolic dysfunction, peripheral neuropathy, and chronic right coronary artery occlusion, presented with multiple open sores: three on the right foot, one on the face, and one on the penis. The patient is wheelchair-bound. Patient had history of great toe amputation. Dominguez findings include multiple excoriations concerning for possible diabetic foot ulcers, foot x ray without fracture or concerning findings, which were addressing by Edger Feeder who didnt consider surgery and only topical treatment, balantitis, and signs of iron-deficiency mild anemia. In patient management included IV antibiotics (doxycycline and ceftriaxone), mupirocin ointment for penile lesions, Lantus for glycemic control, dual antiplatelet therapy, and metoprolol. PAD was found which will be treated with aspirin already in the prescription of the patient. Patient will be f/u in [place] clinic in 7 days General Appearance: Alert, Oriented X3, Cooperative, mild distress HEENT: Atraumatic, PERRLA, EOMI Respiratory: Clear to auscultation, Normal air movement Cardiovascular: Regular rate, Normal S1, Normal S2 Abdominal: Normal bowel sounds, Soft, No tenderness Extremities: lesions on right foot medial and lateral, with blisters, excoriation in the, forehead and balanitis in his penis Neuro: Normal speech, Strength at 5/5 X4 ext, Normal tone Psych/Mental Status: Mental status NL This case was discussed with Dr. Ashton, with 23 minutes spent on care and patient education. Consults/Reason for consult podiatry due to foot lesions Operations or Procedures Bilateral Lower Extremity Arterial Duplex Clinical History: bilateral lower extremity diabetic foot ulcer Comparison: None Technique: Duplex Doppler evaluation including color Doppler and spectral/pulsed waveform analysis of the lower extremity arteries was performed. Findings: RIGHT: Peak systolic velocities are less than 150 centimeter/second. The waveforms are monophasic in the popliteal artery and calf. LEFT: Peak systolic velocities are as follows: DECISION SUPPORT ANALYST 84 cm/s Deep femoral 55 cm/s SFA proximal 168 cm/s SFA mid-portion 154 cm/s SFA distal 111 cm/s Popliteal 102 cm/s Posterior tibial 54 cm/s Anterior tibial 72 cm/s Dorsalis pedis 72 cm/s The waveforms are monophasic with diastolic flow. IMPRESSION: No hemodynamically significant stenosis based on peak systolic velocity criteria on the right. 20-49% stenosis of the left proximal and mid superficial femoral artery based on peak systolic velocity criteria. Bilateral abnormal monophasic arterial waveforms are suggestive of underlying peripheral arterial disease. XY R FOOT 3 VIEW XRAY, INDICATION: ulcers TECHNICAL DATA: Frontal, oblique and lateral views were obtained of the right foot. COMPARISON: None Findings/ IMPRESSION: Status post amputation of the 1st digit. Amputation versus erosive changes of the 2nd digit distal phalanx. No acute fracture or dislocation. Condition at Discharge: Stable Final Diagnosis/Problems List #diabetic foot? #osteomyelitis ruled out #balanitis #multiple excorations # uncontrolled type 2 diabetes mellitus with hyperglycemia # hypertensive heart disease with diastolic disfunction # peripheral neuropathy # mild anemia likely due to iron-deficiency #Tobacco use disorder #lumbar spinal stenosis #chronically occluded right coronary artery #Hypokalemia Discharge Disposition: Home Discharge Instruct/Medications Diet: Consistent carbohydrate, Cardiac 2g Na,low cholest Activity: Light activity Follow Up/Referral: [facility] Medications: see prescription Discharge Statement: "Patient was advised to return to the ER or call 911 if any headaches, dizziness, shortness of breath, chest pain, abdominal pain, bleeding, fevers, or worsening of medical condition. Patient was counseled about treatment plan, medications, possible side effects, patientverbalized understanding. All questions were answered to the best of my ability. This discharge took greater then 30 minutes in planning, reviewing documentation, counseling the patient, and discussing with other team members." ASSESSMENT ASSESSMENT Assessment #diabetic foot? #balanitis #multiple excorations # uncontrolled type 2 diabetes mellitus with hyperglycemia # hypertensive heart disease with diastolic disfunction # peripheral neuropathy # mild anemia likely due to iron-deficiency #Tobacco use disorder #lumbar spinal stenosis #chronically occluded right coronary artery #Hypokalemia Date of Service: Nov 04, 2024 Billing Provider: MARILUZ ASHTON MD Common Visit Codes: [id number] DISCH DAY >30min CESAR FRANCO RESIDENT Nov 04, 2024 15:49 MARILUZ ASHTON MD Nov 05, 2024 16:39
[2024-11-04] MEDS ORDERED: DOXY50CA PO ×2 (16:21)
== END 2024-11-04 19:13 | disposition home or self-care (01) | DRG 380 ==
LOC: ER 22:33 → OVERFLOW 11-02 08:13 → CENTRAL 11-02 18:49 → TELE-CENTR 11-03 19:42
PROVIDERS: ADMIT Student in an Organized Health Care Education/Training Program; ATTEND Student in an Organized Health Care Education/Training Program
DX: E11.621 Type 2 diabetes mellitus with foot ulcer (principal); L97.523 Non-pressure chronic ulcer of other part of left foot with necrosis of muscle; L97.513 Non-pressure chronic ulcer of other part of right foot with necrosis of muscle; E87.20 Acidosis, unspecified; E11.42 Type 2 diabetes mellitus with diabetic polyneuropathy; L03.115 Cellulitis of right lower limb; D50.9 Iron deficiency anemia, unspecified; E11.65 Type 2 diabetes mellitus with hyperglycemia; I11.9 Hypertensive heart disease without heart failure; E66.9 Obesity, unspecified; E78.5 Hyperlipidemia, unspecified; F17.210 Nicotine dependence, cigarettes, uncomplicated; I25.10 Atherosclerotic heart disease of native coronary artery without angina pectoris; N48.5 Ulcer of penis; M48.061 Spinal stenosis, lumbar region without neurogenic claudication; E87.6 Hypokalemia; N48.1 Balanitis; L03.116 Cellulitis of left lower limb; Z79.4 Long term (current) use of insulin; Z89.411 Acquired absence of right great toe; Z59.00 Homelessness unspecified; Z99.3 Dependence on wheelchair; Z98.61 Coronary angioplasty status; Z82.49 Family history of ischemic heart disease and other diseases of the circulatory system; Z68.23 Body mass index [BMI] 23.0-23.9, adult; I50.32 Chronic diastolic (congestive) heart failure; I11.0 Hypertensive heart disease with heart failure
CPT/HCPCS: 36415; 71045; 73630; 80053; 80202; 82962; 83036; 83605; 83690; 83880; 84484; 85025; 86592; 86803; 87040; 87077; 87186; 87205; 87340; 93925; G0378; J0692; J1815; J2405; J2470; J2543; J3480

== ENCOUNTER 2024-11-09 23:06 | Inpatient (IN) | payer MEDICAID ==
[~2024-11-09] VITALS: Ht 172.7 cm; Wt 58.2 kg
[~2024-11-09 23:06] MED LIST changes: +ALPR1TAB7 PO; +DOXY50CA PO; +LINA290C OR; +MUPI2CRE17 EX; +[UNRECOGNIZED DRUG - CODE] EX
--- NOTE | 2024-11-09 23:34 | ED.PDOC ---
History of Present Illness HPI Comments pt was discharged for the same on 11/04/04 but could not afford his antibiotic, so never filled the prescription Chief Complaint: Wound Check Comments pt now reports the right foot is red, swollen, and he noticed pus this morning. he quit tobacco 3 months ago Time Seen by MD: 23:14 Primary Care Provider: NONE Allergies: Coded Allergies: NO KNOWN ALLERGIES (Unverified , 01/07/24) Home Meds Active Scripts Doxycycline Hyclate (Doxycycline Hyclate) 50 Mg Cap, 1 CAP PO BID for 10 Days, #20 CAP Prov:CESAR FRANCO RESIDENT 11/04/24 Povidone Iodine (Betadine Antiseptic Dry P) 5 % Aer, 5 % EX TID for 30 Days, #1 AER apply in the foot wounds Prov:CESAR FRANCO RESIDENT 11/04/24 Mupirocin Calcium (Topical) (MUPIROCIN) 2 % Cre, 2 % EX BID for 6 Days, #1 CRE apply in the penis areas Prov:CESAR FRANCO RESIDENT 11/04/24 Metoprolol Succinate (Metoprolol Succinate Er) 25 Mg Tab, 1 TAB PO DAILY for 30 Days, #30 TAB 1 Refill Prov:WANDER MERCER RESIDENT 09/15/24 Clopidogrel Bisulfate (Plavix) 75 Mg Tab, 1 TAB PO DAILY for 30 Days, #30 TAB 2 Refills Prov:WANDER MERCER RESIDENT 09/15/24 Atorvastatin Calcium (ATORVASTATIN CALCIUM) 20 Mg Tab, 40 MG PO DAILY@DINNER for 30 Days, #60 TAB 1 Refill Prov:WANDER MERCER RESIDENT 09/15/24 Aspirin (Aspirin Low Dose) 81 Mg Tab, 81 MG PO DAILY for 30 Days, #30 TAB 1 R efill Prov:WANDER MERCER RESIDENT 09/15/24 Ergocalciferol (VITAMIN D 59753 UNIT) 50,000 [place], [address] UNIT PO ONCE A WEEK, #6 CAP Prov:JOSH TORREZ RESIDENT 01/08/24 Reported Medications Alprazolam (Alprazolam) 1 Mg Tab, 1 TAB PO TID for anxiety, #90 TAB 11/03/24 Linaclotide Base (LINZESS) 290 Mcg Cap, 290 MCG OR, CAP 11/03/24 Hydrocodone-Acetaminophen (Hydrocodone Bitartrate/AC 5-325 mg) 1 Tab Tab, 1 TAB PO, TAB 09/13/24 Gabapentin (Gabapentin) 300 Mg Cap, 300 MG PO TID for 30 Days, MG 09/13/24 Nicotine (Nicoderm 21MG/24HR) 1 Patch Ph, 1 PATCH TOP DAILY, #28 PATCH 1 Refill 09/13/24 Omeprazole Magnesium (Omeprazole) 20 Mg Tab, 20 MG PO, TAB 09/13/24 Insulin Glargine-Yfgn (Insulin Glargine) 100 Unit/Ml Inj, 100 UNIT SC for DIABETES, INJ 01/19/24 Insulin Lispro (Humalog Kwikpen) 100 Unit/Ml Inj, 100 UNIT SC for DIABETES, INJ 01/19/24 Information Source: Patient, [facility] Medical Record (admission med rec from 10/24/04, 09/12/24 for acs, 01/19/24 for urinary retention, 01/07/24 for bilateral foot cellulitis), Past Medical Record Mode of Arrival: Wheelchair Severity: Moderate Timing: Days Duration: Since onset Medication Refill: For: Other (never filled the prescriptions) Past Medical History PAST MEDICAL HISTORY: CAD, DM, HTN Surgical History: Appendectomy, Denies all surgeries Surgical History (Other): right great toe amputation Family History Family History: Reviewed,noncontributory to illness Social History Smoker: Quit Less Than 1 Year, Cigarettes Alcohol: Denies ETOH Use Drugs: Denies Drug Use Lives In: Homeless Constitutional: denies: chills, diaphoresis, fatigue, fever, malaise, sweats, weakness, others EENTM: denies: blurred vision, double vision, ear bleeding, ear discharge, ear drainage, ear pain, ear ringing, eye pain, eye redness, hearing loss, mouth pain, mouth swelling, nasal discharge, nose bleeding, nose congestion, nose pain, photophobia, tearing, throat pain, throat swelling, voice changes, others Respiratory: denies: cough, hemoptysis, orthopnea, SOB at rest, shortness of breath, SOB with excertion, stridor, wheezing, others Cardiovascular: denies: chest pain, dizzy spells, diaphoresis, Dyspnea on exertion, edema, irregular heart beat, left arm pain, lightheadedness, palpitations, PND, syncope, others Gastrointestinal: denies: abdomen distended, abdominal pain, blood streaked bowels, constipated, diarrhea, dysphagia, difficulty swallowing, hematemesis, melena, nausea, poor appetite, poor fluid intake, rectal bleeding, rectal pain, vomiting, others Genitourinary: denies: burning, dysuria, flank pain, frequency, hematuria, incontinence, penile discharge, penile sore, pain, testicle pain, testicle swell ing, urgency, others Neurological: denies: dizziness, fainting, headache, left sided numbness, left sided weakness, numbness, paresthesia, pre-existing deficit, right sided numbness, right sided weakness, seizure, speech problems, tingling, tremors, weakness, others Musculoskeletal: denies: back pain, gout, joint pain, joint swelling, muscle pain, muscle stiffness, neck pain, others Integumetry: reports: rash; denies: bruises, change in color, change in hair/nails, dryness, laceration, lesions, lumps, wounds, others Allergic/Immunocompromised: denies: Difficulty Healing, Frequent Infections, Hives, Itching, others Hematologic/Lymphatic: denies: anemia, blood clots, easy bleeding, easy bruising, swollen glands, others Endocrine: denies: excessive hunger, excessive sweating, excessive thirst, excessive urination, flushing, intolerance to cold, intolerance to heat, unexplained weight gain, unexplained weight loss, others Psychiatric: denies: anxiety, bipolar disorder, depression, hopeless, panic disorder, schizophrenia, sleepless, suicidal, others All Other Systems: Reviewed and Negative Physical Exam General Appearance: No Apparent Distress, Normal HEENT: Normal ENT Inspection, Pharynx Normal, TMs Normal Neck: Full Range of Motion, Non-Tender, Normal, Normal Inspection Respiratory: Chest Non-Tender, Lungs Clear, No Accessory Muscle Use, No Respira tory Distress, Normal Breath Sounds Cardiovascular: No Edema, No JVD, No Murmur, No Gallop, Normal Peripheral Pulses, Regular Rate/Rhythm Breast Exam: Deferred Gastrointestinal: No Organomegaly, Non Tender, No Pulsatile Mass, Normal Bowel Sounds, Soft Genitalia: Deferred Pelvic: Deferred Rectal: Deferred Extremities: No calf tenderness, Normal capillary refill, Normal inspection, Normal range of motion, Non-tender, No pedal edema Musculoskeletal : Apperance: Normal Neurologic: Alert, guest relations associate II-XII nml as Tested, No Motor Deficits, Normal Affect, Normal Mood, No Sensory Deficits Cerebellar Function: Normal Reflexes: Normal Skin: Dry, Rash (right foot, dorsum aspect is red, warm to touch, swollen, no discharge, no open wounds, no streaks), Warm Lymphatic: No Adenopathy Was a procedure done? Was a procedure done?: No Differential Dx Considerations may include: cellulitis, abscess, osteomyelitis, necrotizing fasciitis X-Ray, Labs, Meds, VS Vital Signs Date Time Temp Pulse Resp B/P (MAP) Pulse Ox O2 Delivery O2 Flow Rate FiO2 11/09/24 23:11 98.9 100 19 111/82 (92) 100 Lab Test 11/09/24 23:49 Range/Units White Blood Count 7.2 4.4-10.8 10^3/uL Red Blood Count 3.99 L 4.5-5.90 10^6/uL Hemoglobin 10.5 L 13.5-17.5 g/dL Hematocrit 33.3 L 41.0-53.0 % Mean Corpuscular Volume 83.5 80.0-100.0 fL Mean Corpuscular Hemoglobin 26.4 L 28.0-32.0 pg Mean Corpuscular Hemoglobin Concent 31.6 L 32.0-36.0 g/dL Red Cell Distribution Width 16.7 H 11.8-14.3 % Platelet Count 508 H 140-450 10^3/uL Mean Platelet Volume 7.2 6.9-10.8 fL Neutrophils (%) (Auto) 71.7 37.0-80.0 % Lymphocytes (%) (Auto) 18.8 10.0-50.0 % Monocytes (%) (Auto) 8.1 0.0-12.0 % Eosinophils (%) (Auto) 1.0 0.0-7.0 % Basophils (%) (Auto) 0.4 0.0-2.0 % Neutrophils # (Auto) 5.2 1.6-8.6 10 ^3/uL Lymphocytes # (Auto) 1.4 0.4-5.4 10 ^3/uL Monocytes # (Auto) 0.6 0-1.3 10 ^3/uL Eosinophils # (Auto) 0.1 0-0.8 10 ^3/uL Basophils # (Auto) 0 0-0.2 10 ^3/uL Nucleated Red Blood Cells 0.0 % Sodium Level 132 #L 136-145 mmol/L Potassium Level 4.2 3.5-5.1 mmol/L Chloride Level 99 98-107 mmol/L Carbon Dioxide Level 25 20-31 mmol/L Anion Gap 8 5-15 Blood Urea Nitrogen 12 9-23 mg/dL Creatinine 0.86 0.700-1.30 mg/dL Glomerular Filtration Rate Calc 103 >90 mL/min BUN/Creatinine Ratio 14.0 10.0-20.0 Serum Glucose 406 #*H 74-106 mg/dL Calcium Level 9.3 8.7-10.4 mg/dL Time of 1ST Reevaluation: 23:50 Reevaluation 1ST: Unchanged Patient Education/Counseling: Diagnosis, Treatment, Prognosis, Need For Follow Up Family Education/Counseling: No Family Present Departure 1 Departure Time of Disposition: 00:34 Impression: Primary Impression: Cellulitis Qualified Codes: L03.115 - Cellulitis of right lower limb Additional Impressions: Uncontrolled diabetes mellitus Qualified Codes: E10.65 - Type 1 diabetes mellitus with hyperglycemia Noncompliance Disposition: ADMITTED INPATIENT Admit to: Tele Condition: Serious Discharged With: Self Critical Care Note Critical Care Time?: Yes (55 min-critical care time only) Critical care comment: due to concerns for deterioration of patient's condition, the care required my highest level of attention and readiness. i assessed the patient's condition, revieweed relavent documents, communicated with medical personnel, ordered the proper tests and treatments, reassed fro results and response to treatments, spoke to family and consultants and formulated a plan of care Stability Stability form required: ALESIA Burdick MD Nov 09, 2024 23:33
[2024-11-10] VITALS (7 sets, daily range): BP systolic 113–137; BP diastolic 77–84; PULSE 72–91; RESP 16–18; TEMP 91–98.1; O2SAT 97–100
[2024-11-10 00:08] LABS: Eosinophils # (auto) 0.1 10 ^3/uL (0-0.8); Lymphocytes # (auto) 1.4 10 ^3/uL (0.4-5.4); Monocytes # (auto) 0.6 10 ^3/uL (0-1.3); Red Cell Distribution Width 16.7 % (11.8-14.3); White Blood Cell 7.2 10^3/uL (4.4-10.8)
--- NOTE | 2024-11-10 00:08 | DVH ---
CLINICAL INFORMATION: 54 years old, Male; r/o osteomyelitis. TECHNIQUE: 2 views of the right foot COMPARISON: XY R FOOT 3 VIEW XRAY on DOS: 11/02/24 Findings/ IMPRESSION: No acute fracture or dislocation. Status post amputation of the 1st digit. Heavy vascular calcificati on. Mild diffuse soft tissue edema. No destructive or erosive osseous lesions.
[2024-11-10 00:10] LABS: Basophils # (auto) 0 10 ^3/uL (0-0.2); Basophils % (auto) 0.4 % (0.0-2.0); Hematocrit 33.3 % (41.0-53.0); Hemoglobin 10.5 g/dL (13.5-17.5); Lymphocytes % (auto) 18.8 % (10.0-50.0); Mean Corpuscular Hemoglobin 26.4 pg (28.0-32.0); Mean Corpuscular Hgb Conc. 31.6 g/dL (32.0-36.0); Mean Corpuscular Volume 83.5 fL (80.0-100.0); Monocytes % (auto) 8.1 % (0.0-12.0); Neutrophils # (auto) 5.2 10 ^3/uL (1.6-8.6); Neutrophils % (auto) 71.7 % (37.0-80.0); Platelet Count (auto) 508 10^3/uL (140-450); Red Blood Cells 3.99 10^6/uL (4.5-5.90)
[2024-11-10 00:17] LABS: Chloride 99 mmol/L (98-107); Potassium 4.2 mmol/L (3.5-5.1)
[2024-11-10 00:18] LABS: Anion Gap 8 (5-15); Carbon Dioxide 25 mmol/L (20-31)
[2024-11-10 00:19] LABS: Calcium 9.3 mg/dL (8.7-10.4)
[2024-11-10 00:24] LABS: Blood Urea Nitrogen 12 mg/dL (9-23)
[2024-11-10 00:27] LABS: Sodium 132 mmol/L (136-145)
[2024-11-10 00:28] LABS: Glucose 406 mg/dL (74-106)
[2024-11-10] MEDS ORDERED: ONDANSETRON HCL 4 MG/2 ML VIAL IV PRN ×2 (01:45→02:00)
[2024-11-10] MEDS: SILVER SULFADIAZINE 1 % TOPICAL CREAM 50GM TOP ONE (01:45)
[2024-11-10] MEDS ORDERED: HYDROcodone-ACET 5/325MG TAB PO PRN (01:45)
[2024-11-10] MEDS ORDERED: ACETAMINOPHEN 325 MG TAB PO PRN ×2 (01:45→02:00)
[2024-11-10] MEDS ORDERED: TEMAZEPAM 15 MG CAP PO PRN (01:45)
[2024-11-10] MEDS ORDERED: CLINDAMYCIN 600MG IV 50 ML IV SCH (01:45)
[2024-11-10] MEDS ORDERED: DEXTROSE (50%) 50ML SYRG IV PRN ×3 (01:45→08:15)
[2024-11-10] MEDS: cefTRIAXone 1GM/50ML D5W 50 ML IV ONE (02:14)
[2024-11-10] MEDS: InsuLIN REG 1unit/0.01ml Soln (100units/ml) SC ONE (03:20)
[2024-11-10] MEDS: HYDROcodone-ACET 5/325MG TAB PO PRN (03:20)
--- NOTE | 2024-11-10 03:31 | DVHHP2 ---
History of Present Illness Reason for Visit: Foot wound History of Present Illness 54 year old male presents for evaluation of right foot wound. Patient reports being recently discharged after being seen for right foot wound and sent home with antibiotics. He reports a one day history of noticing increased swelling in mild redness to the right foot. He has also noticed some purulent discharge from the wound. Reports occasional chills. Denies any other acute complaints at the moment. Past Medical History Hypertension, diabetes mellitus and CAD Past Surgical History Right great toe amputation Family History Noncontributory Smoke: No ALCOHOL: none Drugs: None Lives: with Family Review of Systems Review of Systems Review of systems are currently negative otherwise addressed in HPI. Allergies: Coded Allergies: NO KNOWN ALLERGIES (Unverified , 01/07/24) Medications Current Medications Medications Dose Ordered Sig/Gemma Route Start Time Stop Time Status Last Admin Dose Admin Aspirin 81 mg DAILY PO 11/10/24 10:00 Silver Sulfadiazine 1 applic DAILY TOP 11/10/24 10:00 Atorvastatin Calcium 40 mg HS PO 11/10/24 22:00 Insulin Human Regular IQ4HR SC 11/10/24 04:00 Dextrose 50 ml UD PRN IV 11/10/24 02:00 Ondansetron HCl 4 mg Q4HP PRN IV 11/10/24 02:00 Enoxaparin Sodium 40 mg DAILY SC 11/10/24 10:00 Ceftriaxone Sodium 50 ml @ 100 mls/hr DAILY@09 IV 11/11/24 09:00 Clindamycin Phosphate 50 ml @ 50 mls/hr Q8HR IV 11/10/24 06:00 Metoprolol Succinate 25 mg DAILY PO 11/10/24 10:00 Clopidogrel Bisulfate 75 mg DAILY PO 11/10/24 10:00 Acetaminophen/ Hydrocodone Bitart 1 tab Q4HP PRN PO 11/10/24 02:00 11/10/24 03:20 1 TAB Temazepam 15 mg QHSP PRN PO 11/10/24 02:00 Acetaminophen 650 mg Q6HP PRN PO 11/10/24 02:00 Diagnostic Test (Pha) 1 strip IQ4HR 11/10/24 04:00 Exam Vital Signs Vital Signs Date Time Temp Pulse Resp B/P (MAP) Pulse Ox O2 Delivery O2 Flow Rate FiO2 11/09/24 23:11 98.9 100 19 111/82 (92) 100 Exam Gen: 54-year-old male in mild distress Skin: Warm, dry, normal color and texture, no rash. HEENT: Normocephalic atraumatic, mucous membranes moist and pink. Neck: Cervical and supraclavicular nodes normal without enlargement, trachea is midline, thyroid gland is normal without masses. Pulmonary: Clear to auscultation and percussion bilaterally. Cardiac: Regular rate and rhythm. No murmur Abdomen: Soft, nontender, nondistended, bowel sounds present all 4 quadrants, no guarding, no rigidity, no organomegaly. Extremities: No cyanosis, clubbing, right foot with multiple wounds with mild cellulitis Neuro: Cranial nerves II through XII grossly intact, normal affect and speech, no focal motor deficits. Labs/Xrays ORDERING PHYSICIAN: ALESIA BOO MD PROCEDURE(s): RFOT2 - R FOOT 2 VIEW XRAY REASON: r/o osteomyelitis ORDER NUMBER(s): [id number], ACCESSION NUMBER(s): [id number] CLINICAL INFORMATION: 54 years old, Male; r/o osteomyelitis. TECHNIQUE: 2 views of the right foot COMPARISON: XY R FOOT 3 VIEW XRAY on DOS: 11/02/24 Findings/ IMPRESSION: No acute fracture or dislocation. Status post amputation of the 1st digit. Heavy vascular calcification. Mild diffuse soft tissue edema. No destructive or erosive osseous lesions. Labs Test 11/09/24 23:49 Range/Units White Blood Count 7.2 4.4-10.8 10^3/uL Red Blood Count 3.99 L 4.5-5.90 10^6/uL Hemoglobin 10.5 L 13.5-17.5 g/dL Hematocrit 33.3 L 41.0-53.0 % Mean Corpuscular Volume 83.5 80.0-100.0 fL Mean Corpuscular Hemoglobin 26.4 L 28.0-32.0 pg Mean Corpuscular Hemoglobin Concent 31.6 L 32.0-36.0 g/dL Red Cell Distribution Width 16.7 H 11.8-14.3 % Platelet Count 508 H 140-450 10^3/uL Mean Platelet Volume 7.2 6.9-10.8 fL Neutrophils (%) (Auto) 71.7 37.0-80.0 % Lymphocytes (%) (Auto) 18.8 10.0-50.0 % Monocytes (%) (Auto) 8.1 0.0-12.0 % Eosinophils (%) (Auto) 1.0 0.0-7.0 % Basophils (%) (Auto) 0.4 0.0-2.0 % Neutrophils # (Auto) 5.2 1.6-8.6 10 ^3/uL Lymphocytes # (Auto) 1.4 0.4-5.4 10 ^3/uL Monocytes # (Auto) 0.6 0-1.3 10 ^3/uL Eosinophils # (Auto) 0.1 0-0.8 10 ^3/uL Basophils # (Auto) 0 0-0.2 10 ^3/uL Nucleated Red Blood Cells 0.0 % Sodium Level 132 #L 136-145 mmol/L Potassium Level 4.2 3.5-5.1 mmol/L Chloride Level 99 98-107 mmol/L Carbon Dioxide Level 25 20-31 mmol/L Anion Gap 8 5-15 Blood Urea Nitrogen 12 9-23 mg/dL Creatinine 0.86 0.700-1.30 mg/dL Glomerular Filtration Rate Calc 103 >90 mL/min BUN/Creatinine Ratio 14.0 10.0-20.0 Serum Glucose 406 #*H 74-106 mg/dL Calcium Level 9.3 8.7-10.4 mg/dL Assessment/Plan Assessment/Plan Assessment Right foot nonhealing wounds Cellulitis Uncontrolled diabetes mellitus Hypertension Plan Admit the patient to [facility] to the hospitalist Wound consult Rocephin/clindamycin Resume home medications Continue treatment per orders. Plan discussed with: Patient My Orders Orders - KYLIE AVILA AGACNP Procedure Category Date Status Time Wound Culture W/ Gs TALON 11/10/24 In Process 01:35 * [employer] Tech CONS 11/10/24 Transmitted Consult Aspirin Tablet PHA 11/10/24 In Process 10:00 * Wound Consult CONS 11/10/24 Transmitted Silver Sulfadiazine PHA 11/10/24 In Process (Silvadene) 10:00 Atorvastatin (Lipitor) PHA 11/10/24 In Process 22:00 Consistent DIET 11/10/24 Transmitted Carb(Ccho)Diabetes Breakfast Admit ADMIT 11/10/24 Transmitted 01:37 Complete Blood Count LAB 11/11/24 Verified 04:00 Comprehensive LAB 11/11/24 Verified Metabolic Panel 04:00 Condition: Stable LILA 11/10/24 In Process 01:37 Bedrest With Bathroom LILA 11/10/24 In Process Privileg 01:37 Insulin R (Human) PHA 11/10/24 In Process (Insulin R) 04:00 Dextrose 50% Syringe PHA 11/10/24 In Process 02:00 Ondansetron Hcl PHA 11/10/24 In Process (Zofran) 02:00 Enoxaparin Sodium PHA 11/10/24 In Process (Lovenox) 10:00 Clindamycin 600mg Iv PHA 11/10/24 In Process (Cleocin Iv) 06:00 Metoprolol Xl PHA 11/10/24 In Process Succinate (Toprol Xl) 10:00 Clopidogrel Bisulfate PHA 11/10/24 In Process (Plavix) 10:00 Hydrocodone-Acet PHA 11/10/24 In Process 5/325mg Tab ([place] 02:00 Temazepam (Restoril) PHA 11/10/24 In Process 02:00 Acetaminophen Tablet PHA 11/10/24 In Process (Tylenol Tablet) 02:00 Glucose Blood PHA 11/10/24 In Process (Accu-Chek Comfort 04:00 Ceftriaxone 1gm/50ml PHA 11/11/24 In Process D5w (Rocephin) 09:00 Date of Service: Nov 10, 2024 Billing Provider: KYLIE AVILA Common Visit Codes: [id number] INP/OBS CARE (HIGH) KYLIE AVILA Nov 10, 2024 03:31
[2024-11-10] MEDS: InsuLIN REG 1unit/0.01ml Soln (100units/ml) SC SCH ×3 (04:00→22:17)
[2024-11-10] MEDS ORDERED: ACCU-CHEK COMFORT CURVE STRIP VI SCH (04:00)
[2024-11-10] MEDS: ACCU-CHEK COMFORT CURVE STRIP VI SCH ×2 (04:00→11:30)
[2024-11-10] MEDS ORDERED: InsuLIN REG 1unit/0.01ml Soln (100units/ml) SC SCH (04:00)
[2024-11-10] MEDS: CLINDAMYCIN 600MG IV 50 ML IV SCH (06:22)
[2024-11-10 09:00] LABS: Amphetamine Screen, Urine Neg (NEGATIVE); Opiate Scree,Urine Neg (NEGATIVE)
[2024-11-10] MEDS ORDERED: cefTRIAXone 1GM/50ML D5W 50 ML IV SCH (09:00)
[2024-11-10 09:01] LABS: Barbiturate Scree,Urine Neg (NEGATIVE); Benzodiazephine Screen, Urine Neg (NEGATIVE); Cannabinoid Screen, Urine Neg (NEGATIVE); Cocaine Screen, Urine Neg (NEGATIVE); Phencyclidine Screen, Urine Neg (NEGATIVE)
[2024-11-10] MEDS: ASPirin 81 mg TAB PO SCH (10:00)
[2024-11-10] MEDS ORDERED: METOPROLOL SUCCINATE XL 50 MG TAB PO SCH (10:00)
[2024-11-10] MEDS: METOPROLOL SUCCINATE XL 50 MG TAB PO SCH (10:00)
[2024-11-10] MEDS: SILVER SULFADIAZINE 1 % TOPICAL CREAM 50GM TOP SCH (10:00)
[2024-11-10] MEDS: CLOPIDOGREL BISULFATE 75 MG TAB PO SCH (10:00)
[2024-11-10] MEDS ORDERED: ENOXAPARIN SOD 40 MG/0.4 ML SYRINGE SC SCH (10:00)
[2024-11-10] MEDS ORDERED: CLOPIDOGREL BISULFATE 75 MG TAB PO SCH (10:00)
[2024-11-10] MEDS: ENOXAPARIN SOD 40 MG/0.4 ML SYRINGE SC SCH (10:00)
[2024-11-10 10:26] LABS: Hepatitis B Surface Antibody Positive (Negative); Hepatitis B Surface Antigen Negative (Negative); Hepatitis C Antibody Negative (Negative)
[2024-11-10] MEDS ORDERED: AMPICILLIN & SULBACTAM SODIUM 3 GM in SODIUM CHL 0.9% 100 ML IV SCH (14:00)
--- NOTE | 2024-11-10 16:24 | DVHPNRES ---
Progress Note Date Seen: Nov 10, 2024 Resident Creating Document: REBEKAH HARPER RESIDENT Medical Necessity Reason Pt with a Central, PICC or Fol: No Subjective Review of Systems This is a 54 year old Male with past medical history of hypertension, coronary artery disease, S/P amputation of left great toe , type 2 diabetes mellitus, hyperlipidemia, presented to the ED with a swelling and multiple infected wound in the left foot . He has uncontrolled type 2 diabetes mellitus and recently discharged from the [facility] and was treated for diabetic foot ulcer. Patient was seen and examined on the bedside. He is alert, oriented x3. complaint of pain and swelling of the left foot. No other active complaint. Constitutional: No: Fever, Chills, Sweats, Weakness, Malaise, Other Eyes: No: Pain, Vision change, Conjunctivae inflammation, Eyelid inflammation, Other, Redness ENT: No: Ear pain, Ear discharge, Nose pain, Nose discharge, Nose congestion, Mouth pain, Mouth swelling, Throat pain, Throat swelling, Other Respiratory: Shortness of breath, improving No: Cough, Dry,Wheezing, Hemoptysis, Pleuritic Pain, Sputum, Wheezing, Other Cardiovascular: No: Chest Pain, Palpitations, Orthopnea, Paroxysmal Noc. Dyspnea, Edema, Lt Headedness, Other Gastrointestinal: No: Nausea, Vomiting, Abdominal Pain, Diarrhea, Constipation, Melena, Hematochezia, Other Musculoskeletal: Foot pain, No: other, neck pain, shoulder pain, arm pain, back pain, hand pain, leg pain. Neurological:; No: Weakness, Numbness, Incoordination, Change in speech, Confusion, Seizures Objective vital signs Vital Sign Date Time Temp Pulse Resp B/P (MAP) Pulse Ox O2 Delivery O2 Flow Rate FiO2 11/10/24 13:27 98.2 85 16 135/50 (78) 97 98.2 11/10/24 02:30 Room Air* 0 21 Total Intake and Output 11/09/24 11/09/24 11/10/24 15:00 23:00 07:00 Intake Total 50 ml Balance 50 ml medications Current Medications Medications Dose Ordered Sig/Gemma Route Start Time Stop Time Status Last Admin Dose Admin Aspirin 81 mg DAILY PO 11/10/24 10:00 Silver Sulfadiazine 1 applic DAILY TOP 11/10/24 10:00 Atorvastatin Calcium 40 mg HS PO 11/10/24 22:00 Ondansetron HCl 4 mg Q4HP PRN IV 11/10/24 02:00 Enoxaparin Sodium 40 mg DAILY SC 11/10/24 10:00 Metoprolol Succinate 25 mg DAILY PO 11/10/24 10:00 Clopidogrel Bisulfate 75 mg DAILY PO 11/10/24 10:00 Acetaminophen/ Hydrocodone Bitart 1 tab Q4HP PRN PO 11/10/24 02:00 11/10/24 03:20 1 TAB Temazepam 15 mg QHSP PRN PO 11/10/24 02:00 Acetaminophen 650 mg Q6HP PRN PO 11/10/24 02:00 Insulin Glargine 20 units QAM SC 11/11/24 07:00 Diagnostic Test (Pha) 1 strip ACHS 11/10/24 11:30 Insulin Human Regular HS SC 11/10/24 22:00 Insulin Human Regular AC SC 11/10/24 11:30 Dextrose 50 ml UD PRN IV 11/10/24 08:15 Doxycycline Monohydrate 100 mg Q12HR PO 11/10/24 22:00 Ampicillin Sodium/ Sulbactam Sodium 3 gm/Sodium Chloride 100 ml @ 100 mls/hr Q6H IV 11/10/24 14:00 Examination Physical examination: General Appearance: Alert, Oriented X3, Cooperative, No acute distress HEENT: Atraumatic, PERRLA, EOMI, Mucous membrane moist/pink Respiratory: Clear to auscultation, Normal air movement Cardiovascular: Regular rate, Normal S1, Normal S2, No murmurs, no chest wall tenderness Abdominal: Normal bowel sounds, Soft, No tenderness, No hepatospenomegaly, No masses Extremities: Swelling and multiple excoriation on the left foot, dorsalis pedis and posterior tibial pulsation are feeble, No clubbing, No cyanosis, No tenderness/swelling Skin: No rashes, No breakdown, No significant lesion Neuro: Normal gait, Normal speech, Strength at 5/5 X4 ext, Normal tone, Sensation intact, Cranial nerves 3-12 NL, Reflexes 2+ Psych/Mental Status: Mental status NL, Mood NL laboratory and microbiology Laboratory Tests 11/09/24 23:49 Test 11/09/24 23:49 Range/Units Serum Glucose 406 #*H 74-106 mg/dL Labs and/or images reviewed: Labs reviewed by me, Image(s) reviewed by me Problem List/Assessment/Plan Problem List/Assessment/Plan Assessment and plan: # Possible Lt diabetic foot # Possible cellulitis of the Lt foot # S/P amputation of the Lt great toe # Uncontrolled type 2 diabetes mellitus with hyperglycemia - left foot x-ray reviewed no acute fracture or dislocation, status post amputation of the 1st disease heavy vascular calcification and mild diffuse soft tissue edema without any destructive or erosive osseous lesion. - Wound c/s on 11/02/24 revealed MRSA - CRP is elevated and pending ESR - Oredered CT scan of the left foot without contrast - IV cefepime 1 g b.i.d. and IV vancomycin as per pharmacy - Lantus 20 units at q.a.m. and moderate sliding scale of insulin - Consulted Podiatry # Hypertensive heart disease - Coronary angiogram on 09/30 revealed chronically occluded right coronary artery and failed PTCA and Cardiology recommended aggressive medical therapy - Echo on 09/30 demonstrated EF 60% with grade 1 diastolic dysfunction - Continue aspirin 81 mg daily, Plavix 75 mg daily, metoprolol succinate 25 mg daily, atorvastatin 40 mg at HS # history of peripheral neuropathy and lumbar spinal stenosis - continue gabapentin 300 mg PO TID. # Balanitis - Silver sulfadiazine ointment applied topically daily # PUD prophylaxis - Pepcid 20 mg po daily # DVT prophylaxis - patient is on Lovenox 40 mg sc daily Goal of care discussed with the patient for more than 20 minutes full code plan discussed with Dr. Fields Plan discussed with: Patient, Other My Orders My Orders Orders - REBEKAH HARPER RESIDENT Procedure Category Date Status Time Insulin Lantus PHA 11/11/24 In Process (Glargine) (Lantus) 07:00 Glucose Blood PHA 11/10/24 In Process (Accu-Chek Comfort 11:30 Insulin R (Human) PHA 11/10/24 In Process (Insulin R) 22:00 Insulin R (Human) PHA 11/10/24 In Process (Insulin R) 11:30 Dextrose 50% Syringe PHA 11/10/24 In Process 08:15 Urinalysis LAB 11/10/24 Uncollected 08:07 Communication Order ORDERS 11/10/24 Transmitted 13:38 Doxycycline Tablet PHA 11/10/24 In Process (Vibramycin Tablet) 22:00 Ampicillin & PHA 11/10/24 In Process Sulbactam Sodium 14:00 Erythrocyte LAB 11/10/24 Logged Sedimentation Rate 13:43 Date of Service: Nov 10, 2024 Billing Provider: JANET MACEDO MD Common Visit Codes: [id number] INP/OBS CARE(HIGH) REBEKAH HARPER RESIDENT Nov 10, 2024 16:24 JANET MACEDO MD Nov 12, 2024 00:27
[2024-11-10] MEDS ORDERED: VANCOMYCIN PER PHARMACY 0 MG IV SCH (16:45)
[2024-11-10 17:14] LABS: Erythrocyte Sedimentation Rate 84 mm/hr (0-20)
--- NOTE | 2024-11-10 18:14 | DVH ---
Procedure: CT CT R FOOT WO CONTRAST 11/10/2024 04:53 PM Indication: Swellng of the rt foot Comparison Study: Radiograph dated 11/09/2024. Technique: Axial images of the right foot were obtained and reformatted in coronal and sagittal plane s. All CT scans at this medical facility are performed using dose modulation techniques as appropriate t o a performed exam including the following: Automated exposure control was utilized; adjustment of th e MA and/or KV according to patient size; and use of iterative reconstruction technique. CT Dose: CTDI volume is 7.8 mGy. Dose-length product is 458 mGy*cm FINDINGS: Suboptimal motion degraded study. Bones: Great toe amputation at the level MTP joint level . Irregularity of the 1st metatarsal head w ith subcentimeter subchondral lucency evaluation limited motion sesamoids are grossly unremarkable. Soft tissues: Moderate dorsal subcutaneous edema noted. No drainable fluid collection is seen. No sof t tissue air. Atherosclerotic calcification is noted. IMPRESSION: 1. Suboptimal motion degraded study. 2. Cellulitis with no definite drainable fluid collection or soft tissue gas in this limited unenhanc ed study. 3. Great toe amputation at the level MTP joint. There is irregularity of the 1st metatarsal head with underlying subcentimeter subchondral lucency that may represent degenerative cysts or lytic lesion. Consider further evaluation with MRI or 3-phase bone scan if there is clinical concern for osteomyeli tis.
[2024-11-10 18:24] LABS: Urine Bacteria None Seen /hpf (None Seen)
--- NOTE | 2024-11-10 18:27 | DVH ---
Procedure: CT CT L FOOT WO CONTRAST 11/10/2024 04:53 PM Indication: Lt diabetic foot ulcer Comparison Study: None. Technique: Axial images of the left foot were obtained and reformatted in coronal and sagittal planes . All CT scans at this medical facility are performed using dose modulation techniques as appropriate t o a performed exam including the following: Automated exposure control was utilized; adjustment of th e MA and/or KV according to patient size; and use of iterative reconstruction technique. CT Dose: CTDI volume is 7.8 mGy. Dose-length product is 458 mGy*cm FINDINGS: Suboptimal motion degraded study. Bones: No acute fracture or dislocation. Joint spaces are maintained. Soft tissues: Mild dorsal subcutaneous edema. Vascular calcification noted. No drainable fluid cate ection. IMPRESSION: 1. No acute osseous abnormality. 2. Mild dorsal subcutaneous edema. 3. Peripheral arterial disease.
[2024-11-10 18:45] LABS: Urine Blood Negative /uL (Negative); Urine Clarity Clear (Clear); Urine Color Light-Yellow (Yellow); Urine Protein, UAD Negative (Negative); Urine Specific Gravity 1.017 (1.001-1.035); Urine Squamous Epithelial Cell None Seen /hpf (<5); Urine Urobilinogen Normal (Negative); Urine WBC 1 /HPF (0-3)
[2024-11-10] MEDS: VANCOMYCIN 1GM/250ML KIT 250 ML IV SCH (21:09)
[2024-11-10] MEDS ORDERED: DOXYCYCLINE 100 MG TAB/CAP PO SCH (22:00)
[2024-11-10] MEDS ORDERED: ATORVASTATIN 20 MG TAB PO SCH (22:00)
[2024-11-10] MEDS: CEFEPIME 1GM/ 50ML 50 ML IV SCH (22:14)
[2024-11-10] MEDS: ATORVASTATIN 20 MG TAB PO SCH (22:34)
[2024-11-10] MEDS: TEMAZEPAM 15 MG CAP PO PRN (23:46)
[2024-11-11] VITALS (7 sets, daily range): BP systolic 104–127; BP diastolic 65–81; PULSE 71–85; RESP 17–20; TEMP 97.6–98.6; O2SAT 97–100
[2024-11-11 05:40] LABS: Basophils # (auto) 0 10 ^3/uL (0-0.2); Basophils % (auto) 0.5 % (0.0-2.0); Eosinophils # (auto) 0.1 10 ^3/uL (0-0.8); Hemoglobin 10.6 g/dL (13.5-17.5); Lymphocytes # (auto) 1.3 10 ^3/uL (0.4-5.4); Monocytes # (auto) 0.5 10 ^3/uL (0-1.3); Neutrophils # (auto) 3.9 10 ^3/uL (1.6-8.6)
[2024-11-11 05:42] LABS: Eosinophils % (auto) 1.6 % (0.0-7.0); Hematocrit 32.6 % (41.0-53.0); Mean Corpuscular Hemoglobin 26.4 pg (28.0-32.0); Mean Corpuscular Hgb Conc. 32.5 g/dL (32.0-36.0); Mean Corpuscular Volume 81.2 fL (80.0-100.0); Monocytes % (auto) 8.4 % (0.0-12.0); Neutrophils % (auto) 67.5 % (37.0-80.0); Nucleated Red Blood Cells % 0.1 %; Platelet Count (auto) 503 10^3/uL (140-450); Red Blood Cells 4.01 10^6/uL (4.5-5.90); Red Cell Distribution Width 16.8 % (11.8-14.3); White Blood Cell 5.7 10^3/uL (4.4-10.8)
[2024-11-11 05:55] LABS: Alanine Aminotransferase 18 U/L (7-40); Anion Gap 8 (5-15); BUN/Creatinine Ratio 16.2 (10.0-20.0); Blood Urea Nitrogen 11 mg/dL (9-23); Calcium 9.2 mg/dL (8.7-10.4); Carbon Dioxide 24 mmol/L (20-31); Chloride 102 mmol/L (98-107); Potassium 4.1 mmol/L (3.5-5.1)
[2024-11-11 05:56] LABS: Albumin 3.4 g/dL (3.2-4.8); Bilirubin, Total 0.3 mg/dL (0.2-1.0); Total Protein 6.3 g/dL (5.7-8.2)
[2024-11-11] MEDS: INSULIN LANTUS (GLARGINE) 1 /0.01ml (100units/ml) SC SCH (06:18)
[2024-11-11 06:23] LABS: Glucose 266 mg/dL (74-106); Sodium 134 mmol/L (136-145)
[2024-11-11 06:24] LABS: Alkaline Phosphatase 153 U/L (46-116); Aspartate Aminotransferase 10 U/L (13-40)
[2024-11-11] MEDS ORDERED: cefTRIAXone 1GM/50ML D5W 50 ML IV SCH (09:00)
--- NOTE | 2024-11-11 10:02 | DVH ---
CLINICAL INDICATION: 54 years old, Male; R/O OSTEO. COMPARISON: CT of the left foot performed on 11/10/2024 TECHNIQUE: Multiplanar, multisequence MRI of the left foot was performed without intravenous contrast . Contrast: None. INTERPRETATION: Bones: Patient is status post amputation of the great toe phalanges. No evidence of marrow replacing process to suggest osteomyelitis. There is a chronic deformity in the 1st metatarsal head with mild edema but no marrow replacement. No fracture. Joints/alignment: Hammertoe deformities. No abnormal alignment. Soft tissues: There is T2 hyperintensity within the intrinsic muscles of the foot. There is dorsal so ft tissue swelling. No large fluid collection. No high-grade tendon or ligament injury. IMPRESSION: 1. No evidence of osteomyelitis in the left foot. 2. Amputation of the great toe phalanges. 3. Dorsal soft tissue swelling which may reflect cellulitis. No large fluid collection. 4. Mild edema within the intrinsic muscles of the foot may reflect denervation or myositis.
[2024-11-11] MEDS: ASPirin 81 mg TAB PO SCH (11:19)
[2024-11-11] MEDS ORDERED: BACDST PO ×2 (12:04)
[2024-11-11] MEDS ORDERED: FAMO20TA10 PO ×2 (12:04)
--- NOTE | 2024-11-11 12:04 | DVHDSRES ---
Discharge Summary Date of Admission Resident Creating Document: REBEKAH HARPER RESIDENT Nov 10, 2024 at 01:37 Date of Discharge: Nov 11, 2024 Admitting Diagnosis Possible Right diabetic foot Possible cellulitis of the right foot Wounds: Multiple small dry wound present in the right foot Labs/Diagnostic Data: Laboratory Results Test 11/11/24 11:13 11/11/24 04:38 11/10/24 18:22 11/10/24 16:25 POC Glucose 270 mg/dl (70-106) White Blood Count 5.7 10^3/uL (4.4-10.8) Red Blood Count 4.01 10^6/uL (4.5-5.90) Hemoglobin 10.6 g/dL (13.5-17.5) Hematocrit 32.6 % (41.0-53.0) Mean Corpuscular Volume 81.2 fL (80.0-100.0) Mean Corpuscular Hemoglobin 26.4 pg (28.0-32.0) Mean Corpuscular Hemoglobin Concent 32.5 g/dL (32.0-36.0) Red Cell Distribution Width 16.8 % (11.8-14.3) Platelet Count 503 10^3/uL (140-450) Mean Platelet Volume 7.2 fL (6.9-10.8) Neutrophils (%) (Auto) 67.5 % (37.0-80.0) Lymphocytes (%) (Auto) 22.0 % (10.0-50.0) Monocytes (%) (Auto) 8.4 % (0.0-12.0) Eosinophils (%) (Auto) 1.6 % (0.0-7.0) Basophils (%) (Auto) 0.5 % (0.0-2.0) Neutrophils # (Auto) 3.9 10 ^3/uL (1.6-8.6) Lymphocytes # (Auto) 1.3 10 ^3/uL (0.4-5.4) Monocytes # (Auto) 0.5 10 ^3/uL (0-1.3) Eosinophils # (Auto) 0.1 10 ^3/uL (0-0.8) Basophils # (Auto) 0 10 ^3/uL (0-0.2) Nucleated Red Blood Cells 0.1 % Sodium Level 134 mmol/L (136-145) Potassium Level 4.1 mmol/L (3.5-5.1) Chloride Level 102 mmol/L (98-107) Carbon Dioxide Level 24 mmol/L (20-31) Anion Gap 8 (5-15) Blood Urea Nitrogen 11 mg/dL (9-23) Creatinine 0.68 mg/dL (0.700-1.30) Glomerular Filtration Rate Calc 110 mL/min (>90) BUN/Creatinine Ratio 16.2 (10.0-20.0) Serum Glucose 266 mg/dL (74-106) Calcium Level 9.2 mg/dL (8.7-10.4) Total Bilirubin 0.3 mg/dL (0.2-1.0) Aspartate Amino Transferase (AST) 10 U/L (13-40) Alanine Aminotransferase (ALT) 18 U/L (7-40) Alkaline Phosphatase 153 U/L (46-116) Total Protein 6.3 g/dL (5.7-8.2) Albumin 3.4 g/dL (3.2-4.8) Urine Color Light-yellow (Yellow) Urine Clarity Clear (Clear) Urine pH 7.0 (5.0-9.0) Urine Specific [place] 1.017 (1.001-1.035) Urine Protein Negative (Negative) Urine Ketones Negative (Negative) Urine Blood Negative /uL (Negative) Urine Nitrite Negative (Negative) Urine Bilirubin Negative (Negative) Urine Urobilinogen Normal mg/dL (Negative) Urine Leukocyte Esterase 1+ /uL (Negative) Urine RBC None seen /hpf (0 - 3) Urine Microscopic WBC 1 /HPF (0-3) Urine Squamous Epithelial Cells None seen /hpf (<5) Urine Bacteria None seen /hpf (None Seen) Urine Glucose 4+ mg/dL (Normal) Erythrocyte Sedimentation Rate 84 mm/hr (0-20) Test 11/10/24 14:54 11/10/24 08:21 11/10/24 04:52 C-Reactive Protein High Sensitivity 6.42 mg/dL (<1.0) Urine Opiates Screen Neg (NEGATIVE) Urine Fentanyl Screen Neg (NEGATIVE) Urine Barbiturates Screen Neg (NEGATIVE) Urine Phencyclidine Screen Neg (NEGATIVE) Urine Amphetamines Screen Neg (NEGATIVE) Urine Benzodiazepines Screen Neg (NEGATIVE) Urine Cocaine Screen Neg (NEGATIVE) Urine Cannabinoids Screen Neg (NEGATIVE) Hepatitis B Surface Antigen Negative (Negative) Hepatitis B Surface Antibody Positive (Negative) Hepatitis C Antibody Negative (Negative) Other Laboratory Tests 11/11/24 04:38 Brief Hx & Hospital Course: This is a 54 year old Male with past medical history of hypertension, coronary artery disease, S/P amputation of Rt great toe , type 2 diabetes mellitus, hyperlipidemia, presented to the ED with a swelling and multiple infected wound in the left foot . He has uncontrolled type 2 diabetes mellitus and recently discharged from the [facility] and was treated for diabetic foot ulcer. Hospital course: Initial x-ray of the right foot showed no acute fracture or dislocation, status post amputation of the 1st digit, heavy vascular calcification, mild soft diffuse soft tissue edema and no destructive or erosive osseous lesion. CT of Rt foot demonstrated Cellulitis with no definite drainable fluid collection or soft tissue gas and great toe amputation at the level MTP joint. There is irregularity of the 1st metatarsal head with underlying subcentimeter subchondral lucency that may represent degenerative cysts or lytic lesion. Podiatry was also on board and recommended MRI of Rt foot excluded the possibility of osteomyelitis. wound culture from right foot revealed MRSA which was sensitive to vancomycin, linezolid. patient was treated with IV vancomycin as per pharmacy and IV cefepime 1 g 12 hourly. was controlled with Lantus 22 units at q.a.m. and moderate sliding scale of insulin patient was counseled regarding the importance of blood sugar control and medication adherence. Discharge plan was discussed with the patient and all questions were answered. Patient is being discharged to home. Discharge Diagnosis: # Possible rt diabetic foot # Possible cellulitis of the rt foot # S/P amputation of the rt great toe # Ruled out osteomyelitis # Uncontrolled type 2 diabetes mellitus with hyperglycemia # Hypertensive heart disease # History of peripheral neuropathy and lumbar spinal stenosis # Balanitis Discharge Plan: Disposition: Home Medications : Bactrim DS b.i.d. for 10 days, mupirocin 2% ointment apply each nostril b.i.d. for 10 days, famotidine 20 mg b.i.d. for 30 days and continue home medications Follow up: PCP in 1 week Podiatry in 1 week Consults/Reason for consult Podiatry was consulted Operations or Procedures CLINICAL INFORMATION: 54 years old, Male; r/o osteomyelitis. TECHNIQUE: 2 views of the right foot COMPARISON: XY R FOOT 3 VIEW XRAY on DOS: 1/26/25 Findings/ IMPRESSION: No acute fracture or dislocation. Status post amputation of the 1st digit. Heavy vascular calcification. Mild diffuse soft tissue edema. No destructive or erosive osseous lesions. Procedure: CT CT R FOOT WO CONTRAST 11/10/2024 04:53 PM Indication: Swellng of the rt foot Comparison Study: Radiograph dated 11/09/2024. Technique: Axial images of the right foot were obtained and reformatted in coronal and sagittal planes. All CT scans at this medical facility are performed using dose modulation techniques as appropriate to a performed exam including the following: Automated exposure control was utilized; adjustment of the MA and/or KV according to patient size; and use of iterative reconstruction technique. CT Dose: CTDI volume is 7.8 mGy. Dose-length product is 458 mGy*cm FINDINGS: Suboptimal motion degraded study. Bones: Great toe amputation at the level MTP joint level . Irregularity of the 1st metatarsal head with subcentimeter subchondral lucency evaluation limited motion sesamoids are grossly unremarkable. Soft tissues: Moderate dorsal subcutaneous edema noted. No drainable fluid collection is seen. No soft tissue air. Atherosclerotic calcification is noted. IMPRESSION: 1. Suboptimal motion degraded study. 2. Cellulitis with no definite drainable fluid collection or soft tissue gas in this limited unenhanced study. 3. Great toe amputation at the level MTP joint. There is irregularity of the 1st metatarsal head with underlying subcentimeter subchondral lucency that may represent degenerative cysts or lytic lesion. Consider further evaluation with MRI or 3-phase bone scan if there is clinical concern for osteomyelitis. CLINICAL INDICATION: 54 years old, Male; R/O OSTEO. COMPARISON: CT of the left foot performed on 11/10/2024 TECHNIQUE: Multiplanar, multisequence MRI of the left foot was performed without intravenous contrast. Contrast: None. INTERPRETATION: Bones: Patient is status post amputation of the great toe phalanges. No evidence of marrow replacing process to suggest osteomyelitis. There is a chronic deformity in the 1st metatarsal head with mild edema but no marrow replacement. No fracture. Joints/alignment: Hammertoe deformities. No abnormal alignment. Soft tissues: There is T2 hyperintensity within the intrinsic muscles of the foot. There is dorsal soft tissue swelling. No large fluid collection. No high- grade tendon or ligament injury. IMPRESSION: 1. No evidence of osteomyelitis in the left foot. 2. Amputation of the great toe phalanges. 3. Dorsal soft tissue swelling which may reflect cellulitis. No large fluid collection. 4. Mild edema within the intrinsic muscles of the foot may reflect denervation or myositis. Condition at Discharge: Guarded Final Diagnosis/Problems List # Possible rt diabetic foot # Possible cellulitis of the rt foot # S/P amputation of the rt great toe # Ruled out osteomyelitis # Uncontrolled type 2 diabetes mellitus with hyperglycemia # Hypertensive heart disease # History of peripheral neuropathy and lumbar spinal stenosis # Balanitis Discharge Disposition: Home Discharge Instruct/Medications Diet: Consistent carbohydrate, Cardiac 2g Na,low cholest Activity: No Restrictions, As Tolerated Follow Up/Referral: Follow up with PCP in 1 week Follow up with Podiatry in 1 week. Medications: Bactrim DS bid for 10 days Discharge Statement: "Patient was advised to return to the ER or call 911 if any headaches, dizziness, shortness of breath, chest pain, abdominal pain, bleeding, fevers, or worsening of medical condition. Patient was counseled about treatment plan, medications, possible side effects, patientverbalized understanding. All questions were answered to the best of my ability. This discharge took greater then 30 minutes in planning, reviewing documentation, counseling the patient, and discussing with other team members." ASSESSMENT ASSESSMENT Assessment # Possible rt diabetic foot # Possible cellulitis of the rt foot # S/P amputation of the rt great toe # Uncontrolled type 2 diabetes mellitus with hyperglycemia # Hypertensive heart disease # History of peripheral neuropathy and lumbar spinal stenosis # Balanitis Date of Service: Nov 11, 2024 Billing Provider: JANET MACEDO MD Common Visit Codes: 13568-XUV/OBS DISCH DAY >30min REBEKAH HARPER RESIDENT Nov 11, 2024 12:04 JANET MACEDO MD Nov 12, 2024 15:45
--- NOTE | 2024-11-11 13:33 | DVHINCON2 ---
Date Seen: Nov 11, 2024 Reason for Consultation Foot wounds History of Present Illness 54 year old male presents for evaluation of right foot wound. Patient reports being recently discharged after being seen for right foot wound and sent home with antibiotics. He reports a one day history of noticing increased swelling in mild redness to the right foot. He has also noticed some purulent discharge from the wound. Reports occasional chills. Denies any other acute complaints at the moment. Past Medical History See H&P Past Surgical History H&P Family History: Cardiovascular disease G8 FATHER, , Age: 25 (HEART ATTACK) Allergies: Coded Allergies: NO KNOWN ALLERGIES (Unverified , 01/07/24) Home Meds Active Scripts Famotidine (PEPCID TABLET) 20 Mg Tb, 1 TAB PO BID for 30 Days, #60 TAB 5 Refills Prov:REBEKAH HARPER RESIDENT 11/11/24 Sulfamethoxazole W/Trimethopri (Bactrim Ds Tablet) 1 Tab Tb, 1 TAB PO BID for 10 Days, #20 TAB Prov:REBEKAH HARPER RESIDENT 11/11/24 Doxycycline Hyclate (Doxycycline Hyclate) 50 Mg Cap, 1 CAP PO BID for 10 Days, #20 CAP Prov:CESAR FRANCO [facility] 11/04/24 Povidone Iodine (Betadine Antiseptic Dry P) 5 % Aer, 5 % EX TID for 30 Days, #1 AER apply in the foot wounds Prov:CESAR FRANCO [facility] 11/04/24 Mupirocin Calcium (Topical) (MUPIROCIN) 2 % Cre, 2 % EX BID for 6 Days, #1 CRE apply in the penis areas Prov:CESAR FRANCO [facility] 11/04/24 Metoprolol Succinate (Metoprolol Succinate Er) 25 Mg Tab, 1 TAB PO DAILY for 30 Days, #30 TAB 1 Refill Prov:WANDER MERCER [facility] 09/15/24 Clopidogrel Bisulfate (Plavix) 75 Mg Tab, 1 TAB PO DAILY for 30 Days, #30 TAB 2 Refills Prov:WANDER MERCER RESIDENT 09/15/24 Atorvastatin Calcium (ATORVASTATIN CALCIUM) 20 Mg Tab, 40 MG PO DAILY@DINNER for 30 Days, #60 TAB 1 Refill Prov:WANDER MERCER RESIDENT 09/15/24 Aspirin (Aspirin Low Dose) 81 Mg Tab, 81 MG PO DAILY for 30 Days, #30 TAB 1 Refill Prov:WANDER MERCER RESIDENT 09/15/24 Ergocalciferol (VITAMIN D 34120 UNIT) 50,000 [place], [address] UNIT PO ONCE A WEEK, #6 CAP Prov:LAURAPOLINAHILARYJOSH RESIDENT 01/08/24 Reported Medications Alprazolam (Alprazolam) 1 Mg Tab, 1 TAB PO TID for anxiety, #90 TAB 11/03/24 Linaclotide Base (LINZESS) 290 Mcg Cap, 290 MCG OR, CAP 11/03/24 Hydrocodone-Acetaminophen (Hydrocodone Bitartrate/AC 5-325 mg) 1 Tab Tab, 1 TAB PO, TAB 09/13/24 Gabapentin (Gabapentin) 300 Mg Cap, 300 MG PO TID for 30 Days, MG 09/13/24 Nicotine (Nicoderm 21MG/24HR) 1 Patch Ph, 1 PATCH TOP DAILY, #28 PATCH 1 Refill 09/13/24 Omeprazole Magnesium (Omeprazole) 20 Mg Tab, 20 MG PO, TAB 09/13/24 Insulin Glargine-Yfgn (Insulin Glargine) 100 Unit/Ml Inj, 100 UNIT SC for DIABETES, INJ 01/19/24 Insulin Lispro (Humalog Kwikpen) 100 Unit/Ml Inj, 100 UNIT SC for DIABETES, INJ 01/19/24 Current Medications Current Medications Medications (Trade) Dose Ordered Sig/Gemma Route PRN Reason Start Time Stop Time Status Last Admin Atorvastatin Calcium (Lipitor) 40 mg HS PO 11/10/24 22:00 11/10/24 22:28 DC Ceftriaxone Sodium 50 ml @ 100 mls/hr DAILY@09 IV 11/11/24 09:00 11/10/24 13:44 DC Insulin Glargine (Lantus) 20 units QAM SC 11/11/24 07:00 11/11/24 09:14 DC 11/11/24 06:18 Insulin Human Regular (InsuLIN R) HS SC 11/10/24 22:00 11/10/24 22:17 Doxycycline Monohydrate (Vibramycin Tablet) 100 mg Q12HR PO 11/10/24 22:00 11/10/24 16:40 DC Ampicillin Sodium/ Sulbactam Sodium 3 gm/Sodium Chloride 100 ml @ 100 mls/hr Q6H IV 11/10/24 14:00 2/3/25 16:40 DC Cefepime HCl 50 ml @ 12.5 mls/hr Q12HR IV 11/10/24 22:00 11/10/24 22:14 Vancomycin HCl 0 ml @ 0 mls/hr UD IV 11/10/24 16:45 Vancomycin HCl 250 ml @ 250 mls/hr Q12H IV 11/10/24 21:00 11/11/24 10:12 Atorvastatin Calcium (Lipitor) 40 mg HS PO 11/10/24 22:28 11/10/24 22:34 Insulin Glargine (Lantus) 22 units QAM SC 11/12/24 07:00 Aspirin 81 mg DAILY PO 11/11/24 11:01 11/11/24 11:19 Vital Signs Vital Signs Date Time Temp Pulse Resp B/P (MAP) Pulse Ox O2 Delivery O2 Flow Rate FiO2 11/11/24 12:43 98.3 71 19 127/71 (89) 99 98.3 11/11/24 08:26 Room Air* 0 21 Physical Exam DERMATOLOGIC EXAM: - Skin is dry and cool to the touch dry bilaterally. - Nails 1-5 of the bilateral foot are thickened, discolored, dystrophic, and tender to palpate with subungual debris - Hair loss noted to bilateral feet - medial and lateral eschars on the right foot VASCULAR EXAM: - DP and PT pulses are palpable bilaterally. - SURFACE TO [employer] is brisk to all digits. - Feet are cool to touch compared to lower legs bilaterally. NEUROLOGIC EXAM: - Normal light touch sensation to the superficial peroneal, deep peroneal, sural, saphenous, and tibial nerve branches. - Protective sensation is diminished as tested with a 5.07 10g [place]uli[place] bilaterally. MUSCULOSKELETAL EXAM: - No gross deformities - Muscle strength is 5/5 and active motion is pain-free and symmetrical bilaterally - No pain or crepitation with passive range of motion bilaterally to all major pedal joints Labs/Diagnostic Data Labs Test 11/11/24 11:13 11/11/24 04:38 11/10/24 18:22 11/10/24 16:25 Range/Units POC Glucose 270 H 70-106 mg/dl White Blood Count 5.7 4.4-10.8 10^3/uL Red Blood Count 4.01 L 4.5-5.90 10^6/uL Hemoglobin 10.6 L 13.5-17.5 g/dL Hematocrit 32.6 L 41.0-53.0 % Mean Corpuscular Volume 81.2 80.0-100.0 fL Mean Corpuscular Hemoglobin 26.4 L 28.0-32.0 pg Mean Corpuscular Hemoglobin Concent 32.5 32.0-36.0 g/dL Red Cell Distribution Width 16.8 H 11.8-14.3 % Platelet Count 503 H 140-450 10^3/uL Mean Platelet Volume 7.2 6.9-10.8 fL Neutrophils (%) (Auto) 67.5 37.0-80.0 % Lymphocytes (%) (Auto) 22.0 10.0-50.0 % Monocytes (%) (Auto) 8.4 0.0-12.0 % Eosinophils (%) (Auto) 1.6 0.0-7.0 % Basophils (%) (Auto) 0.5 0.0-2.0 % Neutrophils # (Auto) 3.9 1.6-8.6 10 ^3/uL Lymphocytes # (Auto) 1.3 0.4-5.4 10 ^3/uL Monocytes # (Auto) 0.5 0-1.3 10 ^3/uL Eosinophils # (Auto) 0.1 0-0.8 10 ^3/uL Basophils # (Auto) 0 0-0.2 10 ^3/uL Nucleated Red Blood Cells 0.1 % Sodium Level 134 L 136-145 mmol/L Potassium Level 4.1 3.5-5.1 mmol/L Chloride Level 102 98-107 mmol/L Carbon Dioxide Level 24 20-31 mmol/L Anion Gap 8 5-15 Blood Urea Nitrogen 11 9-23 mg/dL Creatinine 0.68 L 0.700-1.30 mg/dL Glomerular Filtration Rate Calc 110 >90 mL/min BUN/Creatinine Ratio 16.2 10.0-20.0 Serum Glucose 266 #H 74-106 mg/dL Calcium Level 9.2 8.7-10.4 mg/dL Total Bilirubin 0.3 0.2-1.0 mg/dL Aspartate Amino Transferase (AST) 10 L 13-40 U/L Alanine Aminotransferase (ALT) 18 7-40 U/L Alkaline Phosphatase 153 H 46-116 U/L Total Protein 6.3 5.7-8.2 g/dL Albumin 3.4 3.2-4.8 g/dL Urine Color Light-yellow Yellow Urine Clarity Clear Clear Urine pH 7.0 5.0-9.0 Urine Specific [place] 1.017 1.001-1.035 Urine Protein Negative Negative Urine Ketones Negative Negative Urine Blood Negative Negative /uL Urine Nitrite Negative Negative Urine Bilirubin Negative Negative Urine Urobilinogen Normal Negative mg/dL Urine Leukocyte Esterase 1+ Negative /uL Urine RBC None seen 0 - 3 /hpf Urine Microscopic WBC 1 0-3 /HPF Urine Squamous Epithelial Cells None seen <5 /hpf Urine Bacteria None seen None Seen /hpf Urine Glucose 4+ H Normal mg/dL Erythrocyte Sedimentation Rate 84 H 0-20 mm/hr Test 11/10/24 14:54 11/10/24 08:21 11/10/24 04:52 Range/Units C-Reactive Protein High Sensitivity 6.42 H <1.0 mg/dL Urine Opiates Screen Neg NEGATIVE Urine Fentanyl Screen Neg NEGATIVE Urine Barbiturates Screen Neg NEGATIVE Urine Phencyclidine Screen Neg NEGATIVE Urine Amphetamines Screen Neg NEGATIVE Urine Benzodiazepines Screen Neg NEGATIVE Urine Cocaine Screen Neg NEGATIVE Urine Cannabinoids Screen Neg NEGATIVE Hepatitis B Surface Antigen Negative Negative Hepatitis B Surface Antibody Positive H Negative Hepatitis C Antibody Negative Negative Microbiology Date/Time Source Procedure Growth Status 11/11/24 03:55 Nose MRSA Screen - Final Methicillin Resistant S.aureus Complete Problems(with codes): (1) Generalized weakness (2) Penile ulcer (3) Ulcers of both lower extremities (4) Urinary retention (5) Anemia (6) Back pain (7) Colitis (8) Hyperglycemia (9) Hyponatremia (10) Acute coronary syndrome (11) Impaired gait (12) Elevated lactic acid level (13) Bilateral lower leg cellulitis (14) Hyperglycemia due to diabetes mellitus (15) Uncontrolled diabetes mellitus (16) Noncompliance (17) Cellulitis Plan/Recommendation ASSESSMENT: Patient is a 54 year old seen on the floor for a worsening ulcer PLAN: - The patients chart was reviewed, clinical findings were discussed with the patient, the etiologies of the conditions were discussed in detail, and a treatment plan was agreed to at this time, with both oral and written instructions provided. - reviewed advanced imaging - discussed that there is no surgical intervention needed at this point - the wounds again appear to be superficial with no obvious signs of drainage - MRI came back negative for osteo or abscess - recommend we just keep dry with Betadine - patient can follow up in 1 week All questions were answered and concerns addressed to the patient's satisfaction. The patient was given the phone number to the clinic and was told how to make contact with the clinic should any concerns or questions arise. Patient understands that if any questions or concerns arise prior to the next appointment, we should be contacted immediately. FOLLOW-UP: Continue to follow while inpatient Plan discussed with: Patient Date of Service: Nov 11, 2024 Billing Provider: GREGG VINSON DPM Common Visit Codes: CONSULT ONLY Consultation Codes: [id number] CONSULT <80MIN GREGG VINSON DPM Nov 11, 2024 13:33
[2024-11-11] MEDS ORDERED: MUPI2OIN2 EACHNOSTRI ×2 (15:48)
[2024-11-12] MEDS ORDERED: INSULIN LANTUS (GLARGINE) 1 /0.01ml (100units/ml) SC SCH (07:00)
== END 2024-11-11 18:46 | disposition home or self-care (01) | DRG 420 ==
LOC: ER 23:06 → OVERFLOW 11-10 01:37 → ER 11-10 01:42 → CENTRAL 11-10 15:45
PROVIDERS: ADMIT Student in an Organized Health Care Education/Training Program; ATTEND Student in an Organized Health Care Education/Training Program
DX: E11.621 Type 2 diabetes mellitus with foot ulcer (principal); L03.115 Cellulitis of right lower limb; I11.9 Hypertensive heart disease without heart failure; E11.42 Type 2 diabetes mellitus with diabetic polyneuropathy; E11.65 Type 2 diabetes mellitus with hyperglycemia; I25.10 Atherosclerotic heart disease of native coronary artery without angina pectoris; E78.5 Hyperlipidemia, unspecified; M48.061 Spinal stenosis, lumbar region without neurogenic claudication; N48.1 Balanitis; Z87.891 Personal history of nicotine dependence; Z59.00 Homelessness unspecified; Z89.411 Acquired absence of right great toe; Z90.49 Acquired absence of other specified parts of digestive tract; Z89.412 Acquired absence of left great toe; Z79.82 Long term (current) use of aspirin
CPT/HCPCS: 36415; 73700; 73718; 80048; 80053; 80307; 81001; 82962; 85025; 85652; 86141; 86706; 86803; 87077; 87081; 87086; 87186; 87205; 87340; 99291; G0378; J1815; J3490

== ENCOUNTER 2024-11-26 12:08 | Inpatient (IN) | payer MEDICAID ==
[~2024-11-26] VITALS: Ht 165.1 cm; Wt 54.5 kg
[~2024-11-26 12:08] MED LIST changes: +BACDST PO; -DOXY50CA PO; +FAMO20TA10 PO; +MUPI2OIN2 EACHNOSTRI
[2024-11-26 13:45] LABS: Basophils # (auto) 0 10 ^3/uL (0-0.2); Basophils % (auto) 0.6 % (0.0-2.0); Eosinophils # (auto) 0.1 10 ^3/uL (0-0.8); Eosinophils % (auto) 2.3 % (0.0-7.0); Hematocrit 35.5 % (41.0-53.0); Hemoglobin 11.6 g/dL (13.5-17.5); Lymphocytes # (auto) 1.7 10 ^3/uL (0.4-5.4); Lymphocytes % (auto) 30.4 % (10.0-50.0); Mean Corpuscular Hemoglobin 26.2 pg (28.0-32.0); Mean Corpuscular Hgb Conc. 32.8 g/dL (32.0-36.0); Monocytes # (auto) 0.5 10 ^3/uL (0-1.3); Monocytes % (auto) 9.1 % (0.0-12.0); Neutrophils # (auto) 3.3 10 ^3/uL (1.6-8.6); Neutrophils % (auto) 57.6 % (37.0-80.0); Nucleated Red Blood Cells % 0.1 %; Platelet Count (auto) 592 10^3/uL (140-450); Red Blood Cells 4.43 10^6/uL (4.5-5.90); Red Cell Distribution Width 17.2 % (11.8-14.3); White Blood Cell 5.7 10^3/uL (4.4-10.8)
--- NOTE | 2024-11-26 13:46 | ED.PDOC ---
History of Present Illness HPI Comments 54-year-old male who comes in with chief complaint of right foot pain and possible infection. The patient states that the symptoms started on Sunday. The patient has no fever or chills. The patient was no other complaints at this time. He states that he has not had any recent trauma. The patient was had s urgery on that foot in the past approximately one year ago. Chief Complaint: Lower Extremity Time Seen by MD: 12:56 Primary Care Provider: NONE Reviewed Notes: Nurses Notes, Medications, Allergies (No allergies to medications) Allergies: Coded Allergies: NO KNOWN ALLERGIES (Unverified , 01/07/24) Home Meds Active Scripts Mupirocin (Pseudomonas Fluores (Mupirocin) 2 % Oin, 2 % EACHNOSTRI BID for 10 Days, #1 OIN Prov:REBEKAH HARPER [facility] 11/11/24 Famotidine (PEPCID TABLET) 20 Mg Tb, 1 TAB PO BID for 30 Days, #60 TAB 5 Refills Prov:REBEKAH HARPER [facility] 11/11/24 Sulfamethoxazole W/Trimethopri (Bactrim Ds Tablet) 1 Tab Tb, 1 TAB PO BID for 10 Days, #20 TAB Prov:REBEKAH HARPER [facility] 11/11/24 Povidone Iodine (Betadine Antiseptic Dry P) 5 % Aer, 5 % EX TID for 30 Days, #1 AER apply in the foot wounds Prov:CESAR FRANCO [facility] 11/04/24 Mupirocin Calcium (Topical) (MUPIROCIN) 2 % Cre, 2 % EX BID for 6 Days, #1 CRE apply in the penis areas Prov:CESAR FRANCO RESIDENT 11/04/24 Metoprolol Succinate (Metoprolol Succinate Er) 25 Mg Tab, 1 TAB PO DAILY for 30 Days, #30 TAB 1 Refill Prov:WANDER MERCER [facility] 09/15/24 Clopidogrel Bisulfate (Plavix) 75 Mg Tab, 1 TAB PO DAILY for 30 Days, #30 TAB 2 Refills Prov:WANDER MERCER RESIDENT 09/15/24 Atorvastatin Calcium (ATORVASTATIN CALCIUM) 20 Mg Tab, 40 MG PO DAILY@DINNER for 30 Days, #60 TAB 1 Refill Prov:WANDER MERCER RESIDENT 09/15/24 Aspirin (Aspirin Low Dose) 81 Mg Tab, 81 MG PO DAILY for 30 Days, #30 TAB 1 Refill Prov:WANDER MERCER RESIDENT 09/15/24 Ergocalciferol (VITAMIN D 20193 UNIT) 50,000 [place], [address] UNIT PO ONCE A WEEK, #6 CAP Prov:JOSH TORREZ RESIDENT 01/08/24 Reported Medications Alprazolam (Alprazolam) 1 Mg Tab, 1 TAB PO TID for anxiety, #90 TAB 11/03/24 Linaclotide Base (LINZESS) 290 Mcg Cap, 290 MCG OR, CAP 11/03/24 Hydrocodone-Acetaminophen (Hydrocodone Bitartrate/AC 5-325 mg) 1 Tab Tab, 1 TAB PO, TAB 09/13/24 Gabapentin (Gabapentin) 300 Mg Cap, 300 MG PO TID for 30 Days, MG 09/13/24 Nicotine (Nicoderm 21MG/24HR) 1 Patch Ph, 1 PATCH TOP DAILY, #28 PATCH 1 Refill 09/13/24 Omeprazole Magnesium (Omeprazole) 20 Mg Tab, 20 MG PO, TAB 09/13/24 Insulin Glargine-Yfgn (Insulin Glargine) 100 Unit/Ml Inj, 100 UNIT SC for DIABETES, INJ 01/19/24 Insulin Lispro (Humalog Kwikpen) 100 Unit/Ml Inj, 100 UNIT SC for DIABETES, INJ 01/19/24 Information Source: Patient Mode of Arrival: Wheelchair Severity: Moderate Timing: Days Duration: Since onset Prehospital treatment: None Location: Right foot pain on the lateral aspect Associated signs and symptoms No nausea, vomiting or diarrhea Past Medical History PAST MEDICAL HISTORY: CAD, DM, HTN Surgical History: Appendectomy Surgical History (Other): Right foot surgery Family History Family History: Family hx of DM Social History Smoker: Quit Less Than 1 Year, Cigarettes Alcohol: Occasionally Drugs: Denies Drug Use Lives In: Homeless Constitutional: denies: chills, diaphoresis, fatigue, fever, malaise, sweats, weakness, others EENTM: denies: blurred vision, double vision, ear bleeding, ear discharge, ear drainage, ear pain, ear ringing, eye pain, eye redness, hearing loss, mouth pain, mouth swelling, nasal discharge, nose bleeding, nose congestion, nose pain, photophobia, tearing, throat pain, throat swelling, voice changes, others Respiratory: denies: cough, hemoptysis, orthopnea, SOB at rest, shortness of breath, SOB with excertion, stridor, wheezing, others Cardiovascular: denies: chest pain, dizzy spells, diaphoresis, Dyspnea on exertion, edema, irregular heart beat, left arm pain, lightheadedness, palpitations, PND, syncope, others Gastrointestinal: denies: abdomen distended, abdominal pain, blood streaked bowels, constipated, diarrhea, dysphagia, difficulty swallowing, hematemesis, melena, nausea, poor appetite, poor fluid intake, rectal bleeding, rectal pain, vomiting, others Genitourinary: denies: burning, dysuria, flank pain, frequency, hematuria, incontinence, penile discharge, penile sore, pain, testicle pain, testicle swelling, urgency, others Neurological: denies: dizziness, fainting, headache, left sided numbness, left sided weakness, numbness, paresthesia, pre-existing deficit, right sided numbness, right sided weakness, seizure, speech problems, tingling, tremors, weakness, others Musculoskeletal: reports: others (Right foot pain and redness); denies: back pain, gout, joint pain, joint swelling, muscle pain, muscle stiffness, neck pain Integumetry: denies: bruises, change in color, change in hair/nails, dryness, laceration, lesions, lumps, rash, wounds, others Allergic/Immunocompromised: denies: Difficulty Healing, Frequent Infections, Hives, Itching, others Hematologic/Lymphatic: denies: anemia, blood clots, easy bleeding, easy bruising, swollen glands, others Endocrine: denies: excessive hunger, excessive sweating, excessive thirst, excessive urination, flushing, intolerance to cold, intolerance to heat, unexplained weight gain, unexplained weight loss, others Psychiatric: denies: anxiety, bipolar disorder, depression, hopeless, panic disorder, schizophrenia, sleepless, suicidal, others Physical Exam General Appearance: Moderate Distress HEENT: Normal ENT Inspection, Pharynx Normal, TMs Normal Neck: Full Range of Motion, Non-Tender, Normal, Normal Inspection Respiratory: Chest Non-Tender, Lungs Clear, No Accessory Muscle Use, No Res piratory Distress, Normal Breath Sounds Cardiovascular: No Edema, No JVD, No Murmur, No Gallop, Normal Peripheral Pulses, Regular Rate/Rhythm Breast Exam: Deferred Gastrointestinal: No Organomegaly, Non Tender, No Pulsatile Mass, Normal Bowel Sounds, Soft Genitalia: Deferred Pelvic: Deferred Rectal: Deferred Extremities: No calf tenderness, Normal capillary refill, Normal inspection, Normal range of motion, Non-tender, No pedal edema Musculoskeletal : Location: Right Extremity Location: Foot (Great toe amputation) Apperance: Limited ROM, Tenderness: Moderate, Other (Redness) Neurologic: Alert, security professional II-XII nml as Tested, No Motor Deficits, Normal Affect, Normal Mood, No Sensory Deficits Cerebellar Function: Normal Reflexes: Normal Skin: Dry, Normal Color, Warm Lymphatic: No Adenopathy Was a procedure done? Was a procedure done?: No Differential Dx Considerations may include: Fracture, strain, contusion, cellulitis, osteomyelitis X-Ray, Labs, Meds, VS Vital Signs Date Time Temp Pulse Resp B/P (MAP) Pulse Ox O2 Delivery O2 Flow Rate FiO2 11/26/24 12:57 99.1 80 16 110/74 (86) 100 Lab Test 11/26/24 13:29 Range/Units White Blood Count 5.7 4.4-10.8 10^3/uL Red Blood Count 4.43 L 4.5-5.90 10^6/uL Hemoglobin 11.6 L 13.5-17.5 g/dL Hematocrit 35.5 L 41.0-53.0 % Mean Corpuscular Volume 80.0 80.0-100.0 fL Mean Corpuscular Hemoglobin 26.2 L 28.0-32.0 pg Mean Corpuscular Hemoglobin Concent 32.8 32.0-36.0 g/dL Red Cell Distribution Width 17.2 H 11.8-14.3 % Platelet Count 592 H 140-450 10^3/uL Mean Platelet Volume 7.0 6.9-10.8 fL Neutrophils (%) (Auto) 57.6 37.0-80.0 % Lymphocytes (%) (Auto) 30.4 10.0-50.0 % Monocytes (%) (Auto) 9.1 0.0-12.0 % Eosinophils (%) (Auto) 2.3 0.0-7.0 % Basophils (%) (Auto) 0.6 0.0-2.0 % Neutrophils # (Auto) 3.3 1.6-8.6 10 ^3/uL Lymphocytes # (Auto) 1.7 0.4-5.4 10 ^3/uL Monocytes # (Auto) 0.5 0-1.3 10 ^3/uL Eosinophils # (Auto) 0.1 0-0.8 10 ^3/uL Basophils # (Auto) 0 0-0.2 10 ^3/uL Nucleated Red Blood Cells 0.1 % Erythrocyte Sedimentation Rate 29 H 0-20 mm/hr Sodium Level 133 L 136-145 mmol/L Potassium Level 5.0 3.5-5.1 mmol/L Chloride Level 104 98-107 mmol/L Carbon Dioxide Level 22 20-31 mmol/L Anion Gap 7 5-15 Blood Urea Nitrogen 26 H 9-23 mg/dL Creatinine 1.00 0.700-1.30 mg/dL Glomerular Filtration Rate Calc 89 >90 mL/min BUN/Creatinine Ratio 26.0 H 10.0-20.0 Serum Glucose 282 H 74-106 mg/dL Calcium Level 9.7 8.7-10.4 mg/dL CT scan of the right foot shows: FINDINGS/IMPRESSION: No acute fracture or dislocation. Diffuse vascular atherosclerotic disease is present. Degenerative changes are present at the ankle joint. Post resection of the 1st digit from the level of the metatarsal. Slight bony erosive changes are present associated with the distal 1st metatarsal. Osteomyelitis is not completely excluded. MRI can be obtained to further evaluate if clinically indicated. Diffuse subcutaneous soft-tissue edema and swelling may represent cellulitis. ATED BY: DESTIN RAO MD IV Hep-Lock was established The patient was started on clindamycin IV piggyback The CBC and chemistry panel is within normal limits except for mild hyperglycemia At this time, the patient will be admitted to the hospitalist Images Reviewed?: Images reviewed and evaluated by me Time of 1ST Reevaluation: 13:45 Reevaluation 1ST: Improved Patient Education/Counseling: Diagnosis, Treatment, Prognosis Family Education/Counseling: No Family Present Departure 1 Departure Time of Disposition: 15:34 Impression: Primary Impression: Foot osteomyelitis, right Qualified Codes: M86.9 - Osteomyelitis, unspecified Disposition: 09 ADMITTED INPATIENT Admit to: Med Surg Condition: Fair Critical Care Note Critical Care Time?: No Stability Stability form required: Yes Unstable for transfer: ED Physician Assesment (Clinical assesment) Heart Score Heart Score: Heart Score Response (Comments) Value History N/A 0 EKG N/A 0 Age N/A 0 Risk Factors N/A 0 Troponin N/A 0 Total 0 KEITH PARISI MD Nov 26, 2024 13:46
--- NOTE | 2024-11-26 14:09 | DVH ---
EXAMINATION: CT CT R FOOT WO CONTRAST INDICATION: pain COMPARISON: MRI MRI R FOOT WO CONTRAST on DOS: 11/11/24, CT CT R FOOT WO CONTRAST on DOS: 11/10/24, CT C T L FOOT WO CONTRAST on DOS: 11/10/24, CT CT R KNEE WO CONTRAST on DOS: 01/07/24, CT CT L FOOT WO CONTRAS T on DOS: 01/07/24 TECHNIQUE: CT of the right foot was performed without contrast. Volume transverse images were obtaine d reconstructed in multiple planes using bone and soft tissue algorithms. FINDINGS/IMPRESSION: No acute fracture or dislocation. Diffuse vascular atherosclerotic disease is present. Degenerative changes are present at the ankle joint. Post resection of the 1st digit from the level of the metatarsal. Slight bony erosive changes are present associated with the distal 1st metatarsal. Osteomyelitis is n ot completely excluded. MRI can be obtained to further evaluate if clinically indicated. Diffuse subcutaneous soft-tissue edema and swelling may represent cellulitis.
[2024-11-26 14:15] LABS: Erythrocyte Sedimentation Rate 29 mm/hr (0-20)
[2024-11-26 14:21] LABS: Chloride 104 mmol/L (98-107)
[2024-11-26 14:22] LABS: Anion Gap 7 (5-15); Carbon Dioxide 22 mmol/L (20-31)
[2024-11-26 14:23] LABS: Calcium 9.7 mg/dL (8.7-10.4)
[2024-11-26 14:30] LABS: Blood Urea Nitrogen 26 mg/dL (9-23); Glucose 282 mg/dL (74-106); Sodium 133 mmol/L (136-145)
[2024-11-26 19:01] VITALS: BP 116/73; PULSE 80; RESP 20; TEMP 97.8; O2SAT 100
[2024-11-26] MEDS ORDERED: ACETAMINOPHEN 325 MG TAB PO PRN (19:30)
[2024-11-26] MEDS ORDERED: DEXTROSE (50%) 50ML SYRG IV PRN (19:30)
[2024-11-26] MEDS ORDERED: ONDANSETRON HCL 4 MG/2 ML VIAL IV PRN (19:30)
[2024-11-26] MEDS: HYDROcodone-ACET 5/325MG TAB PO PRN (21:34)
[2024-11-26] MEDS ORDERED: GABAPENTIN 300 MG CAP PO SCH (22:00)
[2024-11-26] MEDS ORDERED: ATORVASTATIN 20 MG TAB PO SCH (22:00)
[2024-11-26] MEDS ORDERED: InsuLIN REG 1unit/0.01ml Soln (100units/ml) SC SCH (22:00)
[2024-11-26] MEDS ORDERED: ACCU-CHEK COMFORT CURVE STRIP VI SCH (22:00)
--- NOTE | 2024-11-26 23:59 | DVHHP2 ---
History of Present Illness Reason for Visit: Right foot wound History of Present Illness 54-year-old male reports worsening to right foot wounds. Patient was recently discharged. He states recently completing his antibiotic therapy post discharge. He reports worsening wound to right foot. He states not being able to schedule an appointment with Podiatry as an outpatient yet. Reports tenderness on palpation. No fever or chills. Other acute complaints reported. Past Medical History Hypertension, diabetes mellitus, CAD Past Surgical History Appendectomy, right foot toe amputation Family History Diabetes mellitus Smoke: Quit ALCOHOL: occassional Drugs: None Lives: with Family Review of Systems Review of Systems Review of systems are currently negative otherwise addressed HPI. Allergies: Coded Allergies: NO KNOWN ALLERGIES (Unverified , 01/07/24) Medications Current Medications Medications Dose Ordered Sig/Gemma Route Start Time Stop Time Status Last Admin Dose Admin Clopidogrel Bisulfate 75 mg DAILY PO 11/27/24 10:00 Atorvastatin Calcium 40 mg HS PO 11/26/24 22:00 Gabapentin 300 mg TID PO 11/26/24 22:00 Metoprolol Succinate 25 mg DAILY PO 11/27/24 10:00 Diagnostic Test (Pha) 1 strip ACHS 11/26/24 22:00 Insulin Human Regular ACHS SC 11/26/24 22:00 Dextrose 50 ml UD PRN IV 11/26/24 19:30 Acetaminophen/ Hydrocodone Bitart 1 tab Q4HP PRN PO 11/26/24 19:30 11/26/24 21:34 1 TAB Ondansetron HCl 4 mg Q4HP PRN IV 11/26/24 19:30 Enoxaparin Sodium 40 mg DAILY SC 11/27/24 10:00 Acetaminophen 650 mg Q6HP PRN PO 11/26/24 19:30 Exam Vital Signs Vital Signs Date Time Temp Pulse Resp B/P (MAP) Pulse Ox O2 Delivery O2 Flow Rate FiO2 11/26/24 19:01 80 20 100 Room Air 11/26/24 19:01 97.8 116/73 (87) 97.8 Exam Gen: 54-year-old male mild distress. Skin: Warm, dry, normal color and texture, no rash. HEENT: Normocephalic atraumatic, mucous membranes moist and pink. Neck: Cervical and supraclavicular nodes normal without enlargement, trachea is midline, thyroid gland is normal without masses. Pulmonary: Clear to auscultation and percussion bilaterally. Cardiac: Regular rate and rhythm. No murmur Abdomen: Soft, nontender, nondistended, bowel sounds present all 4 quadrants, no guarding, no rigidity, no organomegaly. Extremities: No cyanosis, clubbing, right foot with multiple wounds Neuro: Cranial nerves II through XII grossly intact, normal affect and speech, no focal motor deficits. Labs/Xrays ORDERING PHYSICIAN: KEITH PARISI MD PROCEDURE(s): RFTCT - CT R FOOT WO CONTRAST REASON: pain ORDER NUMBER(s): [id number], ACCESSION NUMBER(s): [id number] EXAMINATION: CT CT R FOOT WO CONTRAST INDICATION: pain COMPARISON: MRI MRI R FOOT WO CONTRAST on DOS: 11/11/24, CT CT R FOOT WO CONTRAST on DOS: 11/10/24, CT CT L FOOT WO CONTRAST on DOS: 11/10/24, CT CT R KNEE WO CONTRAST on DOS: 01/07/24, CT CT L FOOT WO CONTRAST on DOS: 01/07/24 TECHNIQUE: CT of the right foot was performed without contrast. Volume transverse images were obtained reconstructed in multiple planes using bone and soft tissue algorithms. FINDINGS/IMPRESSION: No acute fracture or dislocation. Diffuse vascular atherosclerotic disease is present. Degenerative changes are present at the ankle joint. Post resection of the 1st digit from the level of the metatarsal. Slight bony erosive changes are present associated with the distal 1st metatarsal. Osteomyelitis is not completely excluded. MRI can be obtained to f urther evaluate if clinically indicated. Diffuse subcutaneous soft-tissue edema and swelling may represent cellulitis. Labs Test 11/26/24 13:29 Range/Units White Blood Count 5.7 4.4-10.8 10^3/uL Red Blood Count 4.43 L 4.5-5.90 10^6/uL Hemoglobin 11.6 L 13.5-17.5 g/dL Hematocrit 35.5 L 41.0-53.0 % Mean Corpuscular Volume 80.0 80.0-100.0 fL Mean Corpuscular Hemoglobin 26.2 L 28.0-32.0 pg Mean Corpuscular Hemoglobin Concent 32.8 32.0-36.0 g/dL Red Cell Distribution Width 17.2 H 11.8-14.3 % Platelet Count 592 H 140-450 10^3/uL Mean Platelet Volume 7.0 6.9-10.8 fL Neutrophils (%) (Auto) 57.6 37.0-80.0 % Lymphocytes (%) (Auto) 30.4 10.0-50.0 % Monocytes (%) (Auto) 9.1 0.0-12.0 % Eosinophils (%) (Auto) 2.3 0.0-7.0 % Basophils (%) (Auto) 0.6 0.0-2.0 % Neutrophils # (Auto) 3.3 1.6-8.6 10 ^3/uL Lymphocytes # (Auto) 1.7 0.4-5.4 10 ^3/uL Monocytes # (Auto) 0.5 0-1.3 10 ^3/uL Eosinophils # (Auto) 0.1 0-0.8 10 ^3/uL Basophils # (Auto) 0 0-0.2 10 ^3/uL Nucleated Red Blood Cells 0.1 % Erythrocyte Sedimentation Rate 29 H 0-20 mm/hr Sodium Level 133 L 136-145 mmol/L Potassium Level 5.0 3.5-5.1 mmol/L Chloride Level 104 98-107 mmol/L Carbon Dioxide Level 22 20-31 mmol/L Anion Gap 7 5-15 Blood Urea Nitrogen 26 H 9-23 mg/dL Creatinine 1.00 0.700-1.30 mg/dL Glomerular Filtration Rate Calc 89 >90 mL/min BUN/Creatinine Ratio 26.0 H 10.0-20.0 Serum Glucose 282 H 74-106 mg/dL Calcium Level 9.7 8.7-10.4 mg/dL Assessment/Plan Assessment/Plan Assessment Right foot osteomyelitis Diabetes mellitus Hypertension Plan Admit the patient to [facility] to the hospitalist Podiatry consultation Zosyn/vancomycin Resume home medications Pain management Continue treatment per orders. Plan discussed with: Patient My Orders Orders - KYLIE AVILA Procedure Category Date Status Time Blood Culture TALON 11/26/24 In Process 19:24 *Podiatry Consult CONS 11/26/24 Transmitted Joel/Jack 19:24 Clopidogrel Bisulfate PHA 11/27/24 In Process (Plavix) 10:00 Atorvastatin (Lipitor) PHA 11/26/24 In Process 22:00 Gabapentin Capsule PHA 11/26/24 In Process (Neurontin Capsule) 22:00 Metoprolol Xl PHA 11/27/24 In Process Succinate (Toprol Xl) 10:00 Basic Metabolic Panel LAB 11/27/24 Verified 04:00 Glucose Blood PHA 11/26/24 In Process (Accu-Chek Comfort 22:00 Insulin R (Human) PHA 11/26/24 In Process (Insulin R) 22:00 Dextrose 50% Syringe PHA 11/26/24 In Process 19:30 Admit ADMIT 11/26/24 Transmitted 19:24 Hydrocodone-Acet PHA 11/26/24 In Process 5/325mg Tab ([place] 19:30 Ondansetron Hcl PHA 11/26/24 In Process (Zofran) 19:30 Enoxaparin Sodium PHA 11/27/24 In Process (Lovenox) 10:00 Complete Blood Count LAB 11/27/24 Verified 04:00 Cardiac DIET 11/27/24 Transmitted Diet-2gna,Lofat,Lochol Breakfast Condition: Stable LILA 11/26/24 In Process 19:24 Acetaminophen Tablet PHA 11/26/24 In Process (Tylenol Tablet) 19:30 Bedrest With Bathroom LILA 11/26/24 In Process Privileg 19:24 * Wound Consult CONS 11/26/24 Transmitted Date of Service: Nov 26, 2024 Billing Provider: KYLIE AVILA Common Visit Codes: [id number] INP/OBS CARE (HIGH) KYLIE AVILA Nov 26, 2024 23:59
[2024-11-27] MEDS ORDERED: METOPROLOL SUCCINATE XL 50 MG TAB PO SCH (10:00)
[2024-11-27] MEDS ORDERED: ENOXAPARIN SOD 40 MG/0.4 ML SYRINGE SC SCH (10:00)
[2024-11-27] MEDS ORDERED: CLOPIDOGREL BISULFATE 75 MG TAB PO SCH (10:00)
== END 2024-11-27 01:17 | disposition left against medical advice (07) | DRG 344 ==
LOC: ER 12:08 → OVERFLOW 19:24
PROVIDERS: ADMIT Nurse Practitioner; ATTEND Nurse Practitioner
DX: E11.69 Type 2 diabetes mellitus with other specified complication (principal); M86.8X7 Other osteomyelitis, ankle and foot; Z53.29 Procedure and treatment not carried out because of patient's decision for other reasons; I10 Essential (primary) hypertension; I25.10 Atherosclerotic heart disease of native coronary artery without angina pectoris; Z83.3 Family history of diabetes mellitus; Z87.891 Personal history of nicotine dependence; Z59.00 Homelessness unspecified; Z79.4 Long term (current) use of insulin; Z79.899 Other long term (current) drug therapy
CPT/HCPCS: 36415; 73700; 80048; 85025; 85652; 87040; G0378

== ENCOUNTER 2024-12-13 19:12 | Emergency (ER) | payer MEDICAID ==
[~2024-12-13] VITALS: Ht 162.6 cm; Wt 59.0 kg
--- NOTE | 2024-12-13 20:12 | DVH ---
CHEST RADIOGRAPH Indication: Chest pain Technique: Single frontal view of the chest was obtained Comparison: XY CHEST PORTABLE on DOS: 11/01/24, XY CHEST PORTABLE on DOS: 09/12/24 FINDINGS: Lines and Tubes: Pendant over the mediastinum Lungs: No focal consolidation. Pleura: No effusion. No pneumothorax. Cardiomediastinal contours: Unremarkable Bones: No acute osseous abnormality. IMPRESSION: 1. No acute cardiopulmonary disease.
[2024-12-13] MEDS: KETOROLAC TROMETH 60MG/2ML VIAL IM ONE (20:44)
[2024-12-13 21:16] LABS: Urine Bacteria None Seen /hpf (None Seen)
[2024-12-13 21:28] LABS: Urine Blood Negative /uL (Negative); Urine Clarity Clear (Clear); Urine Color Light-Yellow (Yellow); Urine Protein, UAD Negative (Negative); Urine Specific Gravity 1.029 (1.001-1.035); Urine Squamous Epithelial Cell FEW /hpf (<5); Urine Urobilinogen Normal (Negative); Urine WBC < 1 /HPF (0-3); Urine pH 5.5 (5.0-9.0)
[2024-12-13] MEDS ORDERED: ACET500T58 PO (21:46)
--- NOTE | 2024-12-13 21:47 | ED.PDOC ---
HPI Comments This patient is a Swedish-speaking only 54-year-old male who arrives the ED today with complaints of chest pain that began this morning and have continued intermittently throughout the day. Patient states he has seen a traffic supervisor in the past and was told that he had coronary artery disease.. Patient states the pain is sharp in nature and has abdomen flowed throughout the day. 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 Patient denies any fever nausea or vomiting. Patient was mildly tachycardic at arrival. Chief Complaint: Chest Pain Time Seen by MD: 19:16 Primary Care Provider: NONE Reviewed Notes: Nurses Notes Allergies: Coded Allergies: NO KNOWN ALLERGIES (Unverified , 01/07/24) Home Meds Active Scripts Mupirocin (Pseudomonas Fluores (Mupirocin) 2 % Oin, 2 % EACHNOSTRI BID for 10 Days, #1 OIN Prov:REBEKAH HARPER RESIDENT 11/11/24 Famotidine (PEPCID TABLET) 20 Mg Tb, 1 TAB PO BID for 30 Days, #60 TAB 5 Refills Prov:REBEKAH HARPER [facility] 11/11/24 Sulfamethoxazole W/Trimethopri (Bactrim Ds Tablet) 1 Tab Tb, 1 TAB PO BID for 10 Days, #20 TAB Prov:REBEKAH HARPER [facility] 11/11/24 Povidone Iodine (Betadine Antiseptic Dry P) 5 % Aer, 5 % EX TID for 30 Days, #1 AER apply in the foot wounds Prov:CESAR FRANCO RESIDENT 11/04/24 Mupirocin Calcium (Topical) (MUPIROCIN) 2 % Cre, 2 % EX BID for 6 Days, #1 CRE apply in the penis areas Prov:CESAR FRANCO RESIDENT 11/04/24 Metoprolol Succinate (Metoprolol Succinate Er) 25 Mg Tab, 1 TAB PO DAILY for 30 Days, #30 TAB 1 Refill Prov:WANDER MERCER RESIDENT 09/15/24 Clopidogrel Bisulfate (Plavix) 75 Mg Tab, 1 TAB PO DAILY for 30 Days, #30 TAB 2 Refills Prov:WANDER MERCER RESIDENT 09/15/24 Atorvastatin Calcium (ATORVASTATIN CALCIUM) 20 Mg Tab, 40 MG PO DAILY@DINNER for 30 Days, #60 TAB 1 Refill Prov:WANDER MERCER RESIDENT 09/15/24 Aspirin (Aspirin Low Dose) 81 Mg Tab, 81 MG PO DAILY for 30 Days, #30 TAB 1 Refill Prov:YANNI LANGWANDER CALDERON RESIDENT 09/15/24 Ergocalciferol (VITAMIN D 20206 UNIT) 50,000 [place], [address] UNIT PO ONCE A WEEK, #6 CAP Prov:JOSH TORREZ RESIDENT 01/08/24 Reported Medications Alprazolam (Alprazolam) 1 Mg Tab, 1 TAB PO TID for anxiety, #90 TAB 11/03/24 Linaclotide Base (LINZESS) 290 Mcg Cap, 290 MCG OR, CAP 11/03/24 Hydrocodone-Acetaminophen (Hydrocodone Bitartrate/AC 5-325 mg) 1 Tab Tab, 1 TAB PO, TAB 09/13/24 Gabapentin (Gabapentin) 300 Mg Cap, 300 MG PO TID for 30 Days, MG 09/13/24 Nicotine (Nicoderm 21MG/24HR) 1 Patch Ph, 1 PATCH TOP DAILY, #28 PATCH 1 Refill 09/13/24 Omeprazole Magnesium (Omeprazole) 20 Mg Tab, 20 MG PO, TAB 09/13/24 Insulin Glargine-Yfgn (Insulin Glargine) 100 Unit/Ml Inj, 100 UNIT SC for DIABETES, INJ 01/19/24 Insulin Lispro (Humalog Kwikpen) 100 Unit/Ml Inj, 100 UNIT SC for DIABETES, INJ 01/19/24 Information Source: Patient Mode of Arrival: Wheelchair Severity: Moderate Timing: Hours Duration: Intermittent Prehospital treatment: None Location: Chest (L) Radiation: No Radiation Quality: Sharp, Stabbing Onset: At Rest Cardiac Risk Factors: Hyperlipidemia, HTN, Diabetes History of: Similar pain in past Past Medical History PAST MEDICAL HISTORY: CAD, DM, HTN Surgical History: Appendectomy Family History Family History: Family hx of DM Social History Smoker: Quit Less Than 1 Year, Cigarettes Alcohol: Occasionally Drugs: Denies Drug Use Lives In: Homeless Constitutional: denies: chills, diaphoresis, fatigue, fever, malaise, sweats, weakness, others EENTM: denies: blurred vision, double vision, ear bleeding, ear discharge, ear drainage, ear pain, ear ringing, eye pain, eye redness, hearing loss, mouth pain, mouth swelling, nasal discharge, nose bleeding, nose congestion, nose pain, photophobia, tearing, throat pain, throat swelling, voice changes, others Respiratory: denies: cough, hemoptysis, orthopnea, SOB at rest, shortness of breath, SOB with excertion, stridor, wheezing, others Cardiovascular: reports: chest pain; denies: dizzy spells, diaphoresis, Dyspnea on exertion, edema, irregular heart beat, left arm pain, lightheadedness, palpitations, PND, syncope, others Gastrointestinal: denies: abdomen distended, abdominal pain, blood streaked bowels, constipated, diarrhea, dysphagia, difficulty swallowing, hematemesis, melena, nausea, poor appetite, poor fluid intake, rectal bleeding, rectal pain, vomiting, others Genitourinary: denies: burning, dysuria, flank pain, frequency, hematuria, incontinence, penile discharge, penile sore, pain, testicle pain, testicle swelling, urgency, others Neurological: denies: dizziness, fainting, headache, left sided numbness, left sided weakness, numbness, paresthesia, pre-existing deficit, right sided numbness, right sided weakness, seizure, speech problems, tingling, tremors, weakness, others Musculoskeletal: denies: back pain, gout, joint pain, joint swelling, muscle pain, muscle stiffness, neck pain, others Integumetry: denies: bruises, change in color, change in hair/nails, dryness, laceration, lesions, lumps, rash, wounds, others Allergic/Immunocompromised: denies: Difficulty Healing, Frequent Infections, Hives, Itching, others Hematologic/Lymphatic: denies: anemia, blood clots, easy bleeding, easy bruising, swollen glands, others Endocrine: denies: excessive hunger, excessive sweating, excessive thirst, excessive urination, flushing, intolerance to cold, intolerance to heat, unexp lained weight gain, unexplained weight loss, others Psychiatric: denies: anxiety, bipolar disorder, depression, hopeless, panic disorder, schizophrenia, sleepless, suicidal, others Physical Exam General Appearance: Mild Distress (Patient appears to be in Mild distress at time of evaluation.), Normal HEENT: Normal ENT Inspection, Pharynx Normal, TMs Normal Neck: Full Range of Motion, Non-Tender, Normal, Normal Inspection Respiratory: Chest Non-Tender, Lungs Clear, No Accessory Muscle Use, No Respiratory Distress, Normal Breath Sounds, Other ( unremarkable auscultation bilateral lung camacho.) Cardiovascular: No Edema, No JVD, No Murmur, No Gallop, Normal Peripheral Pulses, Tachycardia Breast Exam: Deferred Gastrointestinal: No Organomegaly, Non Tender, No Pulsatile Mass, Normal Bowel Sounds, Soft Genitalia: Deferred Pelvic: Deferred Rectal: Deferred Extremities: No calf tenderness, Normal capillary refill, Normal inspection, Normal range of motion, Non-tender, No pedal edema Neurologic: Alert, No Motor Deficits, Normal Affect, Normal Mood, No Sensory Deficits Cerebellar Function: Normal Reflexes: Normal Skin: Dry, Normal Color, Warm Lymphatic: No Adenopathy Was a procedure done? Was a procedure done?: No CP Differential Dx Differential Diagnosis: A-fib, Anxiety / Panic Attack, Atrial Dysrhythmia, AV Block 1st Degree, ME Differential Diagnosis: CHF X-Ray, Labs, Meds, VS Vital Signs Date Time Temp Pulse Resp B/P (MAP) Pulse Ox O2 Delivery O2 Flow Rate FiO2 12/13/24 20:55 98.2 99 19 110/71 (84) 98 98.2 12/13/24 20:55 99 19 98 Room Air 12/13/24 19:20 98.7 103 16 116/78 (91) 100 Lab Test 12/13/24 21:15 12/13/24 20:12 12/13/24 19:28 Range/Units Urine Color Light-yellow Yellow Urine Clarity Clear Clear Urine pH 5.5 5.0-9.0 Urine Specific [place] 1.029 1.001-1.035 Urine Protein Negative Negative Urine Ketones Negative Negative Urine Blood Negative Negative /uL Urine Nitrite Negative Negative Urine Bilirubin Negative Negative Urine Urobilinogen Normal Negative mg/dL Urine Leukocyte Esterase Negative Negative /uL Urine RBC None seen 0 - 3 /hpf Urine Microscopic WBC < 1 0-3 /HPF Urine Squamous Epithelial Cells Few <5 /hpf Urine Bacteria None seen None Seen /hpf Urine Glucose 4+ H Normal mg/dL Troponin I High Sensitivity < 3 L < 3 L </=54 ng/L B-Type Natriuretic Peptide 14.23 0-100 pg/mL Lipase 51 12-53 U/L Current Medications Medications (Trade) Dose Ordered Sig/Gemma Route Start Time Stop Time Status Last Admin Ketorolac Tromethamine (Toradol Injection) 30 mg ONCE ONCE IM 12/13/24 19:30 12/13/24 19:31 DC 12/13/24 20:44 X-Ray, Labs, Meds, VS Comment All studies performed the ED were evaluated by me personally. EKG revealed a mild sinus tachycardia with a rate of 100. LA interval of 153 and QT interval of 358. Unremarkable EKG. Laboratories studies were unremarkable for any CHF for acute coronary concern. Patient did have a mildly elevated lipase which is probably due to alcohol consumption and may be chronic in nature. Patient declined any pain in the upper abdomen at time of evaluation patient will be sent home with pain medication and advised him to follow up with primary care provider for cardiac referral and evaluation. Patient may need to address his coronary artery concerns. Time of 1ST Reevaluation: 21:45 Reevaluation 1ST: Improved Consultation: PCP, Cardiology Patient Education/Counseling: Diagnosis, Treatment Family Education/Counseling: Diagnosis, Treatment Departure 1 Departure Time of Disposition: 21:46 Impression: Primary Impression: Chest pain Disposition: HOME / SELF CARE / HOMELESS Condition: Stable Additional Instructions: Advised patient utilize medication as needed for symptomatic relief in additionally, patient should follow up with the primary care provider for cardiac referral and evaluation for discussions related to his history of coronary artery disease. e-Prescriptions Acetaminophen (Acetaminophen) 500 Mg Tab 500 MG PO Q4HP PRN, #30 TAB Prov: NEIL HINTON PAC 12/13/24 Discharged With: Self, Friend Critical Care Note Critical Care Time?: No Stability Stability form required: No Heart Score Heart Score: Heart Score Response (Comments) Value History Slightly Suspicious 0 EKG Normal 0 Age 45-64 1 Risk Factors 1 or 2 risk factors 1 Troponin Normal limit 0 Total 2 NEIL HINTON PAC Dec 13, 2024 21:47
[2024-12-13 22:11] VITALS: BP 135/78; PULSE 94; RESP 17; TEMP 98.4; O2SAT 99
--- NOTE | 2024-12-14 04:35 | ECG ---
[facility] Test Date: 2024-12-13 Test Time: 20:34:00 Pat Name: ISAIAH RAMOS Department: ER Room: Gender: M Resort Host: : 1970 Requested By: NEIL HINTON Order Number: [id number] Reading MD: Measurements Intervals [place] Rate: 100 P: 43 ME: 153 QRS: 81 QRSD: 93 T: 35 QT: 358 QTc: 462 Interpretive Statements Sinus tachycardia Please click the below link to view image of tracing.
--- NOTE | 2024-12-14 04:37 | ECG ---
[facility] Test Date: 2024-12-13 Test Time: 19:23:24 Pat Name: ISAIAH RAMOS Department: ER Room: Gender: M Button Tufter: BRANDI : 1970 Requested By: NEIL HINTON Order Number: [id number] Reading MD: Measurements Intervals [place] Rate: 101 P: 47 CO: 145 QRS: 93 QRSD: 94 T: -1 QT: 360 QTc: 467 Interpretive Statements Sinus tachycardia Ventricular premature complex Borderline right axis deviation Borderline T abnormalities, inferior leads Please click the below link to view image of tracing.
== END 2024-12-13 22:15 | disposition home or self-care (01) ==
LOC: ER 19:12
DX: R07.89 Other chest pain (principal); I10 Essential (primary) hypertension; E11.9 Type 2 diabetes mellitus without complications; Z79.899 Other long term (current) drug therapy; Z79.84 Long term (current) use of oral hypoglycemic drugs; Z90.49 Acquired absence of other specified parts of digestive tract
CPT/HCPCS: 36415; 71045; 81001; 83690; 83880; 84484; 93005; 96372; 99285; J1885

== ENCOUNTER 2025-04-20 15:58 | Emergency (ER) | payer MEDICAID ==
[~2025-04-20] VITALS: Ht 162.6 cm; Wt 52.5 kg
[~2025-04-20 15:58] MED LIST changes: +ACET500T58 PO
--- NOTE | 2025-04-20 17:22 | DVH ---
EXAM: XY CHEST XRAY 1 VIEW Indication: left lateral chest wall pain, rib fracture Technique: Single frontal view of the chest was obtained Comparison: XY CHEST PORTABLE on DOS: 12/13/24, XY CHEST PORTABLE on DOS: 11/01/24, XY CHEST PORTABLE on DOS: 09/12/24 FINDINGS: Lines and Tubes: None Lungs: No focal consolidation. Pleura: No effusion. No pneumothorax. Cardiomediastinal contours: Unremarkable Bones: No acute osseous abnormality. IMPRESSION: No acute cardiopulmonary disease.
--- NOTE | 2025-04-20 17:25 | ED.PDOC ---
History of Present Illness HPI Comments Patient is a 55-year-old male with a past medical history of coronary artery disease, insulin-dependent type 2 diabetes mellitus, show aortic presented to the ER with a chief complaint of left-sided chest pain. Patient reported that on the 10 of April he fell while in the restroom with a HS the bath tub and hit the face chest wall following which he went to an ER in the other hospital where he was told about a fractured rib on x-ray and was given pain medications for week which improved the pain. Yesterday cane while in the restroom he fell on his chest on the front and after that started to have mild shortness of breath and pain which worsened with a deep breaths. Patient denied any cough, congestion, expectoration, fever or chills. On arrival to the ER patient's vitals were stable with a BP 104/75 mmHg, SpO2 99% room air, heart rate 79, respiratory rate 18. Chief Complaint: Rib Pain Time Seen by MD: 16:02 Primary Care Provider: NONE Allergies: Coded Allergies: NO KNOWN ALLERGIES (Unverified , 01/07/24) Home Meds Active Scripts Ibuprofen Micronized (Ibuprofen) 400 Mg Tab, 400 MG PO BIDPRN PRN for 7 Days, #14 TAB 0 Refills Prov:HORACIO CARRINGTON 04/20/25 Isopropyl Alcohol (Alcohol Wipes) 70 % Mis, 70 % EX ACHS for 14 Days, #56 MISC 0 Refills Prov:HORACIO CARRINGTON 04/20/25 Blood Glucose Monitoring Suppl (EASY TOUCH GLUCOSE MONITO) Monitor Kit, EA XX ACHS, #1 0 Refills Before meals and at bedtime Prov:HORACIO CARRINGTON 04/20/25 Lancets (Freestyle Lancets) Lancets Mis, EA XX ACHS, #56 0 Refills Before meals and at bedtime Prov:HORACIO CARRINGTON 04/20/25 Glucose Blood (EASY TOUCH GLUCOSE TEST S) Strips Karen, 1 EA ACHS for 14 Days, #56 MISC 0 Refills Prov:HORACIO CARRINGTON 04/20/25 Insulin Glargine (Basaglar Kwikpen) 100 Unit/Ml Inj, 12 UNIT SC DAILY for 14 Days, #2 INJ Prov:JHHORACIO AN RESIDENT 04/20/25 Acetaminophen (Acetaminophen) 500 Mg Tab, 500 MG PO Q4HP PRN, #30 TAB Prov:JAMAALNEIL Autumn PAC 12/13/24 Mupirocin (Pseudomonas Fluores (Mupirocin) 2 % Oin, 2 % EACHNOSTRI BID for 10 Days, #1 OIN Prov:REBEKAH HARPER [facility] 11/11/24 Famotidine (PEPCID TABLET) 20 Mg Tb, 1 TAB PO BID for 30 Days, #60 TAB 5 Refills Prov:REBEKAH HARPER [facility] 11/11/24 Sulfamethoxazole W/Trimethopri (Bactrim Ds Tablet) 1 Tab Tb, 1 TAB PO BID for 10 Days, #20 TAB Prov:REBEKAH HARPER [facility] 11/11/24 Povidone Iodine (Betadine Antiseptic Dry P) 5 % Aer, 5 % EX TID for 30 Days, #1 AER apply in the foot wounds Prov:CESAR FRANCO [facility] 11/04/24 Mupirocin Calcium (Topical) (MUPIROCIN) 2 % Cre, 2 % EX BID for 6 Days, #1 CRE apply in the penis areas Prov:CESAR FRANCO [facility] 11/04/24 Metoprolol Succinate (Metoprolol Succinate Er) 25 Mg Tab, 1 TAB PO DAILY for 30 Days, #30 TAB 1 Refill Prov:WANDER MERCER [facility] 09/15/24 Clopidogrel Bisulfate (Plavix) 75 Mg Tab, 1 TAB PO DAILY for 30 Days, #30 TAB 2 Refills Prov:WANDER MERCER [facility] 09/15/24 Atorvastatin Calcium (ATORVASTATIN CALCIUM) 20 Mg Tab, 40 MG PO DAILY@DINNER for 30 Days, #60 TAB 1 Refill Prov:WANDER MERCER [facility] 09/15/24 Aspirin (Aspirin Low Dose) 81 Mg Tab, 81 MG PO DAILY for 30 Days, #30 TAB 1 Refill Prov:WANDER MERCER RESIDENT 09/15/24 Ergocalciferol (VITAMIN D 21802 UNIT) 50,000 [place], [address] UNIT PO ONCE A WEEK, #6 CAP Prov:JOSH TORREZ RESIDENT 01/08/24 Reported Medications Alprazolam (Alprazolam) 1 Mg Tab, 1 TAB PO TID for anxiety, #90 TAB 11/03/24 Linaclotide Base (LINZESS) 290 Mcg Cap, 290 MCG OR, CAP 11/03/24 Hydrocodone-Acetaminophen (Hydrocodone Bitartrate/AC 5-325 mg) 1 Tab Tab, 1 TAB PO, TAB 09/13/24 Gabapentin (Gabapentin) 300 Mg Cap, 300 MG PO TID for 30 Days, MG 09/13/24 Nicotine (Nicoderm 21MG/24HR) 1 Patch Ph, 1 PATCH TOP DAILY, #28 PATCH 1 Refill 09/13/24 Omeprazole Magnesium (Omeprazole) 20 Mg Tab, 20 MG PO, TAB 09/13/24 Insulin Glargine-Yfgn (Insulin Glargine) 100 Unit/Ml Inj, 100 UNIT SC for DIABETES, INJ 01/19/24 Insulin Lispro (Humalog Kwikpen) 100 Unit/Ml Inj, 100 UNIT SC for DIABETES, INJ 01/19/24 Mode of Arrival: Wheelchair Past Medical History PAST MEDICAL HISTORY: CAD, DM, HTN Surgical History: Appendectomy Surgical History (Other): Coronary angiogram Family History Family History: Family hx of DM Social History Smoker: Quit Less Than 1 Year, Cigarettes Alcohol: Occasionally Drugs: Denies Drug Use Lives In: Homeless Constitutional: reports: weakness EENTM: denies: blurred vision, double vision, ear bleeding, ear discharge, ear drainage, ear pain, ear ringing, eye pain, eye redness, hearing loss, mouth pain, mouth swelling, nasal discharge, nose bleeding, nose congestion, nose pain, photophobia, tearing, throat pain, throat swelling, voice changes, others Respiratory: denies: cough, hemoptysis, orthopnea, SOB at rest, shortness of breath, SOB with excertion, stridor, wheezing, others Cardiovascular: reports: chest pain (Left sided chest and tenderness in the anterior axillary line) Gastrointestinal: denies: abdomen distended, abdominal pain, blood streaked bowels, constipated, diarrhea, dysphagia, difficulty swallowing, hematemesis, me francisco, nausea, poor appetite, poor fluid intake, rectal bleeding, rectal pain, vomiting, others Genitourinary: denies: burning, dysuria, flank pain, frequency, hematuria, incontinence, penile discharge, penile sore, pain, testicle pain, testicle swelling, urgency, others Neurological: denies: dizziness, fainting, headache, left sided numbness, left sided weakness, numbness, paresthesia, pre-existing deficit, right sided numbness, right sided weakness, seizure, speech problems, tingling, tremors, weakness, others Musculoskeletal: denies: back pain, gout, joint pain, joint swelling, muscle pain, muscle stiffness, neck pain, others Integumetry: denies: bruises, change in color, change in hair/nails, dryness, laceration, lesions, lumps, rash, wounds, others Allergic/Immunocompromised: denies: Difficulty Healing, Frequent Infections, Hives, Itching, others Hematologic/Lymphatic: denies: anemia, blood clots, easy bleeding, easy bruising, swollen glands, others Endocrine: denies: excessive hunger, excessive sweating, excessive thirst, excessive urination, flushing, intolerance to cold, intolerance to heat, unexplained weight gain, unexplained weight loss, others Psychiatric: denies: anxiety, bipolar disorder, depression, hopeless, panic disorder, schizophrenia, sleepless, suicidal, others Physical Exam General Appearance: Thin HEENT: Normal ENT Inspection, Pharynx Normal, TMs Normal Neck: Full Range of Motion, Non-Tender, Normal, Normal Inspection Respiratory: Lungs Clear, No Accessory Muscle Use, No Respiratory Distress, Normal Breath Sounds, Other (Chest wall tenderness on the left side with the bruising) Cardiovascular: No Edema, No JVD, No Murmur, No Gallop, Normal Peripheral Pulses, Regular Rate/Rhythm Breast Exam: Deferred Gastrointestinal: No Organomegaly, Non Tender, No Pulsatile Mass, Normal Bowel Sounds, Soft Genitalia: Deferred Pelvic: Deferred Rectal: Deferred Extremities: No calf tenderness, Normal capillary refill, Normal inspection, Normal range of motion, Non-tender, No pedal edema Neurologic: Alert, exterior interior specialist II-XII nml as Tested, Motor Weakness (Lower extremity weakness which is old), Normal Affect, Normal Mood, No Sensory Deficits Cerebellar Function: NOT DONE Reflexes: NOT DONE Skin: Bruises Peripheral Pulses: 2+ dorsalis pedis (R), 2+ dorsalis pedis (L), 2+ Radial (R), 2+ Radial (L) Lymphatic: NOT DONE Was a procedure done? Was a procedure done?: No Differential Dx Considerations may include: Chest wall pain, costochondritis, rib fracture X-Ray, Labs, Meds, VS Vital Signs Date Time Temp Pulse Resp B/P (MAP) Pulse Ox O2 Delivery O2 Flow Rate FiO2 04/20/25 19:31 97.8 82 20 127/86 (100) 100 97.8 04/20/25 19:11 88 18 100 Room Air 04/20/25 19:11 83 18 118/67 (84) 99 04/20/25 16:08 98.7 79 18 104/75 (85) 99 98.7 Lab Test 04/20/25 19:32 04/20/25 17:25 04/20/25 16:11 Range/Units POC Glucose 343 H 504 *H 70-106 mg/dl White Blood Count 5.7 4.4-10.8 10^3/uL Red Blood Count 4.46 L 4.5-5.90 10^6/uL Hemoglobin 12.3 L 13.5-17.5 g/dL Hematocrit 37.7 L 41.0-53.0 % Mean Corpuscular Volume 84.5 80.0-100.0 fL Mean Corpuscular Hemoglobin 27.6 L 28.0-32.0 pg Mean Corpuscular Hemoglobin Concent 32.7 32.0-36.0 g/dL Red Cell Distribution Width 16.7 H 11.8-14.3 % Platelet Count 437 140-450 10^3/uL Mean Platelet Volume 7.3 6.9-10.8 fL Neutrophils (%) (Auto) 66.1 37.0-80.0 % Lymphocytes (%) (Auto) 22.3 10.0-50.0 % Monocytes (%) (Auto) 10.1 0.0-12.0 % Eosinophils (%) (Auto) 1.1 0.0-7.0 % Basophils (%) (Auto) 0.4 0.0-2.0 % Neutrophils # (Auto) 3.8 1.6-8.6 10 ^3/uL Lymphocytes # (Auto) 1.3 0.4-5.4 10 ^3/uL Monocytes # (Auto) 0.6 0-1.3 10 ^3/uL Eosinophils # (Auto) 0.1 0-0.8 10 ^3/uL Basophils # (Auto) 0 0-0.2 10 ^3/uL Nucleated Red Blood Cells 0.0 % Sodium Level 134 L 136-145 mmol/L Potassium Level 4.4 3.5-5.1 mmol/L Chloride Level 101 98-107 mmol/L Carbon Dioxide Level 27 20-31 mmol/L Anion Gap 6 5-15 Blood Urea Nitrogen 21 9-23 mg/dL Creatinine 1.08 0.700-1.30 mg/dL Glomerular Filtration Rate Calc 81 >90 mL/min BUN/Creatinine Ratio 19.4 10.0-20.0 Serum Glucose 418 *H 74-106 mg/dL Calcium Level 9.5 8.7-10.4 mg/dL Current Medications Medications (Trade) Dose Ordered Sig/Gemma Route Start Time Stop Time Status Last Admin Ibuprofen (Motrin Tablet) 600 mg ONCE ONCE PO 04/20/25 18:45 04/20/25 18:46 DC 04/20/25 19:09 Insulin Human Regular (InsuLIN R) 5 units ONCE ONCE SC 04/20/25 19:30 04/20/25 19:31 DC 04/20/25 19:30 Sodium Chloride 1,000 ml @ 1,000 mls/hr Q1H ONCE IV 04/20/25 19:30 04/20/25 20:29 DC 04/20/25 19:30 Patient is a 55-year-old male patient with a past medical history of coronary artery disease, hypertension, hyperglycemia presented to the ER with a chief complaint of left lateral chest wall pain and bruising after fall. Chest x-ray was done which did not show any osseous abnormality. Patient was found to have high blood glucose in the range of 500s following which he was given insulin and gradually were glucose level came down to 226. Pain improved with ibuprofen. Patient was sent insulin Lantus as he reported that only 1 pen was left along with a glucose monitoring kit to his pharmacy, and ibuprofen. Patient discharged in stable condition to home Time of 1ST Reevaluation: 20:38 Reevaluation 1ST: Improved Patient Education/Counseling: Diagnosis, Treatment, Prognosis Family Education/Counseling: No Family Present SEPSIS Sepsis Screen Date sepsis recognized/suspect: Apr 20, 2025 Time Sepsis recognized/suspect: 1607 Recent Procedure: No On Antibiotic Therapy: No Respiratory Rate >20: No Heart Rate >90: No Temp<36 C (96.8 F) or >38.3 C: No SBP <90 or MAP <65 mmHG: No New Acute Mental Status Change: No Is the patient on CPAP, BIPAP,: No Physician Orders Chest Xray 1 View (04/20/25 16:46) Vital Signs Date Time Temp Pulse Resp B/P (MAP) Pulse Ox O2 Delivery O2 Flow Rate FiO2 04/20/25 19:31 97.8 82 20 127/86 (100) 100 97.8 04/20/25 19:11 88 18 100 Room Air 04/20/25 19:11 83 18 118/67 (84) 99 04/20/25 16:08 98.7 79 18 104/75 (85) 99 98.7 Laboratory Tests Test 04/20/25 17:25 White Blood Count 5.7 10^3/uL (4.4-10.8) Medications Medications Dose Ordered Sig/Gemma Route Start Time Stop Time Status Last Admin Dose Admin Ibuprofen 600 mg ONCE ONCE PO 04/20/25 18:45 04/20/25 18:46 DC 04/20/25 19:09 Insulin Human Regular 5 units ONCE ONCE SC 04/20/25 19:30 04/20/25 19:31 DC 04/20/25 19:30 Sodium Chloride 1,000 ml @ 1,000 mls/hr Q1H ONCE IV 04/20/25 19:30 04/20/25 20:29 DC 04/20/25 19:30 Departure 1 Departure Time of Disposition: 22:06 Impression: Primary Impression: Chest wall pain Additional Impressions: Fall with injury Uncontrolled type 2 diabetes mellitus with hyperglycemia Disposition: HOME / SELF CARE / HOMELESS Condition: Stable e-Prescriptions Ibuprofen Micronized (Ibuprofen) 400 Mg Tab 400 MG PO BIDPRN PRN for 7 Days, #14 TAB 0 Refills Prov: HORACIO CARRINGTON 04/20/25 Isopropyl Alcohol (Alcohol Wipes) 70 % Mis 70 % EX ACHS for 14 Days, #56 MISC 0 Refills Prov: HORACIO CARRINGTON 04/20/25 Blood Glucose Monitoring Suppl (EASY TOUCH GLUCOSE MONITO) Monitor Kit EA XX ACHS, #1 0 Refills Before meals and at bedtime Prov: HORACIO CARRINGTON 04/20/25 Lancets (Freestyle Lancets) Lancets Mis EA XX ACHS, #56 0 Refills Before meals and at bedtime Prov: HORACIO CARRINGTON 04/20/25 Glucose Blood (EASY TOUCH GLUCOSE TEST S) Strips Karen 1 EA ACHS for 14 Days, #56 MISC 0 Refills Prov: HORACIO CARRINGTON 04/20/25 Insulin Glargine (Basaglar Kwikpen) 100 Unit/Ml Inj 12 UNIT SC DAILY for 14 Days, #2 INJ Prov: HORACIO CARRINGTON 04/20/25 Critical Care Note Critical Care Time?: No Stability Stability form required: No Heart Score Heart Score: Heart Score Response (Comments) Value History N/A 0 EKG N/A 0 Age N/A 0 Risk Factors N/A 0 Troponin N/A 0 Total 0 HORACIO CARRINGTON Apr 20, 2025 17:25
[2025-04-20 17:44] LABS: Hematocrit 37.7 % (41.0-53.0); Hemoglobin 12.3 g/dL (13.5-17.5); Mean Corpuscular Hemoglobin 27.6 pg (28.0-32.0); Mean Corpuscular Volume 84.5 fL (80.0-100.0); Nucleated Red Blood Cells % 0.0 %
[2025-04-20 17:54] LABS: Chloride 101 mmol/L (98-107); Potassium 4.4 mmol/L (3.5-5.1)
[2025-04-20 17:55] LABS: Anion Gap 6 (5-15); Calcium 9.5 mg/dL (8.7-10.4); Carbon Dioxide 27 mmol/L (20-31)
[2025-04-20 17:56] LABS: Sodium 134 mmol/L (136-145)
[2025-04-20 18:00] LABS: BUN/Creatinine Ratio 19.4 (10.0-20.0); Blood Urea Nitrogen 21 mg/dL (9-23)
[2025-04-20 18:04] LABS: Glucose 418 mg/dL (74-106)
[2025-04-20] MEDS: IBUPROFEN 600 MG TAB PO ONE (19:09)
[2025-04-20] MEDS: InsuLIN REG 1unit/0.01ml Soln (100units/ml) SC ONE (19:30)
[2025-04-20] MEDS: SODIUM CHLORIDE 0.9% 1,000 ML IV ONE (19:30)
[2025-04-20 19:31] VITALS: BP 127/86; PULSE 82; RESP 20; TEMP 97.8; O2SAT 100
[2025-04-20] MEDS ORDERED: ISOP70MI4 EX (21:52)
[2025-04-20] MEDS ORDERED: INSU1INJ19 SC (21:52)
[2025-04-20] MEDS ORDERED: GLUC-224 VI (21:52)
[2025-04-20] MEDS ORDERED: LANC-347 XX (21:52)
[2025-04-20] MEDS ORDERED: BLOO-169 XX (21:52)
[2025-04-20] MEDS ORDERED: IBUP1TAB4 PO (21:52)
== END 2025-04-20 22:07 | disposition home or self-care (01) ==
LOC: ER 15:58
DX: S22.32XA Fracture of one rib, left side, initial encounter for closed fracture (principal); R07.89 Other chest pain; E11.65 Type 2 diabetes mellitus with hyperglycemia; I25.10 Atherosclerotic heart disease of native coronary artery without angina pectoris; I10 Essential (primary) hypertension; F10.90 Alcohol use, unspecified, uncomplicated; Z87.891 Personal history of nicotine dependence; Z59.00 Homelessness unspecified; Z79.899 Other long term (current) drug therapy; Z90.49 Acquired absence of other specified parts of digestive tract; Z79.02 Long term (current) use of antithrombotics/antiplatelets; W18.39XA Other fall on same level, initial encounter; Y93.89 Activity, other specified; Y92.091 Bathroom in other non-institutional residence as the place of occurrence of the external cause; Y99.8 Other external cause status; Y90.9 Presence of alcohol in blood, level not specified
CPT/HCPCS: 36415; 71045; 80048; 82947; 85025; 96360; 96372; 99284; J1815; J7030; 82962